=== PATIENT | female | born 1940 | race Caucasian/White ===

== ENCOUNTER → 2016-06-05 | Outpatient (CLI) | payer BC ==
[~2016-06-05] MED LIST: ASPEC81 PO; CLB/200 PO; CLOP1TAB15 PO; CLTP PO; ERGO1CAP35 PO; EYED; FLUO0.0543 TD; GATI0.5S OPL; LEVO25TA PO; LIDO5DIS10 TD; LTRSCR45 TD; METR0.7527 TD; NSNN50; PANT20TA PO; PRED1SUS3; SENN-61 PO; TRIA0.1O12 TD; TYLOTC500 PO
[2016-06-05 10:12] LABS: BLOOD UREA NITROGEN 12 mg/dl (7-18); BUN/CREATININE RATIO 16.1 (10-20); CARBON DIOXIDE 29 mmol/L (21-32); CHLORIDE 105 mmol/L (98-107); CREATININE 0.74 mg/dl (0.60-1.20); GLUCOSE 75 mg/dl (70-99); POTASSIUM 4.3 mmol/L (3.5-5.1); SODIUM 143 mmol/L (136-145)
[2016-06-05 10:22] LABS: ALB/GLOB RATIO 1.2 (0.9-2); ALKALINE PHOSPHATASE 105 U/L (45-117); ALT/SGPT 30 U/L (12-78); AST/SGOT 17 U/L (15-37); CHOLESTEROL 163 mg/dl (0-200); CHOLESTEROL/HDL RATIO 3.1; HDL CHOLESTEROL 53 mg/dl; LDL CHOLESTEROL CALCULATED 75 mg/dl; THYROID STIMULATING HORMONE 0.336 uIu/ml (0.300-4.500); TRIGLYCERIDES 173 mg/dl (0-150); VERY LOW DENSITY LIPOPROT CALC 35 mg/dl
[2016-06-05 10:28] LABS: ESTIMATED AVERAGE GLUCOSE 123 mg/dl; HA1C FLAG Normal (Normal)
== END | disposition home or self-care (01) ==
LOC: C.LAB 07:02
PROVIDERS: ATTEND Family Medicine
DX: M85.80 Other specified disorders of bone density and structure, unspecified site (principal); E55.9 Vitamin D deficiency, unspecified; E78.1 Pure hyperglyceridemia; E03.9 Hypothyroidism, unspecified; R73.03 Prediabetes

== ENCOUNTER → 2016-06-05 | Outpatient (CLI) | payer BC ==
[~2016-06-05] VITALS: Ht 157.5 cm; Wt 90.4 kg
[2016-06-05 16:18] VITALS: BP 135/68; PULSE 98; Ht 157.5 cm; Wt 90.4 kg
== END | disposition home or self-care (01) ==
LOC: C.NEUR 13:35
PROVIDERS: ATTEND Internal Medicine Pulmonary Disease
DX: G47.33 Obstructive sleep apnea (adult) (pediatric) (principal); J44.9 Chronic obstructive pulmonary disease, unspecified; M85.80 Other specified disorders of bone density and structure, unspecified site; E55.9 Vitamin D deficiency, unspecified; E78.1 Pure hyperglyceridemia; E03.9 Hypothyroidism, unspecified; R73.03 Prediabetes; Z79.899 Other long term (current) drug therapy

== ENCOUNTER → 2016-09-15 | Outpatient (CLI) | payer BC ==
[~2016-09-15] MED LIST changes: -PANT20TA PO; +PANT20TA2 PO
--- NOTE | 2016-09-15 15:24 | MAMMOGRAPHY REPORT ---
BILATERAL DIGITAL SCREENING MAMMOGRAM TOMOSYNTHESIS WITH CAD: 09/15/2016 CLINICAL HISTORY: Asymptomatic. Personal history of breast cancer. TECHNIQUE: Breast tomosynthesis in addition to standard 2D mammography was performed. Current study was also evaluated with a Computer Aided Detection (CAD) system. COMPARISON: Comparison is made to exams dated: 09/15/2015 mammogram, 09/09/2014 mammogram, 03/12/2014 mammogram, 09/08/2013 mammogram, 09/06/2012 mammogram, and 09/04/2011 mammogram - [facility]. BREAST COMPOSITION: There are scattered areas of fibroglandular density in both breasts. FINDINGS: No suspicious masses, calcifications, or areas of architectural distortion are noted in e ither breast. There has been no significant interval change compared to prior exams. There are stab le post surgical changes in the right 12:00 breast from prior lumpectomy, including stable atg architect ural distortion, density, and coarse dystrophic calcifications at the lumpectomy bed. A linear scar marker denotes a scar on the right superior breast. Other scattered bilateral benign-appearing radha cifications are not significantly changed. IMPRESSION: ACR BI-RADS CATEGORY 2: BENIGN There is no mammographic evidence of malignancy. A 1 year screening mammogram is recommended. The p atient will receive written notification of the results. Approximately 10% of breast cancers are not detected with mammography. A negative mammographic repor t should not delay biopsy if a clinically suggestive mass is present. Yanique Payne M.D. /:09/15/2016 14:53:52 Director Digital Advertising: Michelle HIGGINBOTHAM(Aravind)(Morgan), [facility] letter sent: Normal 1/2 BI-RADS Code: ACR BI-RADS Category 2: Benign
== END ==
LOC: C.MAMM 08:54
PROVIDERS: ATTEND Student in an Organized Health Care Education/Training Program
DX: Z12.31 Encounter for screening mammogram for malignant neoplasm of breast (principal)

== ENCOUNTER → 2017-01-02 | Outpatient (CLI) | payer BC ==
[~2017-01-02] VITALS: Ht 157.5 cm; Wt 87.5 kg
[~2017-01-02] MED LIST changes: +PANT20TA PO; -PANT20TA2 PO
[2017-01-02 12:01] VITALS: BP 137/72; PULSE 90; Ht 157.5 cm; Wt 87.5 kg
== END | disposition home or self-care (01) ==
LOC: C.NEUR 11:46
PROVIDERS: ATTEND Internal Medicine Pulmonary Disease
DX: G47.33 Obstructive sleep apnea (adult) (pediatric) (principal); G47.00 Insomnia, unspecified

== ENCOUNTER → 2017-01-25 | Outpatient (CLI) | payer BC | END | disposition home or self-care (01) | LOC: C.MAMM 08:48 | PROVIDERS: ATTEND Family Medicine | DX: M85.851 Other specified disorders of bone density and structure, right thigh (principal) ==

== ENCOUNTER → 2017-08-09 | Outpatient (CLI) | payer BC ==
[~2017-08-09] MED LIST changes: -PANT20TA PO; +PANT20TA2 PO
[2017-08-09 12:21] LABS: BASO % 0.8 %; BASO ABS # 0.08 K/uL (0-0.2); EOS % 3.7 %; EOS ABS # 0.39 K/uL (0-0.5); HEMOGLOBIN 15.6 g/dL (12.0-16.0); IG# 0.03 K/uL (0.00-0.02); MEAN CELL VOLUME 91.6 fL (80-100); MEAN CORPUSCULAR HEMOGLOBIN 30.4 pg (25-34); MEAN CORPUSCULAR HGB CONC 33.2 g/dl (32-36); MEAN PLATELET VOLUME 9.2 fL (7.4-10.4); MONO % 6.4 %; MONO ABS # 0.67 K/uL (0.11-0.59); NEUT % 69.8 %; NEUT ABS # 7.34 K/uL (1.4-6.5); PLATELET COUNT 265 K/uL (130-400); RED CELL DISTRIBUTION WIDTH CV 14.6 % (11.5-14.5); RED CELL DISTRIBUTION WIDTH SD 49.4 fL (36.4-46.3); WHITE BLOOD COUNT 10.51 K/uL (4.8-10.8)
[2017-08-09 12:33] LABS: INR 0.9 (0.9-1.1)
[2017-08-09 12:39] LABS: BLOOD UREA NITROGEN 8 mg/dl (7-18); CALCIUM 9.6 mg/dl (8.5-10.1); CARBON DIOXIDE 30 mmol/L (21-32); GLUCOSE 88 mg/dl (70-99); POTASSIUM 4.8 mmol/L (3.5-5.1); SODIUM 140 mmol/L (136-145)
== END | disposition home or self-care (01) ==
LOC: C.LABBFT 08:19
PROVIDERS: ATTEND Nurse Practitioner
DX: T14.8XXA Other injury of unspecified body region, initial encounter (principal); X58.XXXA Exposure to other specified factors, initial encounter

== ENCOUNTER 2019-03-28 08:28 | Inpatient (IN) ==
[2019-03-28] MEDS ORDERED: SODIUM CHLORIDE 0.9% 500 ML IV ONE ×2 (08:53→10:28)
[2019-03-28 09:15] LABS: Basophils # (auto) 0.03 K/uL (0-0.2); Basophils % (auto) 0.2 %; Eosinophils # (auto) 0.03 K/uL (0-0.5); Eosinophils % (auto) 0.2 %; Hematocrit (blood only) 47.4 % (37-47); Hemoglobin 15.7 g/dL (12.0-16.0); Immature Granulocytes # (auto) 0.07 K/uL (0.00-0.02); Immature Granulocytes % (auto) 0.4 %; Lymphocytes # (auto) 1.28 K/uL (1.2-3.4); Lymphocytes % (auto) 7.3 %; Mean Corpuscular Hemoglobin 30.5 pg (25-34); Mean Corpuscular Hgb Conc 33.1 g/dL (32-36); Mean Corpuscular Volume 92.2 fL (80-100); Mean Platelet Volume 9.3 fL (7.4-10.4); Monocytes # (auto) 0.89 K/uL (0.11-0.59); Monocytes % (auto) 5.1 %; Neutrophils # (auto) 15.17 K/uL (1.4-6.5); Neutrophils % (auto) 86.8 %; Platelet Count 180 K/uL (130-400); RDW Coefficient of Variation 13.9 % (11.5-14.5); Red Blood Count 5.14 M/uL (4.2-5.4); White Blood Count 17.47 K/uL (4.8-10.8)
[2019-03-28 09:18] LABS: Base Excess VBG -0.1 mEq/L; pH VBG 7.44 (7.36-7.41)
[2019-03-28 09:32] LABS: Albumin Level 3.3 gm/dl (3.4-5.0); BUN Creatinine Ratio 19.8 (10-20); Creatinine Clr Calc Pharmacy 42.1 ml/min; Est GFR (African American) 59.3; Est GFR (Non-African American) 51.2; Magnesium 2.1 mg/dl (1.8-2.4); Potassium 4.2 mmol/L (3.5-5.1)
--- NOTE | 2019-03-28 09:38 | XRay Report ---
XR chest 1V portable CLINICAL HISTORY: Chest Pain pain COMPARISON STUDY: 04/06/2013 FINDINGS: The bones soft tissues and hemidiaphragms are normal. The cardiomediastinal silhouette is n ormal. The lungs are clear. The pulmonary vasculature is normal. Mild basilar chronic interstitial ch patricia. IMPRESSION: Chronic change. No acute process. The above report was generated using voice recognition software. It may contain grammatical, syntax or spelling errors. Electronically signed by: Ari Muhammad M.D. 03/28/2019 9:37 AM
[2019-03-28 09:47] LABS: Albumin Globulin Ratio 0.9 (0.9-2); Bilirubin,Total 1.1 mg/dl (0.2-1); Globulin 3.6 gm/dl (2.5-4.0); Phosphorus 3.8 mg/dl (2.5-4.9); Thyroid Stimulating Hormone 0.552 uIu/ml (0.300-4.500); Total Protein 6.9 gm/dl (6.4-8.2); Troponin I 0.627 ng/ml (0-0.045)
[2019-03-28] MEDS ORDERED: OPTIRAY 320 125ml IV PRN (10:03)
--- NOTE | 2019-03-28 10:15 | CT Scan Report ---
CT angio chest PE protocol CT DOSE: 435.84 mGy.cm HISTORY: Chest pain PE TECHNIQUE: Multiaxial CT images of the chest were performed following the intravenous administration of contrast to evaluate the pulmonary arteries. Maximal intensity projection images were also obtaine d. A dose lowering technique was utilized adhering to the principles of ALARA. COMPARISON STUDY: 04/07/2013 FINDINGS: Study specifically targeted the pulmonary arterial vasculature. Filling defects are noted w ithin the pulmonary arterial structures bilaterally. This includes extensive involvement of the left upper lobe with moderate involvement of the left lower lobe arterial supply. There is significant involvement of the right perihilar as well as right upper and right lower lobe p ulmonary arterial vasculature. There is a associated saddle embolus. Moderate increase in prominence of the pulmonary arterial vasculature suggesting component of pulmona ry arterial hypertension. IMPRESSION: 1. Extensive bilateral pulmonary emboli. 2. Saddle embolus. 3. Developing pulmonary arterial hypertension. The above report was generated using voice recognition software. It may contain grammatical, syntax or spelling errors. Electronically signed by: Ari Muhammad M.D. 03/28/2019 10:13 AM
[2019-03-28 10:37] LABS: INR 1.1 (0.9-1.1); Partial Thromboplastin Ratio 0.9; Partial Thromboplastin Time 25.1 Seconds (21.0-31.0); Prothrombin Time 11.5 Seconds (9.0-12.0)
[2019-03-28] MEDS ORDERED: Heparin BOLUS **ED Use Only IV STA (11:49)
[2019-03-28] MEDS: HEPARIN SODIUM/DEXTROSE 25,000 UNITS/500 ML BAG IV SCH (11:54)
--- NOTE | 2019-03-28 12:08 | History & Physical Report ---
Date of Service March 28, 2019 Assessment & Plan (1) Elevated troponin: Probably secondary to strain from bilateral pulmonary emboli with small saddle embolism Echocardiogram ordered No chest pain Hemodynamically stable We will repeat troponin x2 EKG x2 in the mornings Follow on telemetry unit (2) Bilateral pulmonary embolism: Unknown etiology at this point Family history of clots Previous tobacco abuser who quit in 1998 Previous breast cancer in 2007 with no treatment since that time No current malignancy that the patient is aware of No sedentary activity Hypercoagulable work-up is ordered and labs have been drawn We will place patient on a heparin drip with weight-based protocol with bolus Check lower extremity Doppler to rule out DVT Monitor for hemodynamic change Early evidence of right heart strain -check echocardiogram (3) Graves disease: Radioactive iodine treatment at [facility] 1991 and [address] Marks Continue levothyroxine (4) Breast cancer: Found incidentally with MRI scanning in [address] 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 Fenton patient had some symptoms of stroke. She underwent MRI of the brain which did not reveal any evidence of acute or chronic stroke She did have some micro-ischemic vascular changes and was placed on outpatient clopidogrel 75 mg p.o. daily Several months ago the patient started taking the clopidogrel 75 mg every other day and continues this regimen (6) Acid reflux: Continue home regimen of omeprazole (7) Sacroiliitis: We will treat PRN if patient has pain. No current pain at this time Follows with pain clinic Monitor Patient will be placed on the service of Dr. Lew Rivera at this time. Dr. Kc will see the patient and countersigned this H&P and the plan for the day. 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 History of Present Illness Primary Care Provider: Silverio Andrade MD Attending: Dr. Kc Past medical history includes Graves' disease, breast cancer 2007, hyperlipidemia, sleep apnea on CPAP, hypothyroidism, GERD, microvascular ischemic disease on clopidogrel 75 mg every other day, prior tobacco abuse, obesity. Mrs. Young is a 78-year-old female who presented the emergency department with shortness of breath and was found to have saddle embolus with bilateral pulmonary emboli. Patient is hemodynamically stable and oxygenating well. She has some minimal EKG changes. CTA was positive for emboli and shows some early development of right heart strain. Patient states that she has no prior history of DVT, pulmonary embolus, or other thromboembolic disease. Patient does have a history of breast cancer 20 years ago. She is not on tamoxifen or any other agent at this time. Patient is on clopidogrel since 2011 after MRI showed minor foci of increased T2 signal within the white matter likely on a small vessel basis with no other evidence of acute or subacute inf arction. Patient recently change frequency of the medication several months ago and currently is on 75 mg every other day. Patient denies any pleuritic pain, hemoptysis, lower extremity edema, lower extremity pain, significant dyspnea or shortness of breath. She has no diaphoresis or skin changes. She has no other acute complaints. Allergies Allergy/AdvReac Type Severity Reaction Status Date / Time ampicillin [From Principen] Allergy Unknown Verified 03/28/19 09:28 doxycycline Allergy Unknown UNKNOWN Verified 03/28/19 09:28 morphine Allergy Unknown RASH, Verified 03/28/19 09:28 DROPS BLOOD PRESSURE DRASTICALLY nystatin [From Mycostatin] Allergy Unknown Verified 03/28/19 09:28 Sulfa (Sulfonamide Allergy Unknown . Verified 03/28/19 09:28 Antibiotics) Home Medications Home Medications Medication Instructions Recorded Confirmed Type sennosides 8.6 mg-docusate sodium 1 tab PO BID PRN 03/20/18 03/28/19 History 50 mg tablet calcium carbonate-vitamin D3 600 1 cap PO DAILY cap 12/25/18 03/28/19 History mg calcium-200 unit capsule clotrimazole-betamethasone 1 1 appln TOPICAL UD #1 gm 12/25/18 03/28/19 History %-0.05 % topical cream fluocinonide 0.05 % topical gel 1 appln TOPICAL UD #1 gm 12/25/18 03/28/19 History ipratropium bromide 42 mcg (0.06 2 sprays INTNAS BID ml 12/25/18 03/28/19 History %) nasal spray omeprazole 20 mg capsule,delayed 20 mg PO Q2D #30 cap 12/25/18 03/28/19 History release lidocaine 5 % topical patch 1 patch TOPICAL DAILY PRN #90 ea 01/06/19 03/28/19 Rx clopidogrel 75 mg tablet 75 mg PO DAILY tab 01/22/19 03/28/19 History ergocalciferol (vitamin D2) 50,000 50,000 units PO WEEKLY #14 cap 01/28/19 03/28/19 Rx unit capsule levothyroxine 125 mcg tablet 125 mcg PO DAILY #90 tab 01/28/19 03/28/19 Rx aspirin [Aspir-81] 81 mg PO DAILY 03/28/19 03/28/19 History Past Med/Surg History Medical History (Updated 03/28/19 @ 17:03 by Bautista Barker MD) Acid reflux (Chronic) Bilateral hip bursitis Breast cancer (Resolved 2007) "Abnormal right breast mammogram Status post biopsy revealing infiltrating ductal carcinoma Estrogen receptor positive, progesterone receptor positive, HER-2/wes positive Status post lumpectomy with sentinel lymph node biopsy stage [id number] Status post completion of radiation therapy 04/21/2008 received 6120 cGy " Graves disease (Chronic) Hip pain, bilateral (Chronic) History of TIA (transient ischemic attack) History of tobacco abuse Sacroiliitis (Chronic) Sleep apnea TIA (transient ischemic attack) Surgical History History of hip replacement (Resolved) left hip Hx of cholecystectomy (Resolved) Ovary removal, prophylactic (Resolved) S/P breast lumpectomy (Resolved) Family History Grandmother Breast cancer Mother Stroke Social History Preferred Language: Yoruba Communication Ability: Effective Visual Impairment: Limited Hearing Ability: Normal 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 Required: No Beliefs That Will Affect Care: None marital status: Current Living Situation: Spouse current occupational status: retired Feels Safe at Home: Yes Smoking Status: Former smoker Tobacco Type: cigarettes ; packs per day: 1 ; Number of Years Since Quit: 20 ; Second Hand Exposure: No ; Hx Alcohol Use: No Hx Substance Use: No Physical Activity Frequency: 3-4 Times per Week Review of Systems Review of Systems: All systems reviewed & are unremarkable except as noted in HPI & below Physical Exam Physical Exam: GENERAL : No acute distress EYES: No icterus, gaze conjugate NOSE: No evidence of epistaxis MOUTH: No lesions or candidiasis NECK: Supple LUNGS: CTA B/L, no wheezes, rales or rhonchi. Some fine crackles in the right base HEART: Regular, rate controlled ABDOMEN: Soft, NT, ND, BS Present EXTREMITIES: No LE edema, pedal pulses intact and equal bilaterally NEURO: A&OX3. No pronator drift. No facial droop or deviation of tongue. Pupils equal round and reactive to light. Cerebellar function intact with rapid alternating movements and with [id number]. Deep tendon reflexes 2/4 to the biceps, brachioradialis, and patellar tendons. Toes downgoing bilaterally. Strength equal and appropriate upper and lower extremities. Results & Data Vital Signs (Past 12 Hours) Vital Signs Temp Pulse Pulse Resp BP BP Pulse Ox 03/28/19 10:20 107 H 20 133/84 96 03/28/19 09:33 112 H 22 119/73 95 03/28/19 09:01 116 H 24 95 03/28/19 08:39 96 03/28/19 08:30 36.3 C L 134 H 24 128/73 91 Laboratory Results 03/28/19 09:04 03/28/19 09:[address] angio chest PE protocol CT DOSE: 435.84 mGy.cm HISTORY: Chest pain PE TECHNIQUE: Multiaxial CT images of the chest were performed following the intravenous administration of contrast to evaluate the pulmonary arteries. Maximal intensity projection images were also obtained. A dose lowering t echnique was utilized adhering to the principles of ALARA. COMPARISON STUDY: 04/07/2013 FINDINGS: Study specifically targeted the pulmonary arterial vasculature. Filling defects are noted within the pulmonary arterial structures bilaterally. This includes extensive involvement of the left upper lobe with moderate involvement of the left lower lobe arterial supply. There is significant involvement of the right perihilar as well as right upper and right lower lobe pulmonary arterial vasculature. There is a associated saddle embolus. Moderate increase in prominence of the pulmonary arterial vasculature suggesting component of pulmonary arterial hypertension. IMPRESSION: 1. Extensive bilateral pulmonary emboli. 2. Saddle embolus. 3. Developing pulmonary arterial hypertension. Electronically signed by: Ari Muhammad M.D. 03/28/2019 10:13 AM ECG Additional Comments: EKG 03/28/19 08:39 AM Vent. rate 122 BPM [place] interval 124 ms QRS duration 72 ms QT/QTc 312/444 ms P-R-T axes 75 102 50 Sinus tachycardia Possible Left atrial enlargement Rightward axis Nonspecific ST and T wave abnormality Abnormal ECG When compared with ECG of 26-OCT-2017 10:38, Vent. rate has increased BY 48 BPM T wave inversion now evident in Anterior leads Code Status & VTE Plan Code Status Full resuscitation VTE Prophylaxis Plan VTE Prophylaxis will be ordered: Yes Supervising Physician Co-Signing Physician Notes I have personally evaluated and examined this patient. I agree with assessment and plan of Anai Wall PA-C. During my evaluation the patient states she feels significantly improved her chest pain has resolved she still feels mild exertional dyspnea when moving about the bed but generally much better. History confirmed that this has been going on over several days, I suspect that a lot of the pulmonary embolism has been consolidated clot over several days which would be less amenable to thr ombolysis. She attends [employer] 3 times a week and is hopeful to get back to her prior level of activity. Continue with heparin will likely benefit from beta-zoe and lisinopril in near future.
--- NOTE | 2019-03-28 14:46 | Billing Data ---
Coding Level of Care Code 88250 Initial Inpt Care Lvl 3
[2019-03-28] MEDS ORDERED: LIDOCAINE 5% 1 PATCH TD PRN (15:00)
[2019-03-28] MEDS ORDERED: ONDANSETRON INJ 2 MG/ML 2 ML VIAL IV PRN (15:00)
[2019-03-28] MEDS ORDERED: POLYETHYLENE (MIRALAX) 17 GM PACK PO PRN (15:00)
[2019-03-28] MEDS ORDERED: ACETAMINOPHEN 325 MG TAB PO PRN (15:00)
[2019-03-28] MEDS ORDERED: NON-FORMULARY MEDICATION (Fluocinonide 1 APPLN) TOP SCH (15:00)
[2019-03-28] MEDS ORDERED: DOCUSATE SODIUM/SENNA 50/8.6MG TAB PO PRN (15:00)
[2019-03-28 16:15] LABS: Basophils # (auto) 0.06 K/uL (0-0.2); Basophils % (auto) 0.4 %; Eosinophils # (auto) 0.08 K/uL (0-0.5); Eosinophils % (auto) 0.6 %; Hematocrit (blood only) 43.9 % (37-47); Hemoglobin 14.4 g/dL (12.0-16.0); Immature Granulocytes # (auto) 0.05 K/uL (0.00-0.02); Immature Granulocytes % (auto) 0.3 %; Lymphocytes # (auto) 2.32 K/uL (1.2-3.4); Lymphocytes % (auto) 16.1 %; Mean Corpuscular Hemoglobin 30.4 pg (25-34); Mean Corpuscular Hgb Conc 32.8 g/dL (32-36); Mean Corpuscular Volume 92.8 fL (80-100); Mean Platelet Volume 9.2 fL (7.4-10.4); Monocytes % (auto) 6.2 %; Neutrophils # (auto) 11.04 K/uL (1.4-6.5); Neutrophils % (auto) 76.4 %; Platelet Count 178 K/uL (130-400); RDW Coefficient of Variation 13.8 % (11.5-14.5); Red Blood Count 4.73 M/uL (4.2-5.4); White Blood Count 14.45 K/uL (4.8-10.8)
--- NOTE | 2019-03-28 16:21 | Emergency Department Note ---
Entered by Noman Woodall acting as a scribe for History of Present Illness General Chief complaint: Chest Pain Stated complaint: CHEST PAINS,SOB WITH EXERTION Time Seen by Provider: 03/28/19 08:36 Source: patient and RN notes reviewed History of Present Illness Onset (ago): day(s) 3 Location: chest Pain Consistency: + other (worsening) Maximum Pain Intensity: 5 Quality: + other (chest pain) Relieved By: + other ("being quiet" ) Exacerbated By: + other (laying down) Associated symptoms: + loss of appetite, + shortness of breath and + other (+low O2 saturation; -congestion; -diarrhea; -urinary symptoms ); no cough, no fever/chills and no nausea/vomiting The patient is a 78 year old female, with past medical history of breast cancer, who presents to the Emergency Room with complaints of worsening chest pain over the past 3 days. The patient notes the chest pain is worsened when she is laying down, but she notes it is relieved by being quiet. The RN notes the patient had an oxygen saturation of 91 at triage, and the patient was short of breath at triage. The patient reports she has had a loss of appetite. The patient denies fever, chills, cough, congestion, nausea/vomiting, diarrhea, or urinary symptoms. The patient also denies being on any water pills currently or having a history of COPD. The patient reports she uses a CPAP at night due to sleep apnea, but the patient states that she is not normally on oxygen. The patient reports she quit smoking 15 years ago after smoking since high school. The patient denies being on blood thinners. Home Medications Home Medications Medication Instructions Recorded Confirmed Type sennosides 8.6 mg-docusate sodium 1 tab PO BID PRN 03/20/18 03/28/19 History 50 mg tablet calcium carbonate-vitamin D3 600 1 cap PO DAILY cap 12/25/18 03/28/19 History mg calcium-200 unit capsule clotrimazole-betamethasone 1 1 appln TOPICAL UD #1 gm 12/25/18 03/28/19 History %-0.05 % topical cream fluocinonide 0.05 % topical gel 1 appln TOPICAL UD #1 gm 12/25/18 03/28/19 History ipratropium bromide 42 mcg (0.06 2 sprays INTNAS BID ml 12/25/18 03/28/19 History %) nasal spray omeprazole 20 mg capsule,delayed 20 mg PO Q2D #30 cap 12/25/18 03/28/19 History release lidocaine 5 % topical patch 1 patch TOPICAL DAILY PRN #90 ea 01/06/19 03/28/19 Rx clopidogrel 75 mg tablet 75 mg PO DAILY tab 01/22/19 03/28/19 History ergocalciferol (vitamin D2) 50,000 50,000 units PO WEEKLY #14 cap 01/28/19 03/28/19 Rx unit capsule levothyroxine 125 mcg tablet 125 mcg PO DAILY #90 tab 01/28/19 03/28/19 Rx aspirin [Aspir-81] 81 mg PO DAILY 03/28/19 03/28/19 History Allergies Allergy/AdvReac Type Severity Reaction Status Date / Time ampicillin [From Principen] Allergy Unknown Verified 03/28/19 09:28 doxycycline Allergy Unknown UNKNOWN Verified 03/28/19 09:28 morphine Allergy Unknown RASH, Verified 03/28/19 09:28 DROPS BLOOD PRESSURE DRASTICALLY nystatin [From Mycostatin] Allergy Unknown Verified 03/28/19 09:28 Sulfa (Sulfonamide Allergy Unknown . Verified 03/28/19 09:28 Antibiotics) Past Med/Surg History Medical History (Updated 03/28/19 @ 17:03 by Bautista Barker MD) Acid reflux (Chronic) Bilateral hip bursitis Breast cancer (Resolved 2007) "Abnormal right breast mammogram Status post biopsy revealing infiltrating ductal carcinoma Estrogen receptor positive, progesterone receptor positive, HER-2/wes positive Status post lumpectomy with sentinel lymph node biopsy stage [id number] Status post completion of radiation therapy 04/21/2008 received 6120 cGy " Graves disease (Chronic) Hip pain, bilateral (Chronic) History of TIA (transient ischemic attack) History of tobacco abuse Sacroiliitis (Chronic) Sleep apnea TIA (transient ischemic attack) Surgical History History of hip replacement (Resolved) left hip Hx of cholecystectomy (Resolved) Ovary removal, prophylactic (Resolved) S/P breast lumpectomy (Resolved) Family History Grandmother Breast cancer Mother Stroke Social History Preferred Language: Trinidadian Communication Ability: Effective Visual Impairment: Limited Hearing Ability: Normal 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 and A total of 10 systems reviewed and were otherwise negative Physical Exam Vital Signs Vital Signs - 24 hr 03/28/19 08:30 03/28/19 08:39 03/28/19 09:01 Temperature 36.3 C L Temperature Source Oral Pulse Rate 134 H 116 H Pulse Rate [Apical] Pulse Rate from SpO2 Sensor Pulse Rhythm Regular Respiratory Rate 24 24 Respiratory Depth Normal Blood Pressure 128/73 Blood Pressure [Right Arm] Blood Pressure Mean 91 Blood Pressure Mean [Right Arm] Pulse Oximetry 91 96 95 Oxygen Delivery Method Room Air Nasal Cannula Nasal Cannula Oxygen Flow Rate 2 2 Sepsis Recent Fever Within 48 Hours No Sepsis Action Taken by Nursing No Action Required 03/28/19 09:33 03/28/19 10:20 03/28/19 11:00 Temperature Temperature Source Pulse Rate 103 H Pulse Rate [Apical] 112 H 107 H Pulse Rate from SpO2 Sensor 104 H Pulse Rhythm Respiratory Rate 22 20 27 H Respiratory Depth Blood Pressure 138/80 Blood Pressure [Right Arm] 119/73 133/84 Blood Pressure Mean 98 Blood Pressure Mean [Right Arm] 88 100 Pulse Oximetry 95 96 94 Oxygen Delivery Method Room Air Room Air Oxygen Flow Rate Sepsis Recent Fever Within 48 Hours Sepsis Action Taken by Nursing 03/28/19 11:58 03/28/19 12:00 03/28/19 12:30 Temperature Temperature Source Pulse Rate 107 H 109 H 102 H Pulse Rate [Apical] Pulse Rate from SpO2 Sensor 107 H 110 H 102 H Pulse Rhythm Respiratory Rate 32 H 35 H 24 Respiratory Depth Blood Pressure 128/73 124/72 120/82 Blood Pressure [Right Arm] Blood Pressure Mean 82 83 87 Blood Pressure Mean [Right Arm] Pulse Oximetry 95 95 94 Oxygen Delivery Method Oxygen Flow Rate Sepsis Recent Fever Within 48 Hours Sepsis Action Taken by Nursing 03/28/19 13:03 03/28/19 14:00 Temperature Temperature Source Pulse Rate 102 H Pulse Rate [Apical] Pulse Rate from SpO2 Sensor 103 H Pulse Rhythm Respiratory Rate 35 H Respiratory Depth Blood Pressure 117/69 Blood Pressure [Right Arm] Blood Pressure Mean 75 Blood Pressure Mean [Right Arm] Pulse Oximetry 94 96 Oxygen Delivery Method Nasal Cannula Oxygen Flow Rate 2 Sepsis Recent Fever Within 48 Hours Sepsis Action Taken by Nursing GENERAL: Awake, alert, well-appearing, in no distress HENT: Normocephalic, atraumatic. Oropharynx unremarkable. Mucous membranes dry. EYES: Normal conjunctiva. Sclera non-icteric. NECK: Supple. No nuchal rigidity. FROM. No JVD. RESPIRATORY: CTAB. Mildly dyspneic. CARDIAC: Tachycardic rate, normal rhythm. Extremities warm and well perfused. Pulses equal. ABDOMEN: Soft, non-distended. No tenderness to palpation. No rebound or guarding. No masses. RECTAL: Deferred. MUSCULOSKELETAL: Chest examination reveals no tenderness. The back is symmetrical on inspection without obvious abnormality. There is no CVA tenderness to palpation. No joint edema. LOWER EXTREMITIES: Calves are equal size bilaterally and non-tender. No edema. No discoloration. NEURO: Normal sensorium. No sensory or motor deficits noted. SKIN: No rash or jaundice noted. Procedures Free Text Procedures Limited Point of Care Cardiac Ultrasound performed by me: Indication: Dyspnea / Saddle pulmonary embolism Findings: Limited echocardiography revealed no pericardial fluid. RV wall motion appeared abnormal with positive Mconnell's sign. Additional findings: RV dilation, bulging of septum into LV Impression: Positive Mireles's sign. Right heart strain. Course Course 0849: Past medical records reviewed. The patient was evaluated in room B10. A complete history and physical exam was performed. 1048: I discussed the patient's case with Dr. Miner [facility]. 1059: I reviewed the patient's case with Frank Abebe [facility]. He will evaluate the patient for further management. Consultations Consultation #1: I discussed the patient's case with Dr. Miner [facility]. Time: 10:48 Consultation #2: I reviewed the patient's case with Frank Abebe [facility]. He will evaluate the patient for further management. Time: 10:59 Administered Medications Aspirin (Ecotrin Ectab) 81 mg PO DAILY [facility] Stop: 04/27/19 14:59 Last Admin: 03/28/19 16:46 Dose: 81 mg Documented by: [id number] Clopidogrel Bisulfate (Plavix) [address] [facility] Stop: 04/27/19 14:59 Last Admin: 03/28/19 16:46 Dose: 75 mg Documented by: [id number] Heparin Sodium/Dextrose (Heparin Sodium/Dextrose) 25,000 units in 500 mls @ 21 mls/hr IV .[id number] [facility]; Protocol Stop: 04/27/19 10:29 Last Admin: 03/28/19 11:54 Dose: 1,050 units/hr, 21 mls/hr Documented by: [id number] Cosigned by: [id number] Ioversol (Optiray 320 125ml) 119 ml IV ONCE PRN PRN Reason: Interaction Checking Stop: 04/01/19 10:02 Last Admin: 03/28/19 10:04 Dose: 119 ml Documented by: [id number] [facility]othy[facility]ine [facility] Stop: 04/27/19 14:59 Last Admin: 03/28/19 16:46 Dose: 125 mcg Documented by: [id number] Discontinued Medications Heparin Sodium (Porcine) (Heparin Iv Bolus) 5,000 units IV NOW STA Stop: 03/28/19 11:50 Last Admin: 03/28/19 11:54 Dose: 5,000 units Documented by: [id number] Cosigned by: [id number] Heparin Sodium/Dextrose () 1 ea IV NOW STA; Protocol Stop: 03/28/19 10:29 Last Admin: 03/28/19 11:55 Dose: 1 ea Documented by: [id number] Sodium Chloride (Nss) 500 mls @ 999 mls/hr IV .Q31M ONE Stop: 03/28/19 09:23 Last Infusion: 03/28/19 09:57 Dose: 0 mls/hr Documented by: [id number] Admin: 03/28/19 09:04 Dose: 999 mls/hr Documented by: [id number] Sodium Chloride (Nss) 500 mls @ 999 mls/hr IV .Q31M ONE Stop: 03/28/19 10:58 Last Infusion: 03/28/19 12:55 Dose: 0 mls/hr Documented by: [id number] Admin: 03/28/19 11:55 Dose: 999 mls/hr Documented by: [id number] Critical Care Time Critical Care Time: Yes Total Critical Care Time: 90 I have personally spent greater than 90 minutes of critical care time in the direct management of this patient. This includes bedside care, interpretation of diagnostic studies, and testing, discussion with consultants, patient, and family members, and other required patient management activities. This 90 minutes is in excess of all separately billable procedures. Medical Decision Making Differential Diagnosis Differential diagnosis: Etiologies such as infections, reactive airway disease, pneumonia, pneumothorax, COPD, CHF, cardiac ischemia, pulmonary embolism, musculoskeletal, gastrointestinal, as well as others were entertained. Medical Records Attestation: I reviewed the patient's medical records. Home Medications Current Medication List: was personally reviewed by me Laboratory Data Attestation: I reviewed the patient's lab results. Result diagrams: 03/28/19 15:53 03/28/19 15:53 Lab Results 03/28/19 03/28/19 03/28/19 Range/Units 09:04 09:04 09:04 WBC 17.47 H (4.8-10.8) K/uL RBC 5.14 (4.2-5.4) M/uL Hgb 15.7 (12.0-16.0) g/dL Hct 47.4 H (37-47) % MCV 92.2 (80-100) fL MCH 30.5 (25-34) pg MCHC 33.1 (32-36) g/dL RDW Std Deviation 47.0 H (36.4-46.3) fL RDW Coeff of Jean 13.9 (11.5-14.5) % Plt Count 180 (130-400) K/uL MPV 9.3 (7.4-10.4) fL Immature Gran % (Auto) 0.4 % Neut % (Auto) 86.8 % Lymph % (Auto) 7.3 % [place] % (Auto) 5.1 % Eos % (Auto) 0.2 % Baso % (Auto) 0.2 % Immature Gran # (Auto) 0.07 H (0.00-0.02) K/uL Neut # (Auto) 15.17 H (1.4-6.5) K/uL Lymph # (Auto) 1.28 (1.2-3.4) K/uL [place] # (Auto) 0.89 H (0.11-0.59) K/uL Eos # (Auto) 0.03 (0-0.5) K/uL Baso # (Auto) 0.03 (0-0.2) K/uL PT (9.0-12.0) Seconds INR (0.9-1.1) APTT (21.0-31.0) Seconds PTT Ratio VBG pH 7.44 H (7.36-7.41) VBG pCO2 35 L (38-50) mmHg VBG pO2 34 mmHg VBG HCO3 23 mmol/L VBG O2 Saturation 65.0 % VBG Base Excess -0.1 mEq/L Barometric Pressure 732.1 mm/Hg Sodium 139 (136-145) mmol/L Potassium 4.2 (3.5-5.1) mmol/L Chloride 108 H (98-107) mmol/L Carbon Dioxide 21 (21-32) mmol/L Anion Gap 10.0 (3-11) BUN 21 H (7-18) mg/dl Creatinine 1.05 (0.6-1.2) mg/dl Est Cr Clr Drug Dosing 42.1 ml/min Est GFR ( Amer) 59.3 Est GFR (Non-Af Amer) 51.2 BUN/Creatinine Ratio 19.8 (10-20) Glucose 140 H (70-99) mg/dl Calcium 9.0 (8.5-10.1) mg/dl Phosphorus 3.8 (2.5-4.9) mg/dl Magnesium 2.1 (1.8-2.4) mg/dl Total Bilirubin 1.1 H (0.2-1) mg/dl AST 13 L (15-37) U/L ALT 21 (12-78) U/L Alkaline Phosphatase 92 (45-117) U/L Troponin I 0.627 H* (0-0.045) ng/ml NT-Pro-B Natriuret Pep 4739 H (0-1800) pg/ml Total Protein 6.9 (6.4-8.2) gm/dl Albumin 3.3 L (3.4-5.0) gm/dl Globulin 3.6 (2.5-4.0) gm/dl Albumin/Globulin Ratio 0.9 (0.9-2) Lipase 102 (73-393) U/L TSH 0.552 (0.300-4.500) uIu/ml Blood Type Antibody Screen 03/28/19 03/28/19 Range/Units 10:17 11:26 WBC (4.8-10.8) K/uL RBC (4.2-5.4) M/uL Hgb (12.0-16.0) g/dL Hct (37-47) % MCV (80-100) fL MCH (25-34) pg MCHC (32-36) g/dL RDW Std Deviation (36.4-46.3) fL RDW Coeff of Jean (11.5-14.5) % Plt Count (130-400) K/uL MPV (7.4-10.4) fL Immature Gran % (Auto) % Neut % (Auto) % Lymph % (Auto) % [place] % (Auto) % Eos % (Auto) % Baso % (Auto) % Immature Gran # (Auto) (0.00-0.02) K/uL Neut # (Auto) (1.4-6.5) K/uL Lymph # (Auto) (1.2-3.4) K/uL [place] # (Auto) (0.11-0.59) K/uL Eos # (Auto) (0-0.5) K/uL Baso # (Auto) (0-0.2) K/uL PT 11.5 (9.0-12.0) Seconds INR 1.1 (0.9-1.1) APTT 25.1 (21.0-31.0) Seconds PTT Ratio 0.9 VBG pH (7.36-7.41) VBG pCO2 (38-50) mmHg VBG pO2 mmHg VBG HCO3 mmol/L VBG O2 Saturation % VBG Base Excess mEq/L Barometric Pressure mm/Hg Sodium (136-145) mmol/L Potassium (3.5-5.1) mmol/L Chloride (98-107) mmol/L Carbon Dioxide (21-32) mmol/L Anion Gap (3-11) BUN (7-18) mg/dl Creatinine (0.6-1.2) mg/dl Est Cr Clr Drug Dosing ml/min Est GFR ( Amer) Est GFR (Non-Af Amer) BUN/Creatinine Ratio (10-20) Glucose (70-99) mg/dl Calcium (8.5-10.1) mg/dl Phosphorus (2.5-4.9) mg/dl Magnesium (1.8-2.4) mg/dl Total Bilirubin (0.2-1) mg/dl AST (15-37) U/L ALT (12-78) U/L Alkaline Phosphatase (45-117) U/L Troponin I (0-0.045) ng/ml NT-Pro-B Natriuret Pep (0-1800) pg/ml Total Protein (6.4-8.2) gm/dl Albumin (3.4-5.0) gm/dl Globulin (2.5-4.0) gm/dl Albumin/Globulin Ratio (0.9-2) Lipase (73-393) U/L TSH (0.300-4.500) uIu/ml Blood Type O Positive Antibody Screen NEGATIVE Imaging Data Radiologist's Impression: Radiology results as stated below per my review and the radiologist's interpretation: XR chest 1V portable CLINICAL HISTORY: Chest Pain pain COMPARISON STUDY: 04/06/2013 FINDINGS: The bones soft tissues and hemidiaphragms are normal. The cardiomediastinal silhouette is normal. The lungs are clear. The pulmonary v asculature is normal. Mild basilar chronic interstitial change. IMPRESSION: Chronic change. No acute process. The above report was generated using voice recognition software. It may contain grammatical, syntax or spelling errors. Electronically signed by: Ari Muhammad M.D. 03/28/2019 9:[address] angio chest PE protocol CT DOSE: 435.84 mGy.cm HISTORY: Chest pain PE TECHNIQUE: Multiaxial CT images of the chest were performed following the intravenous administration of contrast to evaluate the pulmonary arteries. Maximal intensity projection images were also obtained. A dose lowering technique was utilized adhering to the principles of ALARA. COMPARISON STUDY: 04/07/2013 FINDINGS: Study specifically targeted the pulmonary arterial vasculature. Fill ing defects are noted within the pulmonary arterial structures bilaterally. This includes extensive involvement of the left upper lobe with moderate involvement of the left lower lobe arterial supply. There is significant involvement of the right perihilar as well as right upper and right lower lobe pulmonary arterial vasculature. There is a associated saddle embolus. Moderate increase in prominence of the pulmonary arterial vasculature suggesting component of pulmonary arterial hypertension. IMPRESSION: 1. Extensive bilateral pulmonary emboli. 2. Saddle embolus. 3. Developing pulmonary arterial hypertension. The above report was generated using voice recognition software. It may contain grammatical, syntax or spelling errors. Electronically signed by: Ari Muhammad M.D. 03/28/2019 10:13 AM ECG Data Attestation: I personally reviewed and interpreted this ECG as follows: Indication: + chest pain Rate (beats per minute): 122 Rhythm: + sinus tachycardia ECG [place]: + Right axis deviation ECG ST segments: + Nonspecific ST abnormalities ECG Findings: + Other (QTC 444; QRS 72) Blood Pressure Blood Pressure Findings: Elevated blood pressure Blood Pressure Disposition: elevated BP felt to be situational MDM Narrative The patient is a pleasant 78-year-old woman with a past medical history of remote breast cancer status post treatment without recurrence on yearly surveillance, history of sleep apnea on nightly CPAP who presents emergency department with worsening shortness of breath over the past 3 days in the setting of several weeks of shortness of breath and now with acute worsening last night where she reports unable to catch her breath when lying flat per HPI. On arrival the patient is mildly dyspneic but no acute distress, afebrile with heart rate in the 130s and respiratory rate in the 30s with O2 saturation 91% on room air and blood pressure otherwise stable ranging 110s-130s/60s/80s. EKG demonstrates sinus tachycardia at [address] and T wave abnormalities diffusely. There is no ST elevation. QTc 444 and QRS 72. Right axis deviation present new from October 26, 2017. On exam the patient appears clinically dry. She exhibits mild dyspnea/work of breathing but lungs are clear to auscultation bilaterally. Heart rate is tachycardic and regular. Exam is otherwise unremarkable. Chest x-ray negative for acute process. WBC 17.4, nonspecific. H/H 15.7/47.4 slightly increased from last month and consistent with the patient's clinically dry appearance. Platelets within normal limits. Chemistry without acidosis. Electrolytes and LFTs unremarkable. Creatinine 1.05 with BUN 21 consistent with the patient's clinically dry appearance. Troponin is elevated at 0.627 with a BNP elevated at 4700. CTA of the chest was performed and demonstrated extensive bilateral pulmonary emboli with saddle embo josh and prominence of the pulmonary arterial vasculature that is suggestive of developing pulmonary arterial hypertension. Patient continued to remain hemodynamically stable in terms of her blood pressure. On reevaluation the patient did report feeling somewhat improved after initial IV fluid hydration. A limited bedside echo was performed with suboptimal view but demonstrated evidence of right heart strain RV dilation, bulging of septum into LV and positive Mireles sign. Findings were reviewed with the patient and agreed with plan for admission and anticoagulation. The patient denies any history of intracranial or GI bleeding. Will initiate treatment with IV heparin bolus and drip. I did review the case with Dr. Arnold, ICU ice cream chef and given the patient has maintained stable blood pressures we agree that TPA is not indicated at this time and agrees with initiation of treatment with heparin. If patient were to demonstrate delay in improvement upon initiation of treatment then possible catheter directed lysis could be considered. Case was discussed with Frank Wall, [facility], who will evaluate the patient for admission under [facility] hospitalist, Dr. Rivera. Impression & Plan Acute saddle pulmonary embolus, Elevated troponin, Elevated brain natriuretic peptide (BNP) level, RAJEEV on CPAP Discharge Plan Visit Data *Final* Discharge Date/Time: 03/28/19 14:00 Chief Complaint: Chest Pain Stated Complaint: CHEST PAINS,SOB WITH EXERTION ED Provider: Bautista Barker Discharge Problem: Acute saddle pulmonary embolus, Elevated troponin, Elevated brain natriuretic peptide (BNP) level, RAJEEV on CPAP Patient Disposition: Being Evaluated by Hospitalist Discharge Instructions Interventions: ED Discharge Assessment Last Done: 03/28/19 14:00 Discharge Problem: Acute saddle pulmonary embolus Qualifiers: Acute cor pulmonale presence: with acute cor pulmonale Qualified Code(s): I26.02 - Saddle embolus of pulmonary artery with acute cor pulmonale The scribe's documentation has been prepared under my direction and personally reviewed by me in its entirety. I confirm that the note above accurately reflects all work, treatment, procedures, and medical decision making performed by me.
[2019-03-28 16:31] LABS: BUN Creatinine Ratio 22.1 (10-20); Calcium 8.5 mg/dl (8.5-10.1); Potassium 4.1 mmol/L (3.5-5.1)
[2019-03-28 16:42] LABS: Troponin I 0.474 ng/ml (0-0.045)
[2019-03-28] MEDS: ASPIRIN 81 MG ECTAB PO SCH (16:46)
[2019-03-28] MEDS: CLOPIDOGREL BISULFATE 75 MG TAB PO SCH (16:46)
[2019-03-28] MEDS: LEVOTHYROXINE SODIUM 125 MCG TABLET PO SCH (16:46)
[2019-03-28 18:45] LABS: Partial Thromboplastin Ratio 1.5; Partial Thromboplastin Time 40.3 Seconds (21.0-31.0)
[2019-03-28] MEDS ORDERED: HEPARIN IV BOLUS 5,000 UNITS in SYRINGE 0 ML IV ONE (20:15)
[2019-03-28] MEDS: IPRATROPIUM BROMIDE NASAL SPRAY 0.06% 15ML NAE SCH (20:19)
--- NOTE | 2019-03-28 20:20 | Ultrasound Report ---
BILATERAL LOWER EXTREMITY VENOUS DOPPLER HISTORY: Pulmonary embolus. COMPARISON STUDY: None. FINDINGS: No DVT within the left lower extremity. There is extensive thrombus within the right lower extremity including the right superficial femoral vein, posterior tibial vein, peroneal veins, loom inspector ior tibial veins, and the lesser saphenous vein. The majority of the thrombus is occlusive. IMPRESSION: 1. Extensive DVT within the right lower extremity. 2. No DVT within the left lower extremity. Electronically signed by: Asif Szymanski M.D. 03/28/2019 8:19 PM
[2019-03-29 02:33] LABS: Partial Thromboplastin Ratio 4.3
[2019-03-29 02:37] LABS: Partial Thromboplastin Time 117.1 Seconds (21.0-31.0)
[2019-03-29] MEDS: LEVOTHYROXINE SODIUM 125 MCG TABLET PO SCH (06:12)
[2019-03-29 07:01] LABS: Basophils # (auto) 0.06 K/uL (0-0.2); Basophils % (auto) 0.5 %; Eosinophils % (auto) 2.5 %; Hematocrit (blood only) 42.4 % (37-47); Hemoglobin 13.9 g/dL (12.0-16.0); Immature Granulocytes # (auto) 0.05 K/uL (0.00-0.02); Immature Granulocytes % (auto) 0.4 %; Lymphocytes # (auto) 1.86 K/uL (1.2-3.4); Lymphocytes % (auto) 15.7 %; Mean Corpuscular Hemoglobin 30.4 pg (25-34); Mean Corpuscular Hgb Conc 32.8 g/dL (32-36); Mean Corpuscular Volume 92.8 fL (80-100); Mean Platelet Volume 9.7 fL (7.4-10.4); Monocytes # (auto) 0.82 K/uL (0.11-0.59); Monocytes % (auto) 6.9 %; Neutrophils # (auto) 8.74 K/uL (1.4-6.5); Platelet Count 165 K/uL (130-400); RDW Coefficient of Variation 13.9 % (11.5-14.5); Red Blood Count 4.57 M/uL (4.2-5.4); White Blood Count 11.83 K/uL (4.8-10.8)
[2019-03-29 07:34] LABS: BUN Creatinine Ratio 21.4 (10-20); Creatinine Clr Calc Pharmacy 57.9 ml/min; Est GFR (African American) 86.3; Est GFR (Non-African American) 74.5
[2019-03-29] MEDS: IPRATROPIUM BROMIDE NASAL SPRAY 0.06% 15ML NAE SCH ×2 (08:43→21:24)
[2019-03-29] MEDS: ASPIRIN 81 MG ECTAB PO SCH (08:44)
[2019-03-29] MEDS: CLOPIDOGREL BISULFATE 75 MG TAB PO SCH (08:44)
[2019-03-29] MEDS: CALCIUM 600MG + VIT D 400 IU TAB PO SCH (08:44)
[2019-03-29] MEDS: HEPARIN SODIUM/DEXTROSE 25,000 UNITS/500 ML BAG IV SCH (08:58)
--- NOTE | 2019-03-29 09:30 | Hospitalist Progress Note ---
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 3x a week) Hypercoagulable work-up is ordered -- will need follow up with PCP continue on heparin drip over the weekend, will be 72 hours on Sunday convert to oral agent, likely Xarelto, on Sunday and if she remains stable d/c to home Sunday afternoon/evening discussed with RN, monitor for any signs of hypotension as we would give tPA if she goes into obstructive shock (2) DVT (deep venous thrombosis): right leg, cause of the PE no signs or symptoms of DVT (no swelling, no calf pain) heparin drip, Xarelto on d/c (3) Elevated troponin: secondary to strain from bilateral pulmonary emboli with small saddle embolism Echocardiogram shows signs of right heart strain, LV EF preserved, no regional WM abnormalities no current chest pain Hemodynamically stable (4) Graves disease: Radioactive iodine treatment at [facility] 1991 and [address] Marks Continue levothyroxine (5) Breast cancer: Found incidentally with MRI scanning in [address] 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 Fenton patient had some symptoms of stroke. She underwent MRI of the brain which did not reveal any evidence of acute or chronic stroke She did have some micro-ischemic vascular changes and was placed on outpatient clopidogrel 75 mg p.o. daily Several months ago the patient started taking the clopidogrel 75 mg every other day and continues this regimen (7) Acid reflux: Continue home regimen of omeprazole (8) Sacroiliitis: We will treat PRN if patient has pain. No current pain at this time Follows with pain clinic Monitor Plan: keep on tele over the weekend with saddle embolism likely d/c to home on Sunday afternoon Subjective patient feeling quite well, wanted to know when she can leave she does not feel short of breath and chest pain she had is resolved, reports she had intermittent pain for a few weeks again, denies any history long car trip or plane trips, breast cancer is in remission, no obvious risk factors for VTE reviewed labs, hypercoagulable work up sent out CBC and BMP stable, troponin minimally elevated at 0.29 reviewed echo, LV EF normal, elevated RV pressure and RV is dilated, signs of right heart strain as would be expected patient ate breakfast, no issues, says her appetite has been poor the past few weeks denies pain or swelling in right leg despite finding of DVT no fever or chills Review of Systems Review of Systems: All systems reviewed & are unremarkable except as noted in HPI & below Physical Exam Constitutional: WD/WN, vitals as above Eyes: PERRL, conjunctivae normal, anicteric sclerae ENMT: external ear and nose normal, oropharynx normal Neck: trachea midline, no thyromegaly Respiratory: normal respiratory effort, lungs clear to auscultation Cardiovascular: RRR, no murmur, no edema Gastrointestinal (Abdomen): normal bowel sounds, soft, nontender, no hepatosplenomegaly Musculoskeletal: no cyanosis or clubbing, extremities motor strength 5/5 Skin: no rashes, warm and dry Neurologic: patellar DTR's 2+ bilat, sensation intact and PERRL, EOMI, accommodation nl, no face palsy, no dysarthria Psychiatric: A+Ox3, euthymic affect Lymphatic: no cervical or axillary lymphadenopathy Results & Data Vital Signs (Past 12 Hours) Vital Signs Temp Pulse Resp BP Pulse Ox 03/29/19 07:59 36.7 C 85 18 122/71 99 03/29/19 04:18 36.4 C L 84 18 97/66 L 97 03/28/19 23:11 36.8 C 88 18 107/69 97 Laboratory Results Laboratory Results - last 24 hr 03/28/19 03/28/19 03/28/19 09:04 09:06 10:17 WBC RBC Hgb Hct MCV MCH MCHC RDW Std Deviation RDW Coeff of Jean Plt Count MPV Immature Gran % (Auto) Neut % (Auto) Lymph % (Auto) [place] % (Auto) Eos % (Auto) Baso % (Auto) Immature Gran # (Auto) Neut # (Auto) Lymph # (Auto) [place] # (Auto) Eos # (Auto) Baso # (Auto) PT 11.5 INR 1.1 APTT 25.1 PTT Ratio 0.9 LA PTT Screen Protein C Activity Protein S Activity Antithrombin III Activ Factor V Leiden Mutat Factor V Leiden Interp Sodium 139 Potassium 4.2 Chloride 108 H Carbon Dioxide 21 Anion Gap 10.0 BUN 21 H Creatinine 1.05 Est Cr Clr Drug Dosing 42.1 Est GFR ( Amer) 59.3 Est GFR (Non-Af Amer) 51.2 BUN/Creatinine Ratio 19.8 Glucose 140 H Calcium 9.0 Phosphorus 3.8 Magnesium 2.1 Total Bilirubin 1.1 H AST 13 L ALT 21 Alkaline Phosphatase 92 Troponin I 0.627 H* NT-Pro-B Natriuret Pep 4739 H Total Protein 6.9 Albumin 3.3 L Globulin 3.6 Albumin/Globulin Ratio 0.9 Lipase 102 Homocysteine Pending TSH 0.552 Beta-2-GPI IgG Ab Beta-2-GPI IgA Ab Beta-2-GPI IgM Ab Anti-Cardiolipin IgG Ab Anti-Cardiolipin IgA Ab Anti-Cardiolipin IgM Ab Prothrombin Gene Mutate Prothromb Gene Comment Blood Type Antibody Screen 03/28/19 03/28/19 03/28/19 11:26 11:26 15:53 WBC 14.45 H RBC 4.73 Hgb 14.4 Hct 43.9 MCV 92.8 MCH 30.4 MCHC 32.8 RDW Std Deviation 47.0 H RDW Coeff of Jean 13.8 Plt Count 178 MPV 9.2 Immature Gran % (Auto) 0.3 Neut % (Auto) 76.4 Lymph % (Auto) 16.1 [place] % (Auto) 6.2 Eos % (Auto) 0.6 Baso % (Auto) 0.4 Immature Gran # (Auto) 0.05 H Neut # (Auto) 11.04 H Lymph # (Auto) 2.32 [place] # (Auto) 0.90 H Eos # (Auto) 0.08 Baso # (Auto) 0.06 PT INR APTT PTT Ratio LA PTT Screen Pending Protein C Activity Pending Protein S Activity Pending Antithrombin III Activ Pending Factor V Leiden Mutat Pending Factor V Leiden Interp Pending Sodium Potassium Chloride Carbon Dioxide Anion Gap BUN Creatinine Est Cr Clr Drug Dosing Est GFR ( Amer) Est GFR (Non-Af Amer) BUN/Creatinine Ratio Glucose Calcium Phosphorus Magnesium Total Bilirubin AST ALT Alkaline Phosphatase Troponin I NT-Pro-B Natriuret Pep Total Protein Albumin Globulin Albumin/Globulin Ratio Lipase Homocysteine TSH Beta-2-GPI IgG Ab Pending Beta-2-GPI IgA Ab Pending Beta-2-GPI IgM Ab Pending Anti-Cardiolipin IgG Ab Pending Anti-Cardiolipin IgA Ab Pending Anti-Cardiolipin IgM Ab Pending Prothrombin Gene Mutate Pending Prothromb Gene Comment Pending Blood Type O Positive Antibody Screen NEGATIVE 03/28/19 03/28/19 03/28/19 15:53 18:16 23:38 WBC RBC Hgb Hct MCV MCH MCHC RDW Std Deviation RDW Coeff of Jean Plt Count MPV Immature Gran % (Auto) Neut % (Auto) Lymph % (Auto) [place] % (Auto) Eos % (Auto) Baso % (Auto) Immature Gran # (Auto) Neut # (Auto) Lymph # (Auto) [place] # (Auto) Eos # (Auto) Baso # (Auto) PT INR APTT 40.3 H PTT Ratio 1.5 LA PTT Screen Protein C Activity Protein S Activity Antithrombin III Activ Factor V Leiden Mutat Factor V Leiden Interp Sodium 141 Potassium 4.1 Chloride 112 H Carbon Dioxide 22 Anion Gap 7.0 BUN 18 Creatinine 0.82 Est Cr Clr Drug Dosing 54.0 Est GFR ( Amer) 80.0 Est GFR (Non-Af Amer) 69.0 BUN/Creatinine Ratio 22.1 H Glucose 97 Calcium 8.5 Phosphorus Magnesium Total Bilirubin AST ALT Alkaline Phosphatase Troponin I 0.474 H* 0.290 H* NT-Pro-B Natriuret Pep Total Protein Albumin Globulin Albumin/Globulin Ratio Lipase Homocysteine TSH Beta-2-GPI IgG Ab Beta-2-GPI IgA Ab Beta-2-GPI IgM Ab Anti-Cardiolipin IgG Ab Anti-Cardiolipin IgA Ab Anti-Cardiolipin IgM Ab Prothrombin Gene Mutate Prothromb Gene Comment Blood Type Antibody Screen 03/29/19 03/29/19 03/29/19 01:53 06:37 06:37 WBC 11.83 H RBC 4.57 Hgb 13.9 Hct 42.4 MCV 92.8 MCH 30.4 MCHC 32.8 RDW Std Deviation 47.0 H RDW Coeff of Jean 13.9 Plt Count 165 MPV 9.7 Immature Gran % (Auto) 0.4 Neut % (Auto) 74.0 Lymph % (Auto) 15.7 [place] % (Auto) 6.9 Eos % (Auto) 2.5 Baso % (Auto) 0.5 Immature Gran # (Auto) 0.05 H Neut # (Auto) 8.74 H Lymph # (Auto) 1.86 [place] # (Auto) 0.82 H Eos # (Auto) 0.30 Baso # (Auto) 0.06 PT INR APTT 117.1 H* PTT Ratio 4.3 LA PTT Screen Protein C Activity Protein S Activity Antithrombin III Activ Factor V Leiden Mutat Factor V Leiden Interp Sodium 137 Potassium 4.0 Chloride 106 Carbon Dioxide 26 Anion Gap 6.0 BUN 16 Creatinine 0.77 Est Cr Clr Drug Dosing 57.9 Est GFR ( Amer) 86.3 Est GFR (Non-Af Amer) 74.5 BUN/Creatinine Ratio 21.4 H Glucose 80 Calcium 9.0 Phosphorus Magnesium Total Bilirubin AST ALT Alkaline Phosphatase Troponin I NT-Pro-B Natriuret Pep Total Protein Albumin Globulin Albumin/Globulin Ratio Lipase Homocysteine TSH Beta-2-GPI IgG Ab Beta-2-GPI IgA Ab Beta-2-GPI IgM Ab Anti-Cardiolipin IgG Ab Anti-Cardiolipin IgA Ab Anti-Cardiolipin IgM Ab Prothrombin Gene Mutate Prothromb Gene Comment Blood Type Antibody Screen Medications Administered Current Inpatient Medications Acetaminophen (Tylenol) 650 mg PO Q4H PRN PRN Reason: Pain or Fever Stop: 04/27/19 14:59 Aspirin (Ecotrin Ectab) 81 mg PO DAILY [facility] Stop: 04/27/19 14:59 Last Admin: 03/29/19 08:44 Dose: 81 mg Documented by: Clopidogrel Bisulfate (Plavix) 75 mg PO DAILY [facility] Stop: 04/27/19 14:59 Last Admin: 03/29/19 08:44 Dose: 75 mg Documented by: Ergocalciferol (Vitamin D2) 50,000 units PO Th@0900 [facility] Stop: 05/03/19 08:59 Heparin Sodium/Dextrose (Heparin Sodium/Dextrose) 25,000 units in 500 mls @ 26 mls/hr IV .[id number] [facility]; Protocol Stop: 04/27/19 10:29 Last Admin: 03/29/19 08:58 Dose: 1,100 units/hr, 22 mls/hr Documented by: Ioversol (Optiray 320 125ml) 119 ml IV ONCE PRN PRN Reason: Interaction Checking Stop: 04/01/19 10:02 Last Admin: 03/28/19 10:04 Dose: 119 ml Documented by: Ipratropium [place] (Atrovent Nasal [place] 0.06%) 2 sprays GEM BID [facility] Stop: 04/27/19 20:59 Last Admin: 03/29/19 08:43 Dose: 2 sprays Documented by: Levothyroxine Sodium (Synthroid) 125 mcg PO DAILYBB [facility] Stop: 04/27/19 14:59 Last Admin: 03/29/19 06:12 Dose: 125 mcg Documented by: Lidocaine (Lidoderm 5%) 1 patch TD DAILY PRN PRN Reason: pain Stop: 04/27/19 14:59 Miscellaneous (Order Awaiting Action) 1 ea N/A QS [facility] Stop: 04/27/19 15:59 Last Admin: 03/29/19 08:59 Dose: Not Given Documented by: Miscellaneous (Order Awaiting Action) 1 ea N/A QS [facility] Stop: 04/27/19 15:59 Last Admin: 03/29/19 08:59 Dose: Not Given Documented by: Miscellaneous (Remove Lidoderm Patch) 1 ea N/A DAILY@2100 [facility] Stop: 04/27/19 20:59 Last Admin: 03/28/19 20:19 Dose: Not Given Documented by: Multivitamins/Minerals (Caltrate Plus) 1 tab PO DAILY [facility] Stop: 04/28/19 08:59 Last Admin: 03/29/19 08:44 Dose: 1 tab Documented by: Ondansetron HCl (Zofran) 4 mg IV Q6H PRN PRN Reason: Nausea Stop: 04/27/19 14:59 Pantoprazole Sodium (Protonix) 40 mg PO Q2D@0900 [facility] Stop: 04/29/19 08:59 Polyethylene Glycol (Miralax Powder Packet) 17 gm PO DAILY PRN PRN Reason: Constipation Stop: 04/27/19 14:59 Senna/Docusate Sodium (Senokot S) 1 tab PO BID PRN PRN Reason: Constipation Stop: 04/27/19 14:59 PG Care Time/CCT Total # of Minutes Spent Total Time Spent with Patient: Total time spent is greater than 50% in coordination of care (as documented) at patient's floor/unit and/or counseling patient:
[2019-03-29 10:12] LABS: Partial Thromboplastin Ratio 1.7
[2019-03-29 10:14] LABS: Partial Thromboplastin Time 46.4 Seconds (21.0-31.0)
[2019-03-29 15:49] LABS: Partial Thromboplastin Ratio 1.5; Partial Thromboplastin Time 39.9 Seconds (21.0-31.0)
[2019-03-29] MEDS ORDERED: HEPARIN IV BOLUS 5,000 UNITS in SYRINGE 0 ML IV ONE ×2 (16:45→22:57)
[2019-03-29 23:17] LABS: Partial Thromboplastin Time 107.8 Seconds (21.0-31.0)
[2019-03-30] MEDS: HEPARIN SODIUM/DEXTROSE 25,000 UNITS/500 ML BAG IV SCH (05:58)
[2019-03-30] MEDS: LEVOTHYROXINE SODIUM 125 MCG TABLET PO SCH (06:00)
[2019-03-30 06:35] LABS: Basophils # (auto) 0.06 K/uL (0-0.2); Basophils % (auto) 0.5 %; Eosinophils # (auto) 0.43 K/uL (0-0.5); Eosinophils % (auto) 3.5 %; Hematocrit (blood only) 43.6 % (37-47); Hemoglobin 14.6 g/dL (12.0-16.0); Immature Granulocytes # (auto) 0.02 K/uL (0.00-0.02); Immature Granulocytes % (auto) 0.2 %; Lymphocytes # (auto) 1.98 K/uL (1.2-3.4); Lymphocytes % (auto) 15.9 %; Mean Corpuscular Hemoglobin 31.1 pg (25-34); Mean Corpuscular Hgb Conc 33.5 g/dL (32-36); Mean Corpuscular Volume 92.8 fL (80-100); Mean Platelet Volume 9.2 fL (7.4-10.4); Monocytes # (auto) 0.89 K/uL (0.11-0.59); Monocytes % (auto) 7.1 %; Neutrophils # (auto) 9.07 K/uL (1.4-6.5); Neutrophils % (auto) 72.8 %; Platelet Count 188 K/uL (130-400); RDW Coefficient of Variation 13.6 % (11.5-14.5); RDW Standard Deviation 46.2 fL (36.4-46.3); White Blood Count 12.45 K/uL (4.8-10.8)
[2019-03-30 06:58] LABS: Partial Thromboplastin Ratio 2.1
[2019-03-30 07:08] LABS: BUN Creatinine Ratio 12.9 (10-20); Calcium 9.2 mg/dl (8.5-10.1); Creatinine Clr Calc Pharmacy 56.5 ml/min; Est GFR (African American) 83.7; Est GFR (Non-African American) 72.2; Potassium 3.7 mmol/L (3.5-5.1)
[2019-03-30 07:12] LABS: Partial Thromboplastin Time 55.8 Seconds (21.0-31.0)
[2019-03-30] MEDS: IPRATROPIUM BROMIDE NASAL SPRAY 0.06% 15ML NAE SCH ×2 (08:10→20:35)
[2019-03-30] MEDS: CALCIUM 600MG + VIT D 400 IU TAB PO SCH (08:10)
[2019-03-30] MEDS: ASPIRIN 81 MG ECTAB PO SCH (08:10)
[2019-03-30] MEDS: CLOPIDOGREL BISULFATE 75 MG TAB PO SCH (08:11)
[2019-03-30] MEDS ORDERED: PANTOprazole 40 MG TAB PO SCH (09:00)
--- NOTE | 2019-03-30 09:50 | Hospitalist Progress Note ---
Date of Service March 30, 2019 Assessment & Plan (1) Bilateral pulmonary embolism: Unknown etiology at this point Family history of clots Previous tobacco abuser who quit in 1998 Previous breast cancer in 2007 with no treatment since that time No current malignancy that the patient is aware of No sedentary activity (golfs, goes to [employer] sneakers 3x a week) Hypercoagulable work-up is ordered -- will need follow up with PCP continue on heparin drip over the weekend, plan to d/c tomorrow morning convert to Xarelto tomorrow AM, d/c to home mid morning as long as she is stable BP is normal to even slightly elevated no signs of obstructive shock (2) DVT (deep venous thrombosis): right leg, cause of the PE no signs or symptoms of DVT (no swelling, no calf pain) heparin drip, Xarelto on d/c (3) Elevated troponin: secondary to strain from bilateral pulmonary emboli with small saddle embolism Echocardiogram shows signs of right heart strain, LV EF preserved, no regional WM abnormalities no current chest pain BP a little elevated today (4) Graves disease: Radioactive iodine treatment at [facility] 1991 and [address] Marks Continue levothyroxine (5) Breast cancer: Found incidentally with MRI scanning in [address] 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 Fenton patient had some symptoms of stroke. She underwent MRI of the brain which did not reveal any evidence of acute or chronic stroke She did have some micro-ischemic vascular changes and was placed on outpatient clopidogrel 75 mg p.o. daily Several months ago the patient started taking the clopidogrel 75 mg every other day and continues this regimen (7) Acid reflux: Continue home regimen of omeprazole (8) Sacroiliitis: We will treat PRN if patient has pain. No current pain at this time Follows with pain clinic Monitor Plan: keep on tele over the weekend with saddle embolism likely d/c to home on Sunday afternoon Subjective patient feeling great today, no chest pain or pressure, breathing easier taken off oxygen this morning no light headedness when standing/walking, no right leg pain or swelling appetite not great but she is eating most of her food, no nausea discussed plan for discharge tomorrow morning, stop heparin drip and start Xarelto tomorrow AM can go home tomorrow, she is pleased by this Review of Systems Review of Systems: All systems reviewed & are unremarkable except as noted in HPI & below Physical Exam Constitutional: WD/WN, vitals as above Eyes: PERRL, conjunctivae normal, anicteric sclerae ENMT: external ear and nose normal, oropharynx normal Neck: trachea midline, no thyromegaly Respiratory: normal respiratory effort, lungs clear to auscultation Cardiovascular: RRR, no murmur, no edema Gastrointestinal (Abdomen): normal bowel sounds, soft, nontender, no hepatosplenomegaly Musculoskeletal: no cyanosis or clubbing, extremities motor strength 5/5 Skin: no rashes, warm and dry Neurologic: patellar DTR's 2+ bilat, sensation intact and PERRL, EOMI, accommodation nl, no face palsy, no dysarthria Psychiatric: A+Ox3, euthymic affect Lymphatic: no cervical or axillary lymphadenopathy Results & Data Vital Signs (Past 12 Hours) Vital Signs Temp Pulse Pulse Resp BP Pulse Ox 03/30/19 07:32 36.3 C L 85 20 151/77 H 95 03/30/19 03:46 36.4 C L 80 19 138/75 93 03/29/19 23:31 36.7 C 82 18 122/75 97 Laboratory Results Laboratory Results - last 24 hr 03/29/19 03/29/19 03/29/19 09:30 15:27 22:22 WBC RBC Hgb Hct MCV MCH MCHC RDW Std Deviation RDW Coeff of Jean Plt Count MPV Immature Gran % (Auto) Neut % (Auto) Lymph % (Auto) [place] % (Auto) Eos % (Auto) Baso % (Auto) Immature Gran # (Auto) Neut # (Auto) Lymph # (Auto) [place] # (Auto) Eos # (Auto) Baso # (Auto) APTT 46.4 H* 39.9 H 107.8 H* PTT Ratio 1.7 1.5 4.0 Sodium Potassium Chloride Carbon Dioxide Anion Gap BUN Creatinine Est Cr Clr Drug Dosing Est GFR ( Amer) Est GFR (Non-Af Amer) BUN/Creatinine Ratio Glucose Calcium 03/30/19 03/30/19 03/30/19 06:17 06:17 06:17 WBC 12.45 H RBC 4.70 Hgb 14.6 Hct 43.6 MCV 92.8 MCH 31.1 MCHC 33.5 RDW Std Deviation 46.2 RDW Coeff of Jean 13.6 Plt Count 188 MPV 9.2 Immature Gran % (Auto) 0.2 Neut % (Auto) 72.8 Lymph % (Auto) 15.9 [place] % (Auto) 7.1 Eos % (Auto) 3.5 Baso % (Auto) 0.5 Immature Gran # (Auto) 0.02 Neut # (Auto) 9.07 H Lymph # (Auto) 1.98 [place] # (Auto) 0.89 H Eos # (Auto) 0.43 Baso # (Auto) 0.06 APTT 55.8 H* PTT Ratio 2.1 Sodium 139 Potassium 3.7 Chloride 106 Carbon Dioxide 28 Anion Gap 5.0 BUN 10 D Creatinine 0.79 Est Cr Clr Drug Dosing 56.5 Est GFR ( Amer) 83.7 Est GFR (Non-Af Amer) 72.2 BUN/Creatinine Ratio 12.9 Glucose 90 Calcium 9.2 Medications Administered Current Inpatient Medications Acetaminophen (Tylenol) 650 mg PO Q4H PRN PRN Reason: Pain or Fever Stop: 04/27/19 14:59 Aspirin (Ecotrin Ectab) 81 mg PO DAILY [facility] Stop: 04/27/19 14:59 Last Admin: 03/30/19 08:10 Dose: 81 mg Documented by: Clopidogrel Bisulfate (Plavix) 75 mg PO DAILY [facility] Stop: 04/27/19 14:59 Last Admin: 03/30/19 08:11 Dose: 75 mg Documented by: Ergocalciferol (Vitamin D2) 50,000 units PO Th@0900 [facility] Stop: 05/03/19 08:59 Heparin Sodium/Dextrose (Heparin Sodium/Dextrose) 25,000 units in 500 mls @ 27 mls/hr IV .[id number] [facility]; Protocol Stop: 04/27/19 10:29 Last Admin: 03/30/19 05:58 Dose: 1,250 units/hr, 25 mls/hr Documented by: Ioversol (Optiray 320 125ml) 119 ml IV ONCE PRN PRN Reason: Interaction Checking Stop: 04/01/19 10:02 Last Admin: 03/28/19 10:04 Dose: 119 ml Documented by: Ipratropium [place] (Atrovent Nasal [place] 0.06%) 2 sprays GEM BID [facility] Stop: 04/27/19 20:59 Last Admin: 03/30/19 08:10 Dose: 2 sprays Documented by: Levothyroxine Sodium (Synthroid) 125 mcg PO DAILYBB [facility] Stop: 04/27/19 14:59 Last Admin: 03/30/19 06:00 Dose: 125 mcg Documented by: Lidocaine (Lidoderm 5%) 1 patch TD DAILY PRN PRN Reason: pain Stop: 04/27/19 14:59 Miscellaneous (Order Awaiting Action) 1 ea N/A QS [facility] Stop: 04/27/19 15:59 Last Admin: 03/30/19 08:12 Dose: Not Given Documented by: Miscellaneous (Order Awaiting Action) 1 ea N/A QS [facility] Stop: 04/27/19 15:59 Last Admin: 03/30/19 08:12 Dose: Not Given Documented by: Miscellaneous (Remove Lidoderm Patch) 1 ea N/A DAILY@2100 [facility] Stop: 04/27/19 20:59 Last Admin: 03/29/19 21:24 Dose: Not Given Documented by: Multivitamins/Minerals (Caltrate Plus) 1 tab PO DAILY [facility] Stop: 04/28/19 08:59 Last Admin: 03/30/19 08:10 Dose: 1 tab Documented by: Ondansetron HCl (Zofran) 4 mg IV Q6H PRN PRN Reason: Nausea Stop: 04/27/19 14:59 Pantoprazole Sodium (Protonix) 40 mg PO Q2D@0900 [facility] Stop: 04/29/19 08:59 Last Admin: 03/30/19 08:11 Dose: 40 mg Documented by: Polyethylene Glycol (Miralax Powder Packet) 17 gm PO DAILY PRN PRN Reason: Constipation Stop: 04/27/19 14:59 Senna/Docusate Sodium (Senokot S) 1 tab PO BID PRN PRN Reason: Constipation Stop: 01/05/20 14:59 PG Care Time/CCT Total # of Minutes Spent Total Time Spent with Patient: Total time spent is greater than 50% in coordination of care (as documented) at patient's floor/unit and/or counseling patient:
[2019-03-31] MEDS: HEPARIN SODIUM/DEXTROSE 25,000 UNITS/500 ML BAG IV SCH (02:08)
[2019-03-31] MEDS: LEVOTHYROXINE SODIUM 125 MCG TABLET PO SCH (06:12)
[2019-03-31 06:49] LABS: Basophils # (auto) 0.03 K/uL (0-0.2); Basophils % (auto) 0.3 %; Eosinophils # (auto) 0.34 K/uL (0-0.5); Eosinophils % (auto) 3.9 %; Hematocrit (blood only) 43.8 % (37-47); Hemoglobin 14.5 g/dL (12.0-16.0); Immature Granulocytes # (auto) 0.03 K/uL (0.00-0.02); Immature Granulocytes % (auto) 0.3 %; Lymphocytes # (auto) 1.81 K/uL (1.2-3.4); Lymphocytes % (auto) 20.8 %; Mean Corpuscular Hemoglobin 30.3 pg (25-34); Mean Corpuscular Hgb Conc 33.1 g/dL (32-36); Mean Corpuscular Volume 91.6 fL (80-100); Mean Platelet Volume 9.3 fL (7.4-10.4); Monocytes # (auto) 0.54 K/uL (0.11-0.59); Monocytes % (auto) 6.2 %; Neutrophils # (auto) 5.95 K/uL (1.4-6.5); Neutrophils % (auto) 68.5 %; Platelet Count 196 K/uL (130-400); RDW Coefficient of Variation 13.7 % (11.5-14.5); RDW Standard Deviation 45.4 fL (36.4-46.3); Red Blood Count 4.78 M/uL (4.2-5.4)
[2019-03-31 07:15] LABS: Partial Thromboplastin Ratio 2.1
[2019-03-31 07:19] LABS: Partial Thromboplastin Time 55.8 Seconds (21.0-31.0)
[2019-03-31 07:30] LABS: BUN Creatinine Ratio 14.3 (10-20); Calcium 9.5 mg/dl (8.5-10.1); Creatinine Clr Calc Pharmacy 56.4 ml/min; Est GFR (African American) 83.7; Est GFR (Non-African American) 72.2
[2019-03-31] MEDS: IPRATROPIUM BROMIDE NASAL SPRAY 0.06% 15ML NAE SCH (07:48)
[2019-03-31] MEDS: CLOPIDOGREL BISULFATE 75 MG TAB PO SCH (07:49)
[2019-03-31] MEDS: ASPIRIN 81 MG ECTAB PO SCH (07:49)
[2019-03-31] MEDS: CALCIUM 600MG + VIT D 400 IU TAB PO SCH (07:49)
[2019-03-31] MEDS ORDERED: RIVAROXABAN 15 MG TAB PO SCH (09:00)
--- NOTE | 2019-03-31 10:04 | Discharge Summary ---
Date of Service March 31, 2019 Admission HPI Per Admitting Provider Attending: Dr. Kc Past medical history includes Graves' disease, breast cancer 2007, hyperlipidemia, sleep apnea on CPAP, hypothyroidism, GERD, microvascular ischemic disease on clopidogrel 75 mg every other day, prior tobacco abuse, obesity. Mrs. Young is a 78-year-old female who presented the emergency department with shortness of breath and was found to have saddle embolus with bilateral pulmonary emboli. Patient is hemodynamically stable and oxygenating well. She has some minimal EKG changes. CTA was positive for emboli and shows some early development of right heart strain. Patient states that she has no prior history of DVT, pulmonary embolus, or other thromboembolic disease. Patient does have a history of breast cancer 20 years ago. She is not on tamoxifen or any other agent at this time. Patient is on clopidogrel since 2011 after MRI showed minor foci of increased T2 signal within the white matter likely on a small vessel basis with no other evidence of acute or subacute infarction. Patient recently change frequency of the medication several months ago and currently is on 75 mg every other day. Patient denies any pleuritic pain, hemoptysis, lower extremity edema, lower extremity pain, significant dyspnea or shortness of breath. She has no diaphoresis or skin changes. She has no other acute complaints. Principal Diagnosis Bilateral pulmonary emboli with saddle embolism Discharge Exam Constitutional WD/WN, vitals as above Eyes PERRL, conjunctivae normal, anicteric sclerae ENMT external ear and nose normal, oropharynx normal Neck trachea midline, no thyromegaly Respiratory normal respiratory effort, lungs clear to auscultation Cardiovascular RRR, no murmur, no edema Gastrointestinal (Abdomen) normal bowel sounds, soft, nontender, no hepatosplenomegaly Musculoskeletal no cyanosis or clubbing, extremities motor strength 5/5 Skin no rashes, warm and dry Neurologic patellar DTR's 2+ bilat, sensation intact and PERRL, EOMI, accommodation nl, no face palsy, no dysarthria Psychiatric A+Ox3, euthymic affect Lymphatic no cervical or axillary lymphadenopathy Discharge Data Allergies Allergy/AdvReac Type Severity Reaction Status Date / Time ampicillin [From Principen] Allergy Unknown Verified 03/28/19 09:28 doxycycline Allergy Unknown UNKNOWN Verified 03/28/19 09:28 morphine Allergy Unknown RASH, Verified 03/28/19 09:28 DROPS BLOOD PRESSURE DRASTICALLY nystatin [From Mycostatin] Allergy Unknown Verified 03/28/19 09:28 Sulfa (Sulfonamide Allergy Unknown . Verified 03/28/19 09:28 Antibiotics) Consultations 03/28/19 10:47 ED Decision to Admit Stat 03/28/19 15:00 Consult Case Management - Discharge Planning Routine Ordered Studies 03/28/19 08:53 CT angio chest PE protocol Stat 03/28/19 10:29 US point of care ultrasound Stat 03/28/19 15:00 US venous doppler LE Stat Hospital Course (1) Bilateral pulmonary embolism: Unknown etiology at this point Family history of clots Previous tobacco abuser who quit in 1998 Previous breast cancer in 2007 with no treatment since that time No current malignancy that the patient is aware of No sedentary activity (golfs, goes to [employer] 3x a week) Hypercoagulable work-up is ordered -- will need follow up with PCP treated with heparin drip for 72 hours due to clot burden and presence of saddle embolism remained stable, BP normal, no chest pain, no dyspnea, no hypoxia converted to Xarelto 15mg BID for 21 days and then 20mg daily will need a minimum of 6 months of treatment but may require longer follow up with PCP, could consider referral to motor boss outpatient but no immediate needs (2) DVT (deep venous thrombosis): right leg, cause of the PE no signs or symptoms of DVT (no swelling, no calf pain) heparin drip, Xarelto on d/c (3) Elevated troponin: secondary to strain from bilateral pulmonary emboli with small saddle embolism Echocardiogram shows signs of right heart strain, LV EF preserved, no regional WM abnormalities no chest pain during admission BP a little elevated (4) Graves disease: Radioactive iodine treatment at [facility] 1991 and [address] Marks Continue levothyroxine (5) Breast cancer: Found incidentally with MRI scanning in [address] 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 Fenton patient had some symptoms of stroke. She underwent MRI of the brain which did not reveal any evidence of acute or chronic stroke She did have some micro-ischemic vascular changes and was placed on outpatient clopidogrel 75 mg p.o. daily Several months ago the patient started taking the clopidogrel 75 mg every other day and continues this regimen safe to continue Plavix every other day on Xarelto, explained that the Plavix offers anti-platelet protection (7) Acid reflux: Continue home regimen of omeprazole (8) Sacroiliitis: We will treat PRN if patient has pain. No current pain at this time Follows with pain clinic Monitor Total Time Total Time Spent Total Time Spent (In Minutes): 40 minutes Total Time Includes: Examination of the Patient, Discharge Planning, Medication Reconciliation and Communication With Other Providers (osha inspector, arranging outpatient follow up, checking cost of Xarelto) Discharge Plan Discharge Items Patient Disposition: Home - Self-Care Reason For Visit: SADDLE PE Discharge Diagnosis: Bilateral pulmonary emboli, saddle embolism Right leg DVT Condition on Discharge: Good Goals: continue anticoagulation therapy with Xarelto follow up on hypercoagulable work up with PCP Activity: Resume your previous activity Non-emergency contact: Primary Care Provider Call non-emergency contact if: you have any medication questions Follow-up/Referrals: Silverio Andrade III, MD [Primary Care Provider] - 04/04/19 1:45 pm (Please, follow up with Dr. Andrade on SundayApril 04 at 1:45 pm. *If you need to change this appointment, call the office at [phone].) Diet: Regular Addtl Attending Provider Instructions: Medications: - XARELTO: 15mg twice a day for 21 days and then 20mg daily - ASPIRIN: stop this medication as there is no role for aspirin, Plavix and Xarelto Acute pulmonary emboli, right leg DVT treated for three days with heparin drip, stable for the past two days, off oxygen, stable for d/c started on Xarelto this morning d/c on Xarelto 15mg twice a day for 21 days then 20mg daily will need treatment for at least 6 months, likely longer follow up with coagulation clinic on 04/03 as scheduled, will need appt with Dr. Andrade later this week Pending Studies at Discharge: Yes Studies:: hypercoagulable studies Stand-Alone Forms: My [facility], Smoking Cessation Medications and DC Order Prescriptions: New Xarelto 15 mg Tablet 15 mg PO BID 21 Days Qty: 42 RF: 0 Xarelto 20 mg tablet 20 mg PO DAILY Qty: 30 RF: 3 Continued sennosides-docusate sodium [Senokot-S] 8.6-50 mg tablet 1 tab PO BID PRN (Reason: Constipation) RF: 0 lidocaine 5 % adhesive patch,medicated 1 patch topical DAILY PRN (Reason: pain) Qty: 90 RF: 1 ergocalciferol (vitamin D2) 50,000 unit capsule 50,000 units PO WEEKLY Qty: 14 RF: 3 levothyroxine 125 mcg tablet 125 mcg PO DAILY Qty: 90 RF: 3 clopidogrel 75 mg tablet 75 mg PO DAILY RF: 0 calcium carbonate-vitamin D3 600 mg calcium- 200 unit capsule 1 cap PO DAILY RF: 0 omeprazole 20 mg capsule,delayed release(DR/EC) 20 mg PO Q2D Qty: 30 RF: 0 ipratropium bromide 42 mcg (0.06 %) spray,non-aerosol 2 sprays INTNAS BID RF: 0 clotrimazole-betamethasone 1-0.05 % cream 1 appln topical UD Qty: 1 RF: 0 fluocinonide 0.05 % gel 1 appln topical UD Qty: 1 RF: 0 Discontinued aspirin [Aspir-81] 81 mg Tablet,Delayed Release (Dr/Ec) 81 mg PO DAILY RF: 0 Discharge Orders: Discharge Order (Routine); Ordered 03/31/19 Ordered By: Boy Camara Admission Data Admit Date/Time: 03/28/19 14:57 Attending Provider: Boy Camara Admit Provider: Lew Rivera Primary Care Provider: Silverio Andrade III Other Providers: Lew Rivera Other Interventions: Discharge Summary Assessment (RN) Last Done: 03/31/19 09:40 DC Date/Time DO NOT enter until pt leaves facility: 03/31/19 10:30
--- NOTE | 2019-03-31 10:46 | XCELERA ---
[id number] \\[email or web address]_[email or web address]\[id number]
[2019-04-03] MEDS ORDERED: ERGOCALCIFEROL 50,000 UNITS CAP PO SCH (09:00)
[2019-04-03 20:45] LABS: Anti Cardiolipin Ab IgG <14 GPL; Anti Cardiolipin Ab IgM <12 MPL; Anti-Cardiolipin Ab IgA <11 APL; Anti-Thrombin III Activity 115 % activity (80-120); B2 Glycoprotein IgA <9 SAU (<=20); B2 Glycoprotein IgG <9 SGU (<=20); B2 Glycoprotein IgM <9 SMU (<=20); Protein S Functional(Activity) 75 % (60-140)
[2019-04-04 08:12] LABS: PTT LA Screen 36
== END 2019-03-31 10:30 | disposition home or self-care (01) | DRG 176 ==
LOC: ED 08:28 → 2S 14:00 → SUATTDRO 14:57 → 2S 14:57

== ENCOUNTER 2019-10-29 23:03 | Observation (INO) ==
[2019-10-29] MEDS ORDERED: SODIUM CHLORIDE 0.9% 1000ML 1,000 ML IV SCH (23:45)
[2019-10-30 00:11] LABS: Basophils # (auto) 0.04 K/uL (0-0.2); Basophils % (auto) 0.5 %; Eosinophils # (auto) 0.29 K/uL (0-0.5); Eosinophils % (auto) 3.7 %; Hematocrit (blood only) 44.1 % (37-47); Hemoglobin 14.7 g/dL (12.0-16.0); Immature Granulocytes # (auto) 0.03 K/uL (0.00-0.02); Immature Granulocytes % (auto) 0.4 %; Lymphocytes # (auto) 1.74 K/uL (1.2-3.4); Lymphocytes % (auto) 22.1 %; Mean Corpuscular Hemoglobin 30.1 pg (25-34); Mean Corpuscular Hgb Conc 33.3 g/dL (32-36); Mean Corpuscular Volume 90.4 fL (80-100); Monocytes # (auto) 0.59 K/uL (0.11-0.59); Monocytes % (auto) 7.5 %; Neutrophils # (auto) 5.17 K/uL (1.4-6.5); Neutrophils % (auto) 65.8 %; Platelet Count 251 K/uL (130-400); Red Blood Count 4.88 M/uL (4.2-5.4); White Blood Count 7.86 K/uL (4.8-10.8)
[2019-10-30 00:25] LABS: INR 1.1 (0.9-1.1); Prothrombin Time 11.2 Seconds (9.0-12.0)
[2019-10-30 00:28] LABS: Alanine Aminotransferase 23 U/L (12-78); Albumin Level 3.3 gm/dl (3.4-5.0); Aspartate Aminotransferase 13 U/L (15-37); BUN Creatinine Ratio 9.3 (10-20); Blood Urea Nitrogen 9 mg/dl (7-18); Calcium 8.5 mg/dl (8.5-10.1); Carbon Dioxide 24 mmol/L (21-32); Chloride 108 mmol/L (98-107); Creatinine Clr Calc Pharmacy 49.9 ml/min; Est GFR (African American) 63.7; Glucose 160 mg/dl (70-99); Magnesium 2.1 mg/dl (1.8-2.4); Potassium 3.5 mmol/L (3.5-5.1); Sodium 139 mmol/L (136-145)
[2019-10-30 00:38] LABS: Alkaline Phosphatase 100 U/L (45-117); Bilirubin,Total 0.4 mg/dl (0.2-1); Globulin 3.3 gm/dl (2.5-4.0); Total Protein 6.6 gm/dl (6.4-8.2); Troponin I < 0.015 ng/ml (0-0.045)
[2019-10-30] MEDS ORDERED: OPTIRAY 320 125ml IV PRN (01:31)
[2019-10-30 01:52] LABS: Appearance Urine Clear (Clear); Bilirubin Urine Negative (Negative); Blood Urine Negative (Negative); Color Urine Yellow; Glucose Urine UA Negative (Negative); Ketones Urine Negative (Negative); Leukocyte Esterase Urine Negative (Negative); Nitrite Urine Negative (Negative); Protein Urine Negative (Negative); Specific Gravity Urine 1.018 (1.000-1.030); Urobilinogen Urine Negative (Negative); pH Urine 5.5 (4.5-7.5)
--- NOTE | 2019-10-30 02:20 | Emergency Department Note ---
Impression & Plan Syncope, Lower abdominal pain ED Provider Note NAME: QUENTIN LOPEZ AGE: 78 SEX: F ARRIVES VIA: Ambulance INFORMANT: [Patient] ED PROVIDER(S): Michael Maxwell MD CHIEF COMPLAINT: Altered mental status PLAN: Disposition: Admitted Condition: [Good] MEDICAL DECISION MAKING: Patient presented with an unprovoked syncopal episode and altered mental status. She had a nonfocal examination on presentation. ECG was normal. The patient had an unremarkable CBC and chemistry panel. CT imaging of her head, chest and abdomen/pelvis were performed. No acute intracranial process was noted CT scan of the abdomen and pelvis revealed chronic findings without acute process. CT angiogram of the chest did not reveal any evidence of acute pulmonary embolism. The patient was observed and reassessed. She was feeling better. There is no evidence of dysrhythmia noted here however that is a significant concern given the episode. I discussed further management in the hospital and the patient and were in agreement. I discussed the case with Dr. Rivero of the hospital service. She agreed the history was concerning and evaluated the patient for further management and the ER. Triage Nursing notes reviewed and agree them. [Additional history obtained from] patient's Vital Signs: reviewed and remarkable for [no significant abnormalities] Differential diagnosis: Vasovagal event, dehydration, infection, hypoglycemia, electrolyte abnormalities, cardiac sources, intracerebral event, pulmonary embolism, seizure, toxicologic, neurologic, as well as other pathologies. ER treatment provided: Saline hydration Diagnostics interpreted by me: ECG: Rate: 92 Rhythm:Normal sinus [place]:Normal QRS:Normal ST segements:No elevation or depression Other:No PACs or PVCs Cardiac Monitoring: Cardiac monitoring ordered by me: The patient was placed on continuous cardiac monitoring and observed. It revealed a normal sinus rhythm at 88 beats per minute without ectopy or evidence of dysrhythmia. Laboratory studies: [See below] unremarkable CBC and chemistry panel. Imaging studies: [See below] CT scans as above. Consultation(s): [facility] service HPI: The patient is a 78 year old female who presents to the Emergency Room with complaints of syncopal episode and altered mental status. This started abruptly this evening, while sitting and is now resolved. The patient also notes the following associated symptoms, confusion after the episode. The patient has been given no medication for relieving factors. Current pain is rated as 0/10. noted no trauma from the event. Patient reportedly was doing well today. She went golfing without problems. She does have a history of syncope with saddle pulmonary embolism. She is on anticoagulation. Pt denies headache, fevers, chills, diaphoresis, visual changes, neck pain, chest pain, breathing difficulties, nausea, vomiting, abdominal pain, back pain, melena, hematochezia, urinary symptoms, numbness, weakness, lymphadenopathy, rash, or other complaints. ROS: See above HPI for pertinent positives & negatives. A total of [10] systems reviewed and were otherwise negative. PAST MEDICAL HISTORY:[See Below] pulmonary embolism, anticoagulated PAST SURGICAL HISTORY:[See Below] FAMILY HISTORY:[See Below] SOCIAL HISTORY:[See Below] HOME MEDICATIONS:[See Below] ALLERGIES:[See Below] VITALS:[See Below] PHYSICAL EXAMINATION: GENERAL: Awake, tired-appearing, in no distress HENT: Normocephalic, atraumatic. Oropharynx unremarkable. EYES: Normal conjunctiva. Sclera non-icteric. NECK: Inspection normal. Non-tender. Supple. No nuchal rigidity. FROM. No masses. RESPIRATORY: Clear to auscultation. No wheezes. No rales. Normal respiratory effort. CARDIAC: Normal rate. Normal rhythm. No murmurs. No rubs. Extremities warm and well perfused. Pulses equal. No JVD. GI: Soft, non-distended. No tenderness to palpation. No rebound or guarding. No masses. RECTAL: Deferred. MUSCULOSKELETAL: Atraumatic. Chest examination reveals no tenderness. The back is symmetrical on inspection without obvious abnormality. There is no CVA tenderness to palpation. No joint edema. LOWER EXTREMITIES: Calves are equal size bilaterally and non-tender. No edema. No discoloration. NEURO: Normal sensorium. No sensory or motor deficits noted. SKIN: No rash or jaundice noted. 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 Beliefs That Will Affect Care: None marital status: Current Living Situation: Spouse current occupational status: retired Feels Safe at Home: Yes Smoking Status: Former smoker Tobacco Type: cigarettes ; Age Started Using Tobacco: 17 ; Age Quit Using Tobacco: 69 ; packs per day: 1 ; Cigarettes Per Day: 20 ; Number of Years Since Quit: 20 ; Second Hand Exposure: No ; Hx Alcohol Use: No Hx Substance Use: No Childhood Exposure to Second-Hand Smoke: Yes Dental Care, Regularly: Yes Physical Activity Frequency: 3-4 Times per Week Physical Activity Frequency Comment: weight lifting, aerobics 45minutes Seatbelt Use: always Sunscreen Use: Yes Allergies Allergies Allergy/AdvReac Type Severity Reaction Status Date / Time ampicillin [From Principen] Allergy Unknown Unknown Verified 10/30/19 01:33 doxycycline Allergy Unknown UNKNOWN Verified 10/30/19 01:33 morphine Allergy Unknown RASH, Verified 10/30/19 01:33 DROPS BLOOD PRESSURE DRASTICALLY nystatin [From Mycostatin] Allergy Unknown Unknown Verified 10/30/19 01:33 Sulfa (Sulfonamide Allergy Unknown . Verified 10/30/19 01:33 Antibiotics) Home Meds Home Medications Medication Instructions Recorded Confirmed sennosides 8.6 mg-docusate sodium 1 tab PO BID PRN 03/20/18 10/30/19 50 mg tablet calcium carbonate-vitamin D3 600 2 cap PO DAILY cap 12/25/18 10/30/19 mg calcium-200 unit capsule clotrimazole-betamethasone 1 1 appln TOPICAL UD #1 gm 12/25/18 10/30/19 %-0.05 % topical cream fluocinonide 0.05 % topical gel 1 appln TOPICAL UD #1 gm 12/25/18 10/30/19 acetaminophen [Tylenol Extra 500 - 1,000 mg PO Q6H PRN 10/30/19 10/30/19 Strength] aspirin [Aspirin Low Dose] 81 mg PO DAILY 10/30/19 10/30/19 metronidazole 1 applic TOPICAL DAILY 10/30/19 10/30/19 Previous Rx's Medication Instructions Recorded lidocaine 5 % topical patch 1 patch TOPICAL DAILY PRN #90 ea 01/06/19 ergocalciferol (vitamin D2) 1,250 50,000 units PO WEEKLY #14 cap 01/28/19 mcg (50,000 unit) capsule levothyroxine 125 mcg tablet 125 mcg PO DAILY #90 tab 01/28/19 omeprazole 20 mg capsule,delayed 20 mg PO Q2D #60 cap 05/08/19 release clopidogrel 75 mg tablet 75 mg PO Q2D #90 tab 08/11/19 rivaroxaban 20 mg tablet 20 mg PO DAILY #30 tab 09/05/19 Results & Data (ED) Vital Signs Vital Signs - 24 hr 10/29/19 23:33 10/29/19 23:37 10/29/19 23:50 Temperature 36.8 C Temperature Source Oral Pulse Rate 95 H Pulse Rate [Apical] Pulse Rhythm Regular Pulse Rhythm [Apical] Pulse Strength Normal Pulse Strength [Apical] Respiratory Rate 16 Respiratory Effort / Characteristics Non-Labored Spontaneous Respiratory Depth Normal Respiratory Pattern Regular Blood Pressure 140/70 Blood Pressure [Left Arm] Blood Pressure Mean 93 Blood Pressure Mean [Left Arm] Blood Pressure Position [Left Arm] Pulse Oximetry 92 89 L 96 Oxygen Delivery Method Room Air Room Air Nasal Cannula Oxygen Flow Rate 2 2 Sepsis Recent Fever Within 48 Hours No Sepsis Action Taken by Nursing No Action Required 10/30/19 00:09 10/30/19 01:20 10/30/19 01:45 Temperature Temperature Source Pulse Rate 87 Pulse Rate [Apical] 95 H 89 Pulse Rhythm Pulse Rhythm [Apical] Regular Regular Pulse Strength Pulse Strength [Apical] Normal Normal Respiratory Rate 18 18 16 Respiratory Effort / Characteristics Non-Labored Spontaneous Non-Labored Spontaneous Respiratory Depth Normal Normal Respiratory Pattern Regular Regular Blood Pressure 124/66 Blood Pressure [Left Arm] 152/71 H Blood Pressure Mean 85 Blood Pressure Mean [Left Arm] 98 Blood Pressure Position [Left Arm] Lying Pulse Oximetry 96 96 96 Oxygen Delivery Method Nasal Cannula Nasal Cannula Room Air Oxygen Flow Rate 2 2 Sepsis Recent Fever Within 48 Hours Sepsis Action Taken by Nursing Laboratory Data Result diagrams: 10/29/19 23:55 10/29/19 23:55 Lab Results 10/29/19 10/29/19 10/29/19 Range/Units 23:55 23:55 23:55 WBC 7.86 (4.8-10.8) K/uL RBC 4.88 (4.2-5.4) M/uL Hgb 14.7 (12.0-16.0) g/dL Hct 44.1 (37-47) % MCV 90.4 (80-100) fL MCH 30.1 (25-34) pg MCHC 33.3 (32-36) g/dL RDW Std Deviation 46.0 (36.4-46.3) fL RDW Coeff of Jean 14.0 (11.5-14.5) % Plt Count 251 (130-400) K/uL MPV 9.0 (7.4-10.4) fL Immature Gran % (Auto) 0.4 % Neut % (Auto) 65.8 % Lymph % (Auto) 22.1 % [place]ountain % (Auto) 7.5 % Eos % (Auto) 3.7 % Baso % (Auto) 0.5 % Neut # (Auto) 5.17 (1.4-6.5) K/uL Lymph # (Auto) 1.74 (1.2-3.4) K/uL Fountain # (Auto) 0.59 (0.11-0.59) K/uL Eos # (Auto) 0.29 (0-0.5) K/uL Baso # (Auto) 0.04 (0-0.2) K/uL Immature Gran # (Auto) 0.03 H (0.00-0.02) K/uL PT 11.2 (9.0-12.0) Seconds INR 1.1 (0.9-1.1) Sodium 139 (136-145) mmol/L Potassium 3.5 (3.5-5.1) mmol/L Chloride 108 H (98-107) mmol/L Carbon Dioxide 24 (21-32) mmol/L Anion Gap 7.0 (3-11) BUN 9 (7-18) mg/dl Creatinine 0.99 (0.6-1.2) mg/dl Est Cr Clr Drug Dosing 49.9 ml/min Est GFR ( Amer) 63.7 Est GFR (Non-Af Amer) 55.0 BUN/Creatinine Ratio 9.3 L (10-20) Glucose 160 H (70-99) mg/dl Calcium 8.5 (8.5-10.1) mg/dl Magnesium 2.1 (1.8-2.4) mg/dl Total Bilirubin 0.4 (0.2-1) mg/dl AST 13 L (15-37) U/L ALT 23 (12-78) U/L Alkaline Phosphatase 100 (45-117) U/L Troponin I < 0.015 (0-0.045) ng/ml Total Protein 6.6 (6.4-8.2) gm/dl Albumin 3.3 L (3.4-5.0) gm/dl Globulin 3.3 (2.5-4.0) gm/dl Albumin/Globulin Ratio 1.0 (0.9-2) TSH 3.590 (0.300-4.500) uIu/ml Urine Color Urine Appearance (Clear) Urine pH (4.5-7.5) Ur Specific Marine (1.000-1.030) Urine Protein (Negative) Urine Glucose (UA) (Negative) Urine Ketones (Negative) Urine Blood (Negative) Urine Nitrite (Negative) Urine Bilirubin (Negative) Urine Urobilinogen (Negative) Ur Leukocyte Esterase (Negative) 10/30/19 Range/Units 01:35 WBC (4.8-10.8) K/uL RBC (4.2-5.4) M/uL Hgb (12.0-16.0) g/dL Hct (37-47) % MCV (80-100) fL MCH (25-34) pg MCHC (32-36) g/dL RDW Std Deviation (36.4-46.3) fL RDW Coeff of Jean (11.5-14.5) % Plt Count (130-400) K/uL MPV (7.4-10.4) fL Immature Gran % (Auto) % Neut % (Auto) % Lymph % (Auto) % [place] % (Auto) % Eos % (Auto) % Baso % (Auto) % Neut # (Auto) (1.4-6.5) K/uL Lymph # (Auto) (1.2-3.4) K/uL [place] # (Auto) (0.11-0.59) K/uL Eos # (Auto) (0-0.5) K/uL Baso # (Auto) (0-0.2) K/uL Immature Gran # (Auto) (0.00-0.02) K/uL PT (9.0-12.0) Seconds INR (0.9-1.1) Sodium (136-145) mmol/L Potassium (3.5-5.1) mmol/L Chloride (98-107) mmol/L Carbon Dioxide (21-32) mmol/L Anion Gap (3-11) BUN (7-18) mg/dl Creatinine (0.6-1.2) mg/dl Est Cr Clr Drug Dosing ml/min Est GFR ( Amer) Est GFR (Non-Af Amer) BUN/Creatinine Ratio (10-20) Glucose (70-99) mg/dl Calcium (8.5-10.1) mg/dl Magnesium (1.8-2.4) mg/dl Total Bilirubin (0.2-1) mg/dl AST (15-37) U/L ALT (12-78) U/L Alkaline Phosphatase (45-117) U/L Troponin I (0-0.045) ng/ml Total Protein (6.4-8.2) gm/dl Albumin (3.4-5.0) gm/dl Globulin (2.5-4.0) gm/dl Albumin/Globulin Ratio (0.9-2) TSH (0.300-4.500) uIu/ml Urine Color Yellow Urine Appearance Clear (Clear) Urine pH 5.5 (4.5-7.5) Ur Specific Marine 1.018 (1.000-1.030) Urine Protein Negative (Negative) Urine Glucose (UA) Negative (Negative) Urine Ketones Negative (Negative) Urine Blood Negative (Negative) Urine Nitrite Negative (Negative) Urine Bilirubin Negative (Negative) Urine Urobilinogen Negative (Negative) Ur Leukocyte Esterase Negative (Negative) Administered Medications Sodium Chloride (Nss 1000ml) 1,000 mls @ 125 mls/hr IV .Q8H OLMAN Stop: 10/30/19 07:44 Last Admin: 10/30/19 00:16 Dose: 125 mls/hr Documented by: [id number] Ioversol (Optiray 320 125ml) 125 ml IV ONCE PRN PRN Reason: Interaction Checking Stop: 11/03/19 01:30 Last Admin: 10/30/19 01:31 Dose: 116 ml Documented by: [id number] Discharge Plan Visit Data Chief Complaint: Altered Mental Status Stated Complaint: ALTERED MENTAL STATUS ED Provider: Michael Maxwell Discharge Problem: Syncope, Lower abdominal pain Forms Stand Alone Forms: My [facility] Sviral Prescriptions Prescriptions: No Action sennosides-docusate sodium [Senokot-S] 8.6-50 mg tablet 1 tab PO BID PRN (Reason: Constipation) RF: 0 lidocaine 5 % adhesive patch,medicated 1 patch topical DAILY PRN (Reason: pain) Qty: 90 RF: 1 ergocalciferol (vitamin D2) 50,000 unit capsule 50,000 units PO WEEKLY Qty: 14 RF: 3 levothyroxine 125 mcg tablet 125 mcg PO DAILY Qty: 90 RF: 3 omeprazole 20 mg capsule,delayed release(DR/EC) 20 mg PO Q2D Qty: 60 RF: 5 clopidogrel 75 mg tablet 75 mg PO Q2D Qty: 90 RF: 3 Xarelto 20 mg tablet 20 mg PO DAILY Qty: 30 RF: 5 calcium carbonate-vitamin D3 600 mg calcium- 200 unit capsule 2 cap PO DAILY RF: 0 clotrimazole-betamethasone 1-0.05 % cream 1 appln topical UD Qty: 1 RF: 0 fluocinonide 0.05 % gel 1 appln topical UD Qty: 1 RF: 0 aspirin [Aspirin Low Dose] 81 mg Tablet,Delayed Release (Dr/Ec) 81 mg PO DAILY RF: 0 acetaminophen [Tylenol Extra Strength] 500 mg Tablet 500 - 1,000 mg PO Q6H PRN (Reason: Pain) RF: 0 metronidazole 0.75 % Gel 1 applic TOPICAL DAILY RF: 0
--- NOTE | 2019-10-30 03:13 | History & Physical Report ---
Date of Service October 30, 2019 Assessment & Plan (1) Syncope: Patient with episode of syncope with prolonged down time of 15-20 minutes, no prodrome to suggest vasovagal or orthostatic etiology. No reported seizure activity. ?Cardiogenic etiology -Observation to medical floor with telemetry. -Check orthostatic VS Present on Admission?: Yes (2) Bilateral pulmonary embolism: In March 2019, etiology unclear. Repeat imaging performed in ER with no acute PE or increased clot burden -Continue Xarelto Present on Admission?: Yes (3) Graves disease: S/p radioactive [place] [facility] [place] TSH within normal limits -Continue Synthroid Present on Admission?: Yes (4) Acid reflux: Chronic. Stable -Continue Omeprazole Present on Admission?: Yes (5) Breast cancer: Found incidentally with MRI scanning in [address] Treviño of the right breast September 2007 Grade 3 infiltrating ductal carcinoma 0/2 SLN; ER 95%; SD 100%; HER-2 positive; positive LVI Chemotherapy completed in follow-up 2007 and radiation completed March 2008 Aromasin 04/23/2008 through 09/12/2012 Present on Admission?: Yes (6) History of TIA (transient ischemic attack): No acute deficits. CT head WNL -Continue Plavix 75mg po qod for microvascular ischemic changes F/E/N - Heplock. Electrolytes WNL. Regular diet as tolerated Ppx - On Xarelto Code - Full Dispo - Observation Present on Admission?: Yes Admission and Anticipated Discharge Date Admission Date: 10/30/19 Anticipated date of discharge: 10/31/19 History of Present Illness Chief Complaint: Syncope Primary Care Provider: Silverio Andrade MD Lali Young is a pleasant 78yo C female presenting with syncope. She was at home this evening with her when she suddenly became unconscious. Pat oumar has no recollection of the event. She states that she was watching TV one minute then woke up in the hospital. She denies CP/palpitations/dizziness/sweating/SOB/numbness/tingling/weakness/headache preceding or following the event. No head trauma. No evidence of tongue biting, no incontinence or seizure like activity reported. No post-ictal state. Patient estimated down time 15-20 minutes (EMS brought her from [facility]). Mrs. Young was admitted to [facility] in March 2019 with a saddle PE. She was managed with IV heparin and transitioned to Xarelto. She denies RLE pain/swelling, no cough/SOB/CP. No additional complaints at this time. ER Course: NSS Allergies Allergy/AdvReac Type Severity Reaction Status Date / Time ampicillin [From Principen] Allergy Unknown Unknown Verified 10/30/19 01:33 doxycycline Allergy Unknown UNKNOWN Verified 10/30/19 01:33 morphine Allergy Unknown RASH, Verified 10/30/19 01:33 DROPS BLOOD PRESSURE DRASTICALLY nystatin [From Mycostatin] Allergy Unknown Unknown Verified 10/30/19 01:33 Sulfa (Sulfonamide Allergy Unknown . Verified 10/30/19 01:33 Antibiotics) Home Medications Home Medications Medication Instructions Recorded Confirmed Type sennosides 8.6 mg-docusate sodium 1 tab PO BID PRN 03/20/18 10/30/19 History 50 mg tablet calcium carbonate-vitamin D3 600 2 cap PO DAILY cap 12/25/18 10/30/19 History mg calcium-200 unit capsule clotrimazole-betamethasone 1 1 appln TOPICAL UD #1 gm 12/25/18 10/30/19 History %-0.05 % topical cream fluocinonide 0.05 % topical gel 1 appln TOPICAL UD #1 gm 12/25/18 10/30/19 History lidocaine 5 % topical patch 1 patch TOPICAL DAILY PRN #90 ea 01/06/19 10/30/19 Rx ergocalciferol (vitamin D2) 1,250 50,000 units PO WEEKLY #14 cap 01/28/19 10/30/19 Rx mcg (50,000 unit) capsule levothyroxine 125 mcg tablet 125 mcg PO DAILY #90 tab 01/28/19 10/30/19 Rx omeprazole 20 mg capsule,delayed 20 mg PO Q2D #60 cap 05/08/19 10/30/19 Rx release clopidogrel 75 mg tablet 75 mg PO Q2D #90 tab 08/11/19 10/30/19 Rx rivaroxaban 20 mg tablet 20 mg PO DAILY #30 tab 09/05/19 10/30/19 Rx acetaminophen [Tylenol Extra 500 - 1,000 mg PO Q6H PRN 10/30/19 10/30/19 History Strength] aspirin [Aspirin Low Dose] 81 mg PO DAILY 10/30/19 10/30/19 History metronidazole 1 applic TOPICAL DAILY 10/30/19 10/30/19 History Past Med/Surg History Social History Preferred Language: Georgian Communication Ability: Effective Visual Impairment: Limited Hearing Ability: Normal [employer] Required: No Beliefs That Will Affect Care: None marital status: Current Living Situation: Spouse current occupational status: retired Feels Safe at Home: Yes Smoking Status: Former smoker Tobacco Type: cigarettes ; Age Started Using Tobacco: 17 ; Age Quit Using Tobacco: 69 ; packs per day: 1 ; Cigarettes Per Day: 20 ; Number of Years Since Quit: 20 ; Second Hand Exposure: No ; Hx Alcohol Use: No Hx Substance Use: No Childhood Exposure to Second-Hand Smoke: Yes Dental Care, Regularly: Yes Physical Activity Frequency: 3-4 Times per Week Physical Activity Frequency Comment: weight lifting, aerobics 45minutes Seatbelt Use: always Sunscreen Use: Yes Review of Systems Review of Systems: All systems reviewed & are unremarkable except as noted in HPI & below Physical Exam Physical Exam: General: patient resting comfortably, NAD, non-toxic in appearance, AA&O x 4 Skin: warm, dry, intact, no rashes or lesions HEENT: NC/AT, PERRL, EOMI, anicteric sclera, conjunctiva without injection, external ear normal to inspection and nontender, nares patent, moist mucus membranes, dentition intact, no oropharyngeal lesions, neck supple, trachea midline, no LAD, no thyromegaly, no JVD Heart: +S1/S2, regular, no m/r/g Lungs: equal air entry bilaterally, no rales/rhonchi/wheezes Abd: +BS, soft, NT/ND, no masses/organomegaly/ascites Ext: warm, 2+ pulses in UE/LE bilaterally, no clubbing/cyanosis or edema Neuro: nonfocal, patient AA&O x 4, speech intact, no facial droop, moving all extremities on command with equal strength 5/5 Results & Data Results & Data ([facility]) Vital Signs (Past 12 Hours) Vital Signs Temp Pulse Pulse Resp BP BP Pulse Ox 10/30/19 02:43 87 18 131/56 L 95 10/30/19 01:45 87 16 124/66 96 10/30/19 01:20 89 18 152/71 H 96 10/30/19 00:09 95 H 18 96 10/29/19 23:50 96 10/29/19 23:37 89 L 10/29/19 23:33 36.8 C 95 H 16 140/70 92 Laboratory Results Lab Results 10/29/19 10/29/19 10/29/19 Range/Units 23:55 23:55 23:55 WBC 7.86 (4.8-10.8) K/uL RBC 4.88 (4.2-5.4) M/uL Hgb 14.7 (12.0-16.0) g/dL Hct 44.1 (37-47) % MCV 90.4 (80-100) fL MCH 30.1 (25-34) pg MCHC 33.3 (32-36) g/dL RDW Std Deviation 46.0 (36.4-46.3) fL RDW Coeff of Jean 14.0 (11.5-14.5) % Plt Count 251 (130-400) K/uL MPV 9.0 (7.4-10.4) fL Immature Gran % (Auto) 0.4 % Neut % (Auto) 65.8 % Lymph % (Auto) 22.1 % Elmore % (Auto) 7.5 % Eos % (Auto) 3.7 % Baso % (Auto) 0.5 % Neut # (Auto) 5.17 (1.4-6.5) K/uL Lymph # (Auto) 1.74 (1.2-3.4) K/uL Elmore # (Auto) 0.59 (0.11-0.59) K/uL Eos # (Auto) 0.29 (0-0.5) K/uL Baso # (Auto) 0.04 (0-0.2) K/uL Immature Gran # (Auto) 0.03 H (0.00-0.02) K/uL PT 11.2 (9.0-12.0) Seconds INR 1.1 (0.9-1.1) Sodium 139 (136-145) mmol/L Potassium 3.5 (3.5-5.1) mmol/L Chloride 108 H (98-107) mmol/L Carbon Dioxide 24 (21-32) mmol/L Anion Gap 7.0 (3-11) BUN 9 (7-18) mg/dl Creatinine 0.99 (0.6-1.2) mg/dl Est Cr Clr Drug Dosing 49.9 ml/min Est GFR ( Amer) 63.7 Est GFR (Non-Af Amer) 55.0 BUN/Creatinine Ratio 9.3 L (10-20) Glucose 160 H (70-99) mg/dl Calcium 8.5 (8.5-10.1) mg/dl Magnesium 2.1 (1.8-2.4) mg/dl Total Bilirubin 0.4 (0.2-1) mg/dl AST 13 L (15-37) U/L ALT 23 (12-78) U/L Alkaline Phosphatase 100 (45-117) U/L Troponin I < 0.015 (0-0.045) ng/ml Total Protein 6.6 (6.4-8.2) gm/dl Albumin 3.3 L (3.4-5.0) gm/dl Globulin 3.3 (2.5-4.0) gm/dl Albumin/Globulin Ratio 1.0 (0.9-2) TSH 3.590 (0.300-4.500) uIu/ml Urine Color Urine Appearance (Clear) Urine pH (4.5-7.5) Ur Specific [place] (1.000-1.030) Urine Protein (Negative) Urine Glucose (UA) (Negative) Urine Ketones (Negative) Urine Blood (Negative) Urine Nitrite (Negative) Urine Bilirubin (Negative) Urine Urobilinogen (Negative) Ur Leukocyte Esterase (Negative) 10/30/19 Range/Units 01:35 WBC (4.8-10.8) K/uL RBC (4.2-5.4) M/uL Hgb (12.0-16.0) g/dL Hct (37-47) % MCV (80-100) fL MCH (25-34) pg MCHC (32-36) g/dL RDW Std Deviation (36.4-46.3) fL RDW Coeff of Jean (11.5-14.5) % Plt Count (130-400) K/uL MPV (7.4-10.4) fL Immature Gran % (Auto) % Neut % (Auto) % Lymph % (Auto) % Elmore % (Auto) % Eos % (Auto) % Baso % (Auto) % Neut # (Auto) (1.4-6.5) K/uL Lymph # (Auto) (1.2-3.4) K/uL Elmore # (Auto) (0.11-0.59) K/uL Eos # (Auto) (0-0.5) K/uL Baso # (Auto) (0-0.2) K/uL Immature Gran # (Auto) (0.00-0.02) K/uL PT (9.0-12.0) Seconds INR (0.9-1.1) Sodium (136-145) mmol/L Potassium (3.5-5.1) mmol/L Chloride (98-107) mmol/L Carbon Dioxide (21-32) mmol/L Anion Gap (3-11) BUN (7-18) mg/dl Creatinine (0.6-1.2) mg/dl Est Cr Clr Drug Dosing ml/min Est GFR ( Amer) Est GFR (Non-Af Amer) BUN/Creatinine Ratio (10-20) Glucose (70-99) mg/dl Calcium (8.5-10.1) mg/dl Magnesium (1.8-2.4) mg/dl Total Bilirubin (0.2-1) mg/dl AST (15-37) U/L ALT (12-78) U/L Alkaline Phosphatase (45-117) U/L Troponin I (0-0.045) ng/ml Total Protein (6.4-8.2) gm/dl Albumin (3.4-5.0) gm/dl Globulin (2.5-4.0) gm/dl Albumin/Globulin Ratio (0.9-2) TSH (0.300-4.500) uIu/ml Urine Color Yellow Urine Appearance Clear (Clear) Urine pH 5.5 (4.5-7.5) Ur Specific [place] 1.018 (1.000-1.030) Urine Protein Negative (Negative) Urine Glucose (UA) Negative (Negative) Urine Ketones Negative (Negative) Urine Blood Negative (Negative) Urine Nitrite Negative (Negative) Urine Bilirubin Negative (Negative) Urine Urobilinogen Negative (Negative) Ur Leukocyte Esterase Negative (Negative) Diagnostic Findings CT Abdomen and Pelvis - no acute intraabdominal process CTA Chest - no acute PE. CT Head - no intracranial hemorrhage ECG Additional Comments: EKG with NSR at 92, normal axis, BM=474, QRS=76. GCe=279. no acute ischemic changes Code Status & VTE Plan Code Status Full VTE Prophylaxis Plan VTE Prophylaxis will be ordered: Yes PG Care Time/CCT Total # of Minutes Spent Total Time Spent with Patient: Total time spent is greater than 50% in coordination of care (as documented) at patient's floor/unit and/or counseling patient: Coding Level of Care Code 82595 OBS Care - Level 3 Diagnoses Syncope R55 Syncope type: unspecified Bilateral pulmonary embolism I26.99 Graves disease E05.00 Acid reflux K21.9 Esophagitis presence: esophagitis presence not specified Breast cancer C50.919 Breast location: unspecified site of breast Estrogen receptor status: unspecified Laterality: unspecified laterality Patient sex: female History of TIA (transient ischemic attack) Z86.73 (1) Syncope Syncope type: unspecified Qualified Code(s): R55 - Syncope and collapse (2) Acid reflux Esophagitis presence: esophagitis presence not specified Qualified Code(s): K21.9 - Gastro-esophageal reflux disease without esophagitis (3) Breast cancer Breast location: unspecified site of breast Estrogen receptor status: unspecified Laterality: unspecified laterality Patient sex: female Qualified Code(s): C50.919 - Malignant neoplasm of unspecified site of unspecified female breast
[2019-10-30] MEDS ORDERED: LIDOCAINE 5% 1 PATCH TD PRN (06:19)
[2019-10-30] MEDS ORDERED: DOCUSATE SODIUM/SENNA 50/8.6MG TAB PO PRN (06:19)
[2019-10-30] MEDS ORDERED: ACETAMINOPHEN 500 MG TAB PO PRN (06:19)
--- NOTE | 2019-10-30 06:49 | CT Scan Report ---
CT head/brain wo con CT DOSE: 614.27 mGy.cm HISTORY: Mental status change syncope,ams TECHNIQUE: Multiaxial CT images of the head were performed without the use of intravenous contrast. A dose lowering technique was utilized adhering to the principles of ALARA. Comparison: 08/24/2011 Findings: The paranasal sinuses and mastoid air cells are clear. The calvarium and skull base are int act. The ventricles and sulci are within normal limits. There is no mass, hematoma, midline shift, or acute infarct. Impression: No acute intracranial abnormality. ACT 112: Negative or not required by law. The above report was generated using voice recognition software. It may contain grammatical, syntax or spelling errors. Electronically signed by: Air Muhammad M.D. 10/30/2019 6:48 AM
[2019-10-30] MEDS ORDERED: LEVOTHYROXINE SODIUM 125 MCG TABLET PO SCH (07:00)
--- NOTE | 2019-10-30 07:12 | CT Scan Report ---
CT ANGIOGRAM OF THE CHEST CLINICAL HISTORY: Syncope. Prior history of saddle pulmonary embolism. COMPARISON STUDY: 03/28/2019 TECHNIQUE: Following the IV administration of 116 mL of Optiray-320, CT angiogram of the thorax was p erformed from the thoracic inlet to the lung bases utilizing the pulmonary embolus protocol. Images a re reviewed in the axial, sagittal, and coronal planes. IV contrast was administered without complica tion. MIP imaging was performed. A dose lowering technique was utilized adhering to the principles o f ALARA. CT DOSE: FINDINGS: No pathologically enlarged axillary mediastinal or hilar lymph nodes were visualized. There was no evidence of thoracic aortic dilatation. There is mild dilatation the main pulmonary artery segment. There are no pulmonary artery filling def ects to indicate acute pulmonary embolism. No pleural effusions are visualized. There are dependent atelectatic changes. There is an 11 mm mixed solid and groundglass left upper lob e pulmonary nodule. This appears slightly larger than on the preceding study. The solid component was not present on the prior study and currently measures 4 mm. There is pulmonary edema. There is stabl e 3 mm left apical pulmonary nodule. There is a stable 4 mm solid left upper lobe pulmonary nodule. T here is a left apical calcified granuloma. There is an additional stable solid 4 mm left upper lobe p ulmonary nodule. There is pulmonary emphysema IMPRESSION: 1. No evidence of acute pulmonary embolism 2. Dependent atelectatic changes 3. Multiple pulmonary nodules. The most concerning nodule is an 11 mm mixed solid and groundglass lef t upper lobe pulmonary nodule as visualized image #[id number]. There is a 4 mm solid component which was not present in March 2019. This nodule is therefore considered suspicious and pulmonary consultat ion is recommended in follow-up. ACT 112: Positive. There are findings on this exam that require communication between the performing entity and the patient following Patient Test Result Information Act ([place] Act 112) guidelines. Electronically signed by: Alexsander Masters M.D. 10/30/2019 7:10 AM
--- NOTE | 2019-10-30 07:24 | CT Scan Report ---
CT abd pelvis IV con only CLINICAL HISTORY: lower abd pain, syncope, anticoagulation HISTORY BREAST CARCINOMA COMPARISON STUDY: None. TECHNIQUE: The patient was scanned in a dynamic helical fashion during intravenous administration of 116 cc of Optiray 320 A dose lowering technique was utilized adhering to the principles of ALARA. CT DOSE: 1289.03 mGy.cm FINDINGS: Lower chest: There are dependent atelectatic changes. Liver: The contrast-enhanced liver is normal in size, contour, and attenuation. There is no intrahepa tic biliary ductal dilatation. The hepatic veins and portal veins are patent. Gallbladder: Surgically absent Spleen: Normal in size and attenuation. Pancreas: Unremarkable. Adrenal glands: There is a 9 mm left adrenal gland nodule. Kidneys: Subcentimeter renal hypodensities statistically represent cysts. There is no hydronephrosis Bowel: There are no transition zones indicate bowel obstruction. The appendix appears normal. There i s colonic diverticulosis. There is mild peridiverticular muscular hypertrophy. There is no evidence o f acute diverticulitis. Peritoneum: There is no intraperitoneal free air or abdominal ascites. Vasculature: The abdominal aorta is normal in course and caliber. Adenopathy: None. Pelvic viscera: There is a 27 mm exophytic fibroid in the left versus prominent left ovary. Skeletal structures: There are postsurgical changes of a total left hip arthroplasty. IMPRESSION: 1. No evidence of bowel obstruction. No evidence of free air 2. Diverticulosis. No evidence of acute diverticulitis. 3. Normal appendix. 5. Pedunculated uterine fibroid on the left versus prominent ovary ACT 112: Negative or not required by law. Electronically signed by: Alexsander Masters M.D. 10/30/2019 7:23 AM
--- NOTE | 2019-10-30 07:55 | XRay Report ---
XR chest 1V portable HISTORY: 78 years-old Female weakness acute weakness COMPARISON: Chest radiograph 05/06/2019, CTA chest 10/30/2019 TECHNIQUE: Portable AP view of the chest FINDINGS: Cardiac silhouette is upper limits of normal in size. Mild emphysema. Chronic interstitial coarsening . No pneumothorax, pleural effusion, overt pulmonary edema or airspace consolidation typical for pneu monia. Mild left hemidiaphragm elevation with mild linear subsegmental bibasilar atelectasis/scarring . Degenerative changes of the shoulders and spine. IMPRESSION: Emphysema without acute process. ACT 112: Negative or not required by law. The above report was generated using voice recognition software. It may contain grammatical, syntax o r spelling errors. Electronically signed by: Ranjit Bocanegra M.D. 10/30/2019 7:53 AM
[2019-10-30] MEDS ORDERED: metroNIDAZOLE 0.75% TOPICAL GEL 45 GM TUBE TOP SCH (09:00)
[2019-10-30] MEDS ORDERED: CALCIUM 600MG + VIT D 400 IU TAB PO SCH (09:00)
[2019-10-30] MEDS ORDERED: PANTOprazole 40 MG TAB PO SCH (09:00)
[2019-10-30] MEDS ORDERED: CLOPIDOGREL BISULFATE 75 MG TAB PO SCH (09:00)
--- NOTE | 2019-10-30 13:57 | Ultrasound Report ---
US carotid doppler BI HISTORY: Mental status change Syncope COMPARISON: None. TECHNIQUE: Real-time, grayscale, and color Doppler sonography of the carotid arteries was performed. Imaging reviewed in the transverse and longitudinal planes. All measurements were calculated based on NASCET criteria. FINDINGS: Antegrade flow is seen in the bilateral vertebral arteries. The brachial pressures are hemodynamically similar. Mild plaque formation bilaterally The peak systolic velocity within the right ICA is 58. The right systolic ratio is 1.1. The peak systolic velocity within the left ICA is 95. The left systolic ratio is 0.8. IMPRESSION: No hemodynamically significant stenosis seen within the carotid arteries. ACT 112: Negative or not required by law. The above report was generated using voice recognition software. It may contain grammatical, syntax or spelling errors. Electronically signed by: Ari Muhammad M.D. 10/30/2019 1:56 PM
[2019-10-30] MEDS ORDERED: RIVAROXABAN 20 MG TAB PO SCH (16:30)
--- NOTE | 2019-10-30 18:42 | XCELERA ---
[id number] \\[id number]
--- NOTE | 2019-10-31 04:38 | Electrocardiogram Report ---
Test Reason : Blood Pressure : / mmHG Vent. Rate : 092 BPM Atrial Rate : 092 BPM P-R Int : 142 ms QRS Dur : 076 ms QT Int : 380 ms P-R-T Axes : 074 066 074 degrees QTc Int : 469 ms Normal sinus rhythm Normal ECG When compared with ECG of 06-MAY-2019 22:40, No significant change was found Confirmed by Antoine Thompson ([id number]) on 10/31/2019 4:37:41 AM Referred By: REFERRED SELF Confirmed By:Antoine Thompson
--- NOTE | 2019-10-31 10:54 | Discharge Summary ---
Date of Service October 30, 2019 Admission HPI Per Admitting Provider Lali Young is a pleasant 78yo C female presenting with syncope. She was at home this evening with her when she suddenly became unconscious. Patient has no recollection of the event. She states that she was watching TV one minute then woke up in the hospital. She denies CP/palpitations/dizziness/sweating/SOB/numbness/tingling/weakness/headache preceding or following the event. No head trauma. No evidence of tongue biting, no incontinence or seizure like activity reported. No post-ictal state. Patient estimated down time 15-20 minutes (EMS brought her from [place]). Mrs. Young was admitted to [facility] in March 2019 with a saddle PE. She was managed with IV heparin and transitioned to Xarelto. She denies RLE pain/swelling, no cough/SOB/CP. No additional complaints at this time. ER Course: NSS Principal Diagnosis Syncope Discharge Exam Constitutional WD/WN, vitals as above Eyes PERRL, conjunctivae normal, anicteric sclerae ENMT external ear and nose normal, oropharynx normal Neck trachea midline, no thyromegaly Respiratory normal respiratory effort, lungs clear to auscultation Cardiovascular RRR, no murmur, no edema Gastrointestinal (Abdomen) normal bowel sounds, soft, nontender, no hepatosplenomegaly Musculoskeletal no cyanosis or clubbing, extremities motor strength 5/5 Skin no rashes, warm and dry Neurologic patellar DTR's 2+ bilat, sensation intact and PERRL, EOMI, accommodation nl, no face palsy, no dysarthria Psychiatric A+Ox3, euthymic affect Lymphatic no cervical or axillary lymphadenopathy Discharge Data Allergies Allergy/AdvReac Type Severity Reaction Status Date / Time ampicillin [From [place]] Allergy Unknown Unknown Verified 10/30/19 01:33 doxycycline Allergy Unknown UNKNOWN Verified 10/30/19 01:33 morphine Allergy Unknown RASH, Verified 10/30/19 01:33 DROPS BLOOD PRESSURE DRASTICALLY nystatin [From Mycostatin] Allergy Unknown Unknown Verified 10/30/19 01:33 Sulfa (Sulfonamide Allergy Unknown . Verified 10/30/19 01:33 Antibiotics) Consultations 10/30/19 02:15 ED Decision to Admit Stat Ordered Studies 10/29/19 23:36 CT abd pelvis IV con only Urgent CT angio chest PE protocol Urgent CT head/brain wo con Urgent 10/30/19 13:30 US carotid doppler BI Urgent Hospital Course (1) Syncope: Patient with episode of syncope with prolonged down time of 15-20 minutes, no prodrome to suggest vasovagal or orthostatic etiology. No reported seizure activity. no clear etiology, but no further symptoms, ambulating independently several times CT head negative for acute pathology CTA chest negative for PE, pneumonia no evidence of acute SD on EKG, troponin negative, no chest pain at rest or with activity echocardiogram with EF 55%, no wall motion abnormalities, no aortic stenosis no focal neurologic deficits noted at time of admission or the next day, no signs that this was a stroke carotid doppler without significant stenosis to suggest decreased blood flow normal sinus rhythm the entire time on monitor will d/c to home arrange for event monitor to wear for the next month in case she had an arrhythmia that caused the syncope follow up with PCP (2) Bilateral pulmonary embolism: In March 2019, etiology unclear. Repeat imaging performed in ER with no acute PE or increased clot burden -Continue Xarelto (3) Graves disease: S/p radioactive [place] [facility] [place] 1992. TSH within normal limits -Continue Synthroid (4) Acid reflux: Chronic. Stable -Continue Omeprazole (5) Breast cancer: Found incidentally with MRI scanning in [address] 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 CT head WNL -Continue Plavix 75mg po qod for microvascular ischemic changes F/E/N - Heplock. Electrolytes WNL. Regular diet as tolerated Ppx - On Xarelto Code - Full Dispo - Observation Total Time Total Time Spent Total Time Spent (In Minutes): 25 Total Time Includes: Examination of the Patient, Discharge Planning and Medication Reconciliation Discharge Plan Discharge Items Patient Disposition: Home - Self-Care Reason For Visit: SYNCOPE Discharge Diagnosis: Syncope and collapse Condition on Discharge: Good Goals: wear event monitor to look for arrhythmia at home as cause stay well hydrated, well nourished, get rest be sure to change positions slowly, don't get up too fast Activity: Resume your previous activity Driving/Machine Use: No limitations Weightbearing: Full weightbearing Non-emergency contact: Primary Care Provider Call non-emergency contact if: you have any medication questions and your symptoms worsen Follow-up/Referrals: Silverio Andrade III, MD [Primary Care Provider] - (one week) Diet: Heart Healthy Addtl Attending Provider Instructions: Medications: no changes Syncope and collapse no obvious etiology no evidence of arrhythmia on the monitor, no afib, no pauses no evidence of severe valve disease or weak heart on echo no evidence of carotid stenosis on carotid doppler vitals stable while here no evidence of acute heart attack I will send an event monitor to your home, follow instructions, this will look for arrhythmia as a cause of syncope please follow up with Dr. Andrade stay well hydrated, well nourished, change positions (seated to standing) slowly Pending Studies at Discharge: Yes Studies:: final echo report Stand-Alone Forms: My [facility] [employer], Smoking Cessation Medications and DC Order Prescriptions: Continued sennosides-docusate sodium [Senokot-S] 8.6-50 mg tablet 1 tab PO BID PRN (Reason: Constipation) RF: 0 lidocaine 5 % adhesive patch,medicated 1 patch topical DAILY PRN (Reason: pain) Qty: 90 RF: 1 ergocalciferol (vitamin D2) 50,000 unit capsule 50,000 units PO WEEKLY Qty: 14 RF: 3 levothyroxine 125 mcg tablet 125 mcg PO DAILY Qty: 90 RF: 3 omeprazole 20 mg capsule,delayed release(DR/EC) 20 mg PO Q2D Qty: 60 RF: 5 clopidogrel 75 mg tablet 75 mg PO Q2D Qty: 90 RF: 3 Xarelto 20 mg tablet 20 mg PO DAILY Qty: 30 RF: 5 calcium carbonate-vitamin D3 600 mg calcium- 200 unit capsule 2 cap PO DAILY RF: 0 clotrimazole-betamethasone 1-0.05 % cream 1 appln topical UD Qty: 1 RF: 0 fluocinonide 0.05 % gel 1 appln topical UD Qty: 1 RF: 0 aspirin [Aspirin Low Dose] 81 mg Tablet,Delayed Release (Dr/Ec) 81 mg PO DAILY RF: 0 acetaminophen [Tylenol Extra Strength] 500 mg Tablet 500 - 1,000 mg PO Q6H PRN (Reason: Pain) RF: 0 metronidazole 0.75 % Gel 1 applic TOPICAL DAILY RF: 0 Discharge Orders: Discharge Order (Routine); Ordered 10/30/19 Ordered By: Boy Camara Admission Data Admit Date/Time: 10/30/19 02:53 Attending Provider: Boy Camara Admit Provider: Cyndy Rivero Primary Care Provider: Silverio Andrade III Other Providers: Cyndy Rivero Other Interventions: Discharge Summary Assessment (RN) Last Done: 10/30/19 16:38 DC Date/Time DO NOT enter until pt leaves facility: 10/30/19 17:12 Coding Level of Care Code 55109 OBS Care - Discharge Diagnoses Syncope R55 Syncope type: unspecified Bilateral pulmonary embolism I26.99 Graves disease E05.00 Acid reflux K21.9 Esophagitis presence: esophagitis presence not specified Breast cancer C50.919 Breast location: unspecified site of breast Estrogen receptor status: unspecified Laterality: unspecified laterality Patient sex: female History of TIA (transient ischemic attack) Z86.73
== END 2019-10-30 17:12 | disposition home or self-care (01) ==
LOC: ED 23:03 → 2N 23:03 → SUATTDRO 10-30 02:53 → 2N 10-30 05:40

== ENCOUNTER 2022-03-03 22:59 | Inpatient (IN) ==
[2022-03-03] MEDS ORDERED: OPTIRAY 320 500ml IV ONE (23:13)
[2022-03-03] MEDS ORDERED: SODIUM CHLORIDE 0.9% 1000ML 1,000 ML IV ONE (23:16)
[2022-03-03] MEDS ORDERED: LEVETIRACETAM IV STA (23:31)
[2022-03-03] MEDS ORDERED: SODIUM CHLORIDE 0.9% IV STA (23:31)
[2022-03-03 23:36] LABS: Basophils # (auto) 0.06 K/uL (0-0.2); Basophils % (auto) 0.5 %; Eosinophils # (auto) 0.05 K/uL (0-0.50); Eosinophils % (auto) 0.4 %; Hematocrit (blood only) 40.4 % (34.1-44.9); Hemoglobin 13.3 g/dl (12.0-16.0); Immature Granulocytes # (auto) 0.08 K/uL (0.00-0.02); Immature Granulocytes % (auto) 0.7 %; Lymphocytes # (auto) 0.99 K/uL (1.2-3.4); Lymphocytes % (auto) 8.7 %; Mean Corpuscular Hemoglobin 30.2 pg (25.0-34.0); Mean Corpuscular Hgb Conc 32.9 g/dL (32.0-36.0); Mean Corpuscular Volume 91.6 fL (80.0-100.0); Mean Platelet Volume 8.2 fL (9.4-12.3); Monocytes # (auto) 0.48 K/uL (0.24-0.82); Monocytes % (auto) 4.2 %; Neutrophils # (auto) 9.73 K/uL (1.4-6.5); Neutrophils % (auto) 85.5 %; Platelet Count 215 K/uL (130-400); RDW Coefficient of Variation 12.8 % (11.5-14.5); RDW Standard Deviation 42.4 fL (36.4-46.3); Red Blood Count 4.41 M/uL (3.93-5.22); White Blood Count 11.39 K/ul (4.8-10.8)
--- NOTE | 2022-03-03 23:42 | Emergency Department Note ---
Impression & Plan Seizure, History of TIA (transient ischemic attack), On rivaroxaban therapy ED Provider Note NAME: QUENTIN LOPEZ AGE: 81 SEX: F ARRIVES VIA: Ambulance INFORMANT: EMS, ED PROVIDER(S): Bautista Barker MD CHIEF COMPLAINT: AMS PLAN: Disposition: Admit MEDICAL DECISION MAKING: The patient is a 81-year-old woman with a past medical history of dementia, saddle pulmonary embolism in 2019 on Xarelto, COPD, RAJEEV, hypothyroidism, history of syncope, TIA, GERD, remote breast cancer who presents to the emergency department via EMS for cute onset altered mental status around 10:45 PM this evening when she was sitting in her reclining chair and her reports she suddenly began to stare into space and was shaking where she did have drool coming from her mouth with some blood which lasted approximately 4 to 5 minutes and afterwards would not respond to him. EMS was called and found the patient to be unresponsive and called medical command. She had flaccid left-sided weakness. Stroke alert was activated per my discussion with EMS crew on medical command call. Her denies any history of alcohol use. He reports she has been healthy recently and denies any fevers, chills, new cough, GI or symptoms. On arrival to emergency department the patient was afebrile with heart in the 100s and vital signs otherwise stable. When she arrived she was unresponsive with eyes open. She would not follow commands. Normal respiratory effort. She would move her right leg [id number] without purpose when in the CT scanner. The patient was taken directly to CT where CT of the head and CT of the head neck were performed. Upon arriving to the critical care bay she suddenly was verbal answering questions following commands and moving all extremities equally with generalized weakness. EKG without overt acute ischemia. CXR with nonspecific interstitial thickening without focal infiltrates per my preliminary review. Per preliminary stat rad report CT of the head was negative for acute abnormalities. Preliminary stat rad report for CTA of the head and neck also negative for acute abnormalities. WBC 11.3K nonspecific. H/H wnl. Platelets within normal limits. Chemistry with bicarbonate of 18 in the setting of suspected seizure. Sodium 132. Electrolytes without significant abnormality. High-sensitivity troponin 7.2, within normal limits. UA with WBCs and leuk esterase albeit with epithelial cells present and no bacteria. COVID-19 RNA, LILLIAN test was negative. Patient was loaded with 800 mg of IV Keppra with decreased dosing due to age and dementia. at the bedside was updated on patient's status and agrees with plan for admission. Case was [place] House, [facility] [place] who evaluated the patient for [place]. Triage Nursing notes reviewed and agree them. Prior medical records reviewed Vital Signs: reviewed and remarkable for no significant abnormalities Differential diagnosis: Infection, hypoglycemia, electrolyte abnormalities, overdose, toxicologic, cardiac sources, intracerebral event, neurologic, trauma, as well as other pathologies. ER treatment provided: See below. Diagnostics interpreted by me: ECG: Normal sinus rhythm, 87 bpm, no ectopy, no overt ST elevation depression, QTC 447, QRS 82. Cardiac Monitoring: An order for continuous cardiac monitoring was placed and demonstrated Normal sinus rhythm, 87 bpm, no ectopy. Laboratory studies: See below Imaging studies: See below Consultation(s): Case was discussed [place] Dr. House [facility] [place], who will evaluate the patient for admission. HPI: The patient is a 81-year-old woman with a past medical history of dementia, saddle pulmonary embolism in 2019 on Xarelto, COPD, RAJEEV, hypothyroidism, history of syncope, TIA, GERD, remote breast cancer who presents to the emergency department via EMS for cute onset altered mental status around 10:45 PM this evening when she was sitting in her reclining chair and her reports she suddenly began to stare into space and was shaking where she did have drool coming from her mouth with some blood which lasted approximately 4 to 5 minutes and afterwards would not respond to him. EMS was called and found the patient to be unresponsive and called medical command. She had flaccid left-sided weakness. Stroke alert was activated per my discussion with EMS crew on medical command call. Her denies any history of alcohol use. He reports she has been healthy recently and denies any fevers, chills, new cough, GI or symptoms. ROS: See above HPI for pertinent positives & negatives. A total of 10 systems reviewed and were otherwise negative. VITALS:See Below PHYSICAL EXAMINATION: GENERAL: On arrival was unresponsive with eyes open nonpurposeful movements of the right lower extremity. Nonverbal. HENT: Normocephalic, atraumatic. Oropharynx with dry mucous membranes with evid ence of tongue biting. EYES: Normal conjunctiva. Sclera non-icteric. NECK: Supple. No nuchal rigidity. FROM. No JVD. RESPIRATORY: Clear to auscultation. CARDIAC: Regular rate, normal rhythm. Extremities warm and well perfused. Pulses equal. ABDOMEN: Soft, non-distended. No tenderness to palpation. No rebound or guarding. No masses. RECTAL: Deferred. MUSCULOSKELETAL: Chest examination reveals no tenderness. The back is symmetrical on inspection without obvious abnormality. There is no CVA tendern ess to palpation. No joint edema. LOWER EXTREMITIES: Calves are equal size bilaterally and non-tender. No edema. No discoloration. NEURO: On arrival was unresponsive with eyes open nonpurposeful movements of the right lower extremity. Nonverbal. SKIN: No rash or jaundice noted. ED COURSE: Critical Care: I have personally spent greater than 35 minutes of critical care time in the direct management of this patient. This includes bedside care, interpretation of diagnostic studies, and testing, discussion with consultants, patient, and family members, and other required patient management activities. This 35 minutes is in excess of all separately billable procedures. Bautista Barker MD Past Med/Surg History Medical History (Updated 03/04/22 @ 02:43 by Bautista Barker MD) Acid reflux Bilateral hip bursitis Breast cancer (2007) "Abnormal right breast mammogram Status post biopsy revealing infiltrating ductal carcinoma Estrogen receptor positive, progesterone receptor positive, HER-2/wes positive Status post lumpectomy with sentinel lymph node biopsy stage [id number] Status post completion of radiation therapy 04/21/2008 received 6120 cGy " Graves disease History of TIA (transient ischemic attack) (08/2011) History of tobacco abuse Sacroiliitis Sleep apnea TIA (transient ischemic attack) Surgical History History of hip replacement left hip Hx of cholecystectomy Ovary removal, prophylactic S/P breast lumpectomy Family History Grandmother Breast cancer Mother Stroke Father Pulmonary embolism due to this Denies family history of Ovarian cancer Prostate cancer Myocardial infarction Colorectal cancer Social History Smoking Status: Former smoker Tobacco Type: Cigarettes Age Started Using Tobacco: 17; Age Quit Using Tobacco: 69; packs per day: 1; Second Hand Exposure: Yes; Hx Alcohol Use: No Hx Substance Use: No Preferred Language: Nepalese Communication Ability: Effective Visual Impairment: Limited Hearing Ability: Normal 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 Required: No Beliefs That Will Affect Care: None marital status: Current Living Situation: Spouse current occupational status: retired 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 Feels Safe at Home: Yes Childhood Exposure to Second-Hand Smoke: Yes Dental Care, Regularly: Yes Physical Activity Frequency: 3-4 Times per Week Physical Activity Frequency Comment: weight lifting, aerobics 45minutes Seatbelt Use: always Sunscreen Use: Yes Assistive Devices: None Allergies Allergies Allergy/AdvReac Type Severity Reaction Status Date / Time morphine Allergy Severe RASH, Verified 03/03/22 23:30 DROPS BLOOD PRESSURE DRASTICALLY ampicillin [From Principen] Allergy Unknown Unknown Verified 03/03/22 23:30 doxycycline Allergy Unknown UNKNOWN Verified 03/03/22 23:30 nystatin [From Mycostatin] Allergy Unknown Unknown Verified 03/03/22 23:30 Sulfa (Sulfonamide Allergy Unknown Unknown Verified 03/03/22 23:30 Antibiotics) Home Meds Home Medications Medication Instructions Recorded Confirmed sennosides 8.6 mg-docusate sodium 1 tab PO BID PRN Constipation 03/20/18 03/03/22 50 mg tablet (Senokot-S) calcium carbonate 600 mg-vitamin 2 cap PO DAILY 12/25/18 03/03/22 D3 5 mcg (200 unit) capsule clotrimazole-betamethasone 1 1 appln topical DIRECTED PRN 12/25/18 03/03/22 %-0.05 % topical cream Skin Irritation #1 g fluocinonide 0.05 % topical gel 1 appln topical DIRECTED #1 g 12/25/18 03/03/22 acetaminophen 500 mg tablet 500 - 1,000 mg PO Q6H PRN Pain 10/30/19 03/03/22 (Tylenol Extra Strength) metronidazole 0.75 % topical gel 1 applic topical DAILY 10/30/19 03/03/22 rivaroxaban 20 mg tablet (Xarelto) 20 mg PO HS 03/03/22 03/03/22 Previous Rx's Medication Instructions Recorded lidocaine 5 % topical patch 1 patch topical DAILY PRN pain #90 01/06/19 ea ipratropium bromide 42 mcg (0.06 2 spray intranasal BID PRN allergy 08/31/20 %) nasal spray symptoms #15 mL albuterol sulfate 90 mcg/actuation 2 puff inhalation Q6H PRN 08/23/21 aerosol inhaler Shortness Of Breath Or Wheezing #18 grams umeclidinium 62.5 mcg-vilanterol 1 inh inhalation DAILY #60 ea 08/23/21 25 mcg/actuation powdr for inhalation (Anoro Ellipta) omeprazole 20 mg capsule,delayed 20 mg PO Q2D #60 caps 10/26/21 release ergocalciferol (vitamin D2) 1,250 50,000 unit PO WEEKLY #14 caps 12/28/21 mcg (50,000 unit) capsule levothyroxine 112 mcg tablet 112 mcg PO DAILY #90 tabs 01/03/22 clopidogrel 75 mg tablet 75 mg PO Q2D #90 tabs 02/21/22 Results & Data (ED) Vital Signs Vital Signs - 24 hr 03/03/22 23:20 03/03/22 23:44 03/03/22 23:20 Temperature 36.9 C Temperature Source Oral Pulse Rate 91 H 80 Pulse Rate [Right Finger] Respiratory Rate 20 18 Respiratory Effort / Characteristics Non-Labored Spontaneous Respiratory Depth Normal Respiratory Pattern Blood Pressure 135/55 L 128/62 Blood Pressure [Right Arm] Blood Pressure Mean 81 84 Blood Pressure Mean [Right Arm] Blood Pressure Position [Right Arm] Pulse Oximetry 89 L 99 89 L Oxygen Delivery Method Room Air Nasal Cannula Nasal Cannula Oxygen Flow Rate 4 Sepsis New/Unexplained Change in Mental Status N/A Sepsis Action Taken by Nursing No Action Required Oxygen Flow Rate - Titration 4 Pulse Oximetry Post Tiitration 100 03/04/22 00:00 03/03/22 23:05 Temperature 36.8 C Temperature Source Oral Pulse Rate 78 Pulse Rate [Right Finger] 104 H Respiratory Rate 20 16 Respiratory Effort / Characteristics Non-Labored Spontaneous Respiratory Depth Normal Respiratory Pattern Regular Blood Pressure 123/52 L Blood Pressure [Right Arm] 135/55 L Blood Pressure Mean 75 Blood Pressure Mean [Right Arm] 81 Blood Pressure Position [Right Arm] Semi-fowlers Pulse Oximetry 100 99 Oxygen Delivery Method Nasal Cannula Nasal Cannula Oxygen Flow Rate 2 4 Sepsis New/Unexplained Change in Mental Status Sepsis Action Taken by Nursing Oxygen Flow Rate - Titration Pulse Oximetry Post Tiitration Laboratory Data Attestation: I reviewed the patient's lab results. Result diagrams: 03/03/22 23:23 03/03/22 23:23 Lab Results 03/03/22 03/03/22 03/03/22 Range/Units 23:20 23:23 23:23 WBC 11.39 H (4.8-10.8) K/ul RBC 4.41 (3.93-5.22) M/uL Hgb 13.3 (12.0-16.0) g/dl Hct 40.4 (34.1-44.9) % MCV 91.6 (80.0-100.0) fL MCH 30.2 (25.0-34.0) pg MCHC 32.9 (32.0-36.0) g/dL RDW Std Deviation 42.4 (36.4-46.3) fL RDW Coeff of Jean 12.8 (11.5-14.5) % Plt Count 215 (130-400) K/uL MPV 8.2 L (9.4-12.3) fL Immature Gran % (Auto) 0.7 % Neut % (Auto) 85.5 % Lymph % (Auto) 8.7 % Bond % (Auto) 4.2 % Eos % (Auto) 0.4 % Baso % (Auto) 0.5 % Neut # (Auto) 9.73 H (1.4-6.5) K/uL Lymph # (Auto) 0.99 L (1.2-3.4) K/uL Bond # (Auto) 0.48 (0.24-0.82) K/uL Eos # (Auto) 0.05 (0-0.50) K/uL Baso # (Auto) 0.06 (0-0.2) K/uL Immature Gran # (Auto) 0.08 H (0.00-0.02) K/uL PT 12.3 H (9.0-12.0) Seconds INR 1.2 H (0.9-1.1) APTT 27.9 (21.0-31.0) Seconds PTT Ratio 1.0 Sodium (136-145) mmol/L Potassium (3.5-5.1) mmol/L Chloride (98-107) mmol/L Carbon Dioxide (21-32) mmol/L Anion Gap (3-11) BUN (6-23) mg/dl Creatinine (0.6-1.2) mg/dl Est Cr Clr Drug Dosing ml/min Est GFR ( Amer) ml/min Est GFR (Non-Af Amer) ml/min BUN/Creatinine Ratio (10-20) Glucose (70-99(Fasting)) mg/dl POC Glucose 137 H (70-99) mg/dl Calcium (8.5-10.1) mg/dl Phosphorus (2.5-4.9) mg/dl Magnesium (1.7-2.4) mg/dl Total Bilirubin (0.2-1.0) mg/dl AST (13-39) U/L ALT (7-52) U/L Alkaline Phosphatase (34-104) U/L Troponin I High Sens (0-14) pg/ml Total Protein (6.0-8.3) gm/dl Albumin (3.4-5.0) gm/dl Globulin (2.5-4.0) gm/dl Albumin/Globulin Ratio (0.9-2) TSH (0.300-4.500) uIu/ml Prolactin ng/ml Urine Color Urine Appearance (Clear) Urine pH (4.5-7.5) Ur Specific Lovely (1.000-1.030) Urine Protein (Negative) Urine Glucose (UA) (Negative) Urine Ketones (Negative) Urine Blood (Negative) Urine Nitrite (Negative) Urine Bilirubin (Negative) Urine Urobilinogen (Negative) Ur Leukocyte Esterase (Negative) Urine WBC (Auto) (0-5) /hpf Urine RBC (Auto) (0-4) /hpf U Hyaline Cast (Auto) (0-5) /lpf U Epithel Cells (Auto) (0-5) /lpf Urine Bacteria (Auto) (Negative) SARS-CoV-2, RNA, NAAT (NEGATIVE) 03/03/22 03/03/22 03/03/22 Range/Units 23:23 23:23 23:23 WBC (4.8-10.8) K/ul RBC (3.93-5.22) M/uL Hgb (12.0-16.0) g/dl Hct (34.1-44.9) % MCV (80.0-100.0) fL MCH (25.0-34.0) pg MCHC (32.0-36.0) g/dL RDW Std Deviation (36.4-46.3) fL RDW Coeff of Jean (11.5-14.5) % Plt Count (130-400) K/uL MPV (9.4-12.3) fL Immature Gran % (Auto) % Neut % (Auto) % Lymph % (Auto) % Bond % (Auto) % Eos % (Auto) % Baso % (Auto) % Neut # (Auto) (1.4-6.5) K/uL Lymph # (Auto) (1.2-3.4) K/uL Bond # (Auto) (0.24-0.82) K/uL Eos # (Auto) (0-0.50) K/uL Baso # (Auto) (0-0.2) K/uL Immature Gran # (Auto) (0.00-0.02) K/uL PT (9.0-12.0) Seconds INR (0.9-1.1) APTT (21.0-31.0) Seconds PTT Ratio Sodium 132 L (136-145) mmol/L Potassium 4.3 (3.5-5.1) mmol/L Chloride 101 (98-107) mmol/L Carbon Dioxide 18 L (21-32) mmol/L Anion Gap 13 H (3-11) BUN 13 (6-23) mg/dl Creatinine 0.83 (0.6-1.2) mg/dl Est Cr Clr Drug Dosing 53.4 ml/min Est GFR ( Amer) 77.2 ml/min Est GFR (Non-Af Amer) 66.6 ml/min BUN/Creatinine Ratio 15.7 (10-20) Glucose 140 H (70-99(Fasting)) mg/dl POC Glucose (70-99) mg/dl Calcium 8.1 L (8.5-10.1) mg/dl Phosphorus 3.8 (2.5-4.9) mg/dl Magnesium 2.1 (1.7-2.4) mg/dl Total Bilirubin 0.5 (0.2-1.0) mg/dl AST 15 (13-39) U/L ALT 12 (7-52) U/L Alkaline Phosphatase 81 (34-104) U/L Troponin I High Sens 7.2 (0-14) pg/ml Total Protein 5.5 L (6.0-8.3) gm/dl Albumin 3.5 (3.4-5.0) gm/dl Globulin 2.0 L (2.5-4.0) gm/dl Albumin/Globulin Ratio 1.8 (0.9-2) TSH 0.995 (0.300-4.500) uIu/ml Prolactin 22.03 ng/ml Urine Color Urine Appearance (Clear) Urine pH (4.5-7.5) Ur Specific Lovely (1.000-1.030) Urine Protein (Negative) Urine Glucose (UA) (Negative) Urine Ketones (Negative) Urine Blood (Negative) Urine Nitrite (Negative) Urine Bilirubin (Negative) Urine Urobilinogen (Negative) Ur Leukocyte Esterase (Negative) Urine WBC (Auto) (0-5) /hpf Urine RBC (Auto) (0-4) /hpf U Hyaline Cast (Auto) (0-5) /lpf U Epithel Cells (Auto) (0-5) /lpf Urine Bacteria (Auto) (Negative) SARS-CoV-2, RNA, NAAT (NEGATIVE) 03/03/22 03/03/22 Range/Units 23:40 23:47 WBC (4.8-10.8) K/ul RBC (3.93-5.22) M/uL Hgb (12.0-16.0) g/dl Hct (34.1-44.9) % MCV (80.0-100.0) fL MCH (25.0-34.0) pg MCHC (32.0-36.0) g/dL RDW Std Deviation (36.4-46.3) fL RDW Coeff of Jean (11.5-14.5) % Plt Count (130-400) K/uL MPV (9.4-12.3) fL Immature Gran % (Auto) % Neut % (Auto) % Lymph % (Auto) % Bond % (Auto) % Eos % (Auto) % Baso % (Auto) % Neut # (Auto) (1.4-6.5) K/uL Lymph # (Auto) (1.2-3.4) K/uL Bond # (Auto) (0.24-0.82) K/uL Eos # (Auto) (0-0.50) K/uL Baso # (Auto) (0-0.2) K/uL Immature Gran # (Auto) (0.00-0.02) K/uL PT (9.0-12.0) Seconds INR (0.9-1.1) APTT (21.0-31.0) Seconds PTT Ratio Sodium (136-145) mmol/L Potassium (3.5-5.1) mmol/L Chloride (98-107) mmol/L Carbon Dioxide (21-32) mmol/L Anion Gap (3-11) BUN (6-23) mg/dl Creatinine (0.6-1.2) mg/dl Est Cr Clr Drug Dosing ml/min Est GFR ( Amer) ml/min Est GFR (Non-Af Amer) ml/min BUN/Creatinine Ratio (10-20) Glucose (70-99(Fasting)) mg/dl POC Glucose (70-99) mg/dl Calcium (8.5-10.1) mg/dl Phosphorus (2.5-4.9) mg/dl Magnesium (1.7-2.4) mg/dl Total Bilirubin (0.2-1.0) mg/dl AST (13-39) U/L ALT (7-52) U/L Alkaline Phosphatase (34-104) U/L Troponin I High Sens (0-14) pg/ml Total Protein (6.0-8.3) gm/dl Albumin (3.4-5.0) gm/dl Globulin (2.5-4.0) gm/dl Albumin/Globulin Ratio (0.9-2) TSH (0.300-4.500) uIu/ml Prolactin ng/ml Urine Color Yellow Urine Appearance Clear (Clear) Urine pH 5.5 (4.5-7.5) Ur Specific Lovely 1.020 (1.000-1.030) Urine Protein Negative (Negative) Urine Glucose (UA) Negative (Negative) Urine Ketones Trace H (Negative) Urine Blood Trace H (Negative) Urine Nitrite Negative (Negative) Urine Bilirubin Negative (Negative) Urine Urobilinogen Negative (Negative) Ur Leukocyte Esterase 2+ H (Negative) Urine WBC (Auto) 10-30 H (0-5) /hpf Urine RBC (Auto) 0-4 (0-4) /hpf U Hyaline Cast (Auto) 1-5 (0-5) /lpf U Epithel Cells (Auto) 10-20 H (0-5) /lpf Urine Bacteria (Auto) Negative (Negative) SARS-CoV-2, RNA, NAAT NEGATIVE (NEGATIVE) Administered Medications Potassium Chloride/Sodium Chloride (Normal Saline W/20 Meq Kcl) 20 meq in 1,000 mls @ 80 mls/hr IV .[id number] OLMAN Stop: 03/04/22 14:29 Last Admin: 03/04/22 02:16 Dose: 80 mls/hr Documented By: SULAIMAN Discontinued Medications Sodium Chloride (Nss 1000ml) 1,000 mls @ 999 mls/hr IV .[id number] ONE Stop: 03/04/22 00:16 Last Infusion: 03/04/22 01:00 Dose: 0 mls/hr Documented By: Admin: 03/03/22 23:59 Dose: 999 mls/hr Documented By: DONALD Levetiracetam 800 mg/ Sodium (Chloride) 108 mls @ 440 mls/hr IV NOW STA Stop: 03/03/22 23:45 Last Infusion: 03/04/22 00:16 Dose: 0 mls/hr Documented By: Admin: 03/04/22 00:00 Dose: 440 mls/hr Documented By: DONALD Ioversol (Optiray 320 500ml) 116 ml IV ONCE ONE Stop: 03/03/22 23:14 Last Admin: 03/03/22 23:14 Dose: 116 ml Documented By: ROBBY Imaging Data My Impression: CXR: Nonspecific interstitial thickening without focal infiltrates per my preliminary review Radiologist's Impression: STATRAD Preliminary Findings Only See Final Report For Complete Findings CT HEAD: No acute abnormality. Compared to 10/30/2019 No acute intracranial hemorrhage or abnormal extra-axial fluid collection. No acute stroke. Non-specific white matter changes, most commonly seen with small vessel disease. Age-appropriate central and peripheral atrophy. No midline shift. No paranasal sinus air-fluid level. No fracture. Radiologist: Artie You M.D. Study ready at 23:25 and initial results transmitted at 23:32 Preliminary Findings Only See Final Report For Complete Findings CTA NECK: IMPRESSION: No hemodynamically significant stenosis. FINDINGS: No thrombosis or occlusion. No evidence for dissection. Minimal calcified plaque at the right carotid bulb without a hemodynamically significant stenosis. Left carotid bulb and remainder of the bilateral common and internal carotid arteries are normal in appearance. Bilateral vertebral arteries are unremarkable. Degenerative changes of the spine. Radiologist: Artie You M.D. Study ready at 23:26 and initial results transmitted at 23:46 Preliminary Findings Only See Final Report For Complete Findings CTA HEAD: No evidence of acute cerebrovascular pathology. 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 The right vertebral artery and anterior circulation are widely patent. These findings are unchanged from prior CT angiogram of the head from January 24, 2022. Radiologist: Lupe Campbell MD Study ready at 06:07 and initial results transmitted at 06:22 -- Discharge Plan Visit Data Chief Complaint: Stroke/CVA Symptoms Stated Complaint: stroke alert ED Provider: Bautista Barker Discharge Problem: Seizure, History of TIA (transient ischemic attack), On rivaroxaban therapy Patient Disposition: Admitted As Inpatient Discharge Instructions Interventions: ED Discharge Assessment Last Done: 03/04/22 01:03
[2022-03-03 23:47] LABS: INR 1.2 (0.9-1.1); Partial Thromboplastin Time 27.9 Seconds (21.0-31.0); Prothrombin Time 12.3 Seconds (9.0-12.0)
[2022-03-04 00:04] LABS: Appearance Urine Clear (Clear); Bacteria Urine Automated Negative (Negative); Bilirubin Urine Negative (Negative); Blood Urine Trace (Negative); Color Urine Yellow; Glucose Urine UA Negative (Negative); Ketones Urine Trace (Negative); Leukocyte Esterase Urine 2+ (Negative); Nitrite Urine Negative (Negative); Protein Urine Negative (Negative); RBC Urine Automated 0-4 /hpf (0-4); Urobilinogen Urine Negative (Negative); pH Urine 5.5 (4.5-7.5)
[2022-03-04 00:49] LABS: Albumin Globulin Ratio 1.8 (0.9-2); Albumin Level 3.5 gm/dl (3.4-5.0); BUN Creatinine Ratio 15.7 (10-20); Bilirubin,Total 0.5 mg/dl (0.2-1.0); Calcium 8.1 mg/dl (8.5-10.1); Creatinine Clr Calc Pharmacy 53.4 ml/min; Est GFR (African American) 77.2 ml/min; Est GFR (Non-African American) 66.6 ml/min; Magnesium 2.1 mg/dl (1.7-2.4); Phosphorus 3.8 mg/dl (2.5-4.9); Potassium 4.3 mmol/L (3.5-5.1); Total Protein 5.5 gm/dl (6.0-8.3); Troponin I High Sensitivity 7.2 pg/ml (0-14)
--- NOTE | 2022-03-04 01:21 | History & Physical Report ---
Date of Service March 04, 2022 Assessment & Plan (1) Seizure: Plan: Acute seizure activity with postictal state- CT head, CTA head and neck all negative No signs of acute infection or electrolyte disturbance to explain symptoms Admit to monitored bed Seizure precautions Given Keppra 800 mg IV from the ED Keppra 500 mg p.o. twice daily Order MRI of brain seizure protocol Order EEG Consult neurology (2) Post-ictal state: Plan: See above (3) History of TIA (transient ischemic attack): Plan: Continue clopidogrel (4) Acid reflux: Plan: Continue omeprazole/pantoprazole (5) Bilateral pulmonary embolism: Plan: Continue Xarelto (6) RAJEEV on CPAP: Plan: CPAP at bedtime as needed (7) Hypothyroid: Plan: Continue levothyroxine 112 mcg daily (8) Breast cancer: (9) Graves disease: History of Present Illness Chief Complaint: The patient presents to the emergency department in an acutely altered mental state, where her first noted while she was sitting in her reclining chair she began to stare off into space, became unresponsive, with shaking, and had drool coming down the corner of her mouth. This whole episode lasted about 4 to 5 minutes, and as the patient continued to not be responsive to him, he called EMS and the patient was brought to the emergency department for assessment. EMS reports the patient had flaccid left-sided weakness, and a stroke alert was called while the patient was in route. Primary Care Provider: Renato Perez DO The patient is a 81-year-old female with a past medical history including breast cancer, Graves' disease, GERD, sacroiliitis, lumbago, history of TIA, bilateral pulmonary embolism, acute saddle pulmonary embolus, RAJEEV on CPAP, DVT, hypothyroidism, syncope, pulmonary nodules, severe RAJEEV and osteopenia. Upon arrival to the ED, the patient was unresponsive with eyes open, and a blank gaze. She was taken to the CT scanner, and when she returned to the emergency department, she gradually became more alert, began answer questions, and able to follow commands. She was able to move all extremities equally, but had mild generalized weakness. Her did arrive while she was in the emergency department, and was able to relate her history and review of systems, as the patient was unable to do so. CT of the head, CTA head and neck were all negative for acute findings. The patient was presumed to have a new onset seizure, and was given Keppra and milligrams IV by the ED. The did report that there have been a couple of episodes in her past, that were similar to this present episode, however, the patient came to very quickly and did not have any persistent symptoms thereafter. Allergies Allergy/AdvReac Type Severity Reaction Status Date / Time morphine Allergy Severe RASH, Verified 03/03/22 23:30 DROPS BLOOD PRESSURE DRASTICALLY ampicillin [From Principen] Allergy Unknown Unknown Verified 03/03/22 23:30 doxycycline Allergy Unknown UNKNOWN Verified 03/03/22 23:30 nystatin [From Mycostatin] Allergy Unknown Unknown Verified 03/03/22 23:30 Sulfa (Sulfonamide Allergy Unknown Unknown Verified 03/03/22 23:30 Antibiotics) Home Medications Medication Instructions Recorded Confirmed Type sennosides 8.6 mg-docusate sodium 1 tab PO BID PRN Constipation 03/20/18 03/03/22 History 50 mg tablet (Senokot-S) calcium carbonate 600 mg-vitamin 2 cap PO DAILY 12/25/18 03/03/22 History D3 5 mcg (200 unit) capsule clotrimazole-betamethasone 1 1 appln topical DIRECTED PRN 12/25/18 03/03/22 History %-0.05 % topical cream Skin Irritation #1 g fluocinonide 0.05 % topical gel 1 appln topical DIRECTED #1 g 12/25/18 03/03/22 History lidocaine 5 % topical patch 1 patch topical DAILY PRN pain #90 01/06/19 03/03/22 Rx ea acetaminophen 500 mg tablet 500 - 1,000 mg PO Q6H PRN Pain 10/30/19 03/03/22 History (Tylenol Extra Strength) metronidazole 0.75 % topical gel 1 applic topical DAILY 10/30/19 03/03/22 History ipratropium bromide 42 mcg (0.06 2 spray intranasal BID PRN allergy 08/31/20 03/03/22 Rx %) nasal spray symptoms #15 mL albuterol sulfate 90 mcg/actuation 2 puff inhalation Q6H PRN 08/23/21 03/03/22 Rx aerosol inhaler Shortness Of Breath Or Wheezing #18 grams umeclidinium 62.5 mcg-vilanterol 1 inh inhalation DAILY #60 ea 08/23/21 03/03/22 Rx 25 mcg/actuation powdr for inhalation (Anoro Ellipta) omeprazole 20 mg capsule,delayed 20 mg PO Q2D #60 caps 10/26/21 03/03/22 Rx release ergocalciferol (vitamin D2) 1,250 50,000 unit PO WEEKLY #14 caps 12/28/21 03/03/22 Rx mcg (50,000 unit) capsule levothyroxine 112 mcg tablet 112 mcg PO DAILY #90 tabs 01/03/22 03/03/22 Rx clopidogrel 75 mg tablet 75 mg PO Q2D #90 tabs 02/21/22 03/03/22 Rx rivaroxaban 20 mg tablet (Xarelto) 20 mg PO HS 03/03/22 03/03/22 History Past Med/Surg History Medical History (Updated 03/04/22 @ 01:43 by Burke House MD) Acid reflux Bilateral hip bursitis Breast cancer (2007) "Abnormal right breast mammogram Status post biopsy revealing infiltrating ductal carcinoma Estrogen receptor positive, progesterone receptor positive, HER-2/wes positive Status post lumpectomy with sentinel lymph node biopsy stage [id number] Status post completion of radiation therapy 04/21/2008 received 6120 cGy " Graves disease History of TIA (transient ischemic attack) (08/2011) History of tobacco abuse Sacroiliitis Sleep apnea TIA (transient ischemic attack) Surgical History History of hip replacement left hip Hx of cholecystectomy Ovary removal, prophylactic S/P breast lumpectomy Family History Grandmother Breast cancer Mother Stroke Father Pulmonary embolism due to this Denies family history of Ovarian cancer Prostate cancer Myocardial infarction Colorectal cancer Social History Smoking Status: Former smoker Tobacco Type: Cigarettes Age Started Using Tobacco: 17; Age Quit Using Tobacco: 69; packs per day: 1; Second Hand Exposure: No; Hx Alcohol Use: No Hx Substance Use: No Preferred Language: Surinamese Communication Ability: Effective Visual Impairment: Limited Hearing Ability: Normal Green Pipefitter Required: No Beliefs That Will Affect Care: None marital status: Current Living Situation: Spouse current occupational status: retired 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 Feels Safe at Home: Yes Childhood Exposure to Second-Hand Smoke: Yes Dental Care, Regularly: Yes Physical Activity Frequency: 3-4 Times per Week Physical Activity Frequency Comment: weight lifting, aerobics 45minutes Seatbelt Use: always Sunscreen Use: Yes Assistive Devices: Glasses Review of Systems Review of Systems: Review of systems is primarily provided by the patient's , who is in attendance, as the patient is unable to due to her altered mental state Results & Data Results & Data ([facility]) Vital Signs (Past 12 Hours) Vital Signs Temp Pulse Resp BP Pulse Ox O2 Del Method O2 Flow Rate 03/04/22 00:30 77 22 130/48 L 100 03/04/22 00:00 78 20 123/52 L 100 Nasal Cannula 2 03/03/22 23:20 89 L Nasal Cannula 03/03/22 23:44 80 18 128/62 99 Nasal Cannula 4 03/03/22 23:20 36.9 C 91 H 20 135/55 L 89 L Room Air Laboratory Results Laboratory Results WBC 11.39 K/ul (4.8-10.8) H 03/03/22 23:23 RBC 4.41 M/uL (3.93-5.22) 03/03/22 23:23 Hgb 13.3 g/dl (12.0-16.0) 03/03/22 23:23 Hct 40.4 % (34.1-44.9) 03/03/22 23:23 MCV 91.6 fL (80.0-100.0) 03/03/22 23:23 MCH 30.2 pg (25.0-34.0) 03/03/22 23:23 MCHC 32.9 g/dL (32.0-36.0) 03/03/22 23:23 RDW Std Deviation 42.4 fL (36.4-46.3) 03/03/22 23:23 RDW Coeff of Jean 12.8 % (11.5-14.5) 03/03/22 23:23 Plt Count 215 K/uL (130-400) 03/03/22 23:23 MPV 8.2 fL (9.4-12.3) L 03/03/22 23:23 Immature Gran % (Auto) 0.7 % 11/11/22 23:23 Neut % (Auto) 85.5 % 03/03/22 23:23 Lymph % (Auto) 8.7 % 03/03/22 23:23 Wright % (Auto) 4.2 % 03/03/22 23:23 Eos % (Auto) 0.4 % 03/03/22 23:23 Baso % (Auto) 0.5 % 03/03/22 23:23 Neut # (Auto) 9.73 K/uL (1.4-6.5) H 03/03/22 23:23 Lymph # (Auto) 0.99 K/uL (1.2-3.4) L 03/03/22 23:23 Wright # (Auto) 0.48 K/uL (0.24-0.82) 03/03/22 23:23 Eos # (Auto) 0.05 K/uL (0-0.50) 03/03/22 23:23 Baso # (Auto) 0.06 K/uL (0-0.2) 03/03/22 23:23 Immature Gran # (Auto) 0.08 K/uL (0.00-0.02) H 03/03/22 23:23 PT 12.3 Seconds (9.0-12.0) H 03/03/22 23:23 INR 1.2 (0.9-1.1) H 03/03/22 23:23 APTT 27.9 Seconds (21.0-31.0) 03/03/22 23:23 PTT Ratio 1.0 03/03/22 23:23 Sodium 132 mmol/L (136-145) L 03/03/22 23:23 Potassium 4.3 mmol/L (3.5-5.1) 03/03/22 23:23 Chloride 101 mmol/L (98-107) 03/03/22 23:23 Carbon Dioxide 18 mmol/L (21-32) L 03/03/22 23:23 Anion Gap 13 (3-11) H 03/03/22 23:23 BUN 13 mg/dl (6-23) 03/03/22 23:23 Creatinine 0.83 mg/dl (0.6-1.2) 03/03/22 23:23 Est Cr Clr Drug Dosing 53.4 ml/min 03/03/22 23:23 Est GFR ( Amer) 77.2 ml/min 03/03/22 23:23 Est GFR (Non-Af Amer) 66.6 ml/min 03/03/22 23:23 BUN/Creatinine Ratio 15.7 (10-20) 03/03/22 23:23 Glucose 140 mg/dl (70-99(Fasting)) H 03/03/22 23:23 POC Glucose 137 mg/dl (70-99) H 03/03/22 23:20 Calcium 8.1 mg/dl (8.5-10.1) L 03/03/22 23:23 Phosphorus 3.8 mg/dl (2.5-4.9) 03/03/22 23:23 Magnesium 2.1 mg/dl (1.7-2.4) 03/03/22 23:23 Total Bilirubin 0.5 mg/dl (0.2-1.0) 03/03/22 23:23 AST 15 U/L (13-39) 03/03/22 23:23 ALT 12 U/L (7-52) 03/03/22 23:23 Alkaline Phosphatase 81 U/L (34-104) 03/03/22 23:23 Troponin I High Sens 7.2 pg/ml (0-14) 03/03/22 23:23 Total Protein 5.5 gm/dl (6.0-8.3) L 03/03/22 23:23 Albumin 3.5 gm/dl (3.4-5.0) 03/03/22 23:23 Globulin 2.0 gm/dl (2.5-4.0) L 03/03/22 23:23 Albumin/Globulin Ratio 1.8 (0.9-2) 03/03/22 23:23 TSH 0.995 uIu/ml (0.300-4.500) 03/03/22 23:23 Urine Color Yellow 03/03/22 23:47 Urine Appearance Clear (Clear) 03/03/22 23:47 Urine pH 5.5 (4.5-7.5) 03/03/22 23:47 Ur Specific [place] 1.020 (1.000-1.030) 03/03/22 23:47 Urine Protein Negative (Negative) 03/03/22 23:47 Urine Glucose (UA) Negative (Negative) 03/03/22 23:47 Urine Ketones Trace (Negative) H 03/03/22 23:47 Urine Blood Trace (Negative) H 03/03/22 23:47 Urine Nitrite Negative (Negative) 03/03/22 23:47 Urine Bilirubin Negative (Negative) 03/03/22 23:47 Urine Urobilinogen Negative (Negative) 03/03/22 23:47 Ur Leukocyte Esterase 2+ (Negative) H 03/03/22 23:47 Urine WBC (Auto) 10-30 /hpf (0-5) H 03/03/22 23:47 Urine RBC (Auto) 0-4 /hpf (0-4) 03/03/22 23:47 U Hyaline Cast (Auto) 1-5 /lpf (0-5) 03/03/22 23:47 U Epithel Cells (Auto) 10-20 /lpf (0-5) H 03/03/22 23:47 Urine Bacteria (Auto) Negative (Negative) 03/03/22 23:47 SARS-CoV-2, RNA, NAAT NEGATIVE (NEGATIVE) 03/03/22 23:40 Code Status & VTE Plan Code Status Full code VTE Prophylaxis Plan VTE Prophylaxis will be ordered: Yes (1) Breast cancer Breast location: unspecified site of breast Estrogen receptor status: unspecified Patient sex: female Laterality: unspecified laterality Qualified Code(s): C50.919 - Malignant neoplasm of unspecified site of unspecified female breast (2) Acid reflux Esophagitis presence: esophagitis presence not specified Qualified Code(s): K21.9 - Gastro-esophageal reflux disease without esophagitis (3) Hypothyroid Hypothyroidism type: unspecified Qualified Code(s): E03.9 - Hypothyroidism, unspecified
[2022-03-04] MEDS ORDERED: ALBUTEROL HFA 8 GM INHALER INH PRN (01:40)
[2022-03-04] MEDS ORDERED: ONDANSETRON INJ 2 MG/ML 2 ML VIAL IV PRN (01:40)
[2022-03-04] MEDS ORDERED: IPRATROPIUM BROMIDE NASAL SPRAY 0.06% 15ML PRN (01:40)
[2022-03-04] MEDS ORDERED: DOCUSATE SODIUM/SENNA 50/8.6MG TAB PO PRN (01:40)
[2022-03-04] MEDS ORDERED: ACETAMINOPHEN 325 MG TAB PO PRN (01:40)
--- NOTE | 2022-03-04 01:49 | Billing Data ---
Date of Service March 04, 2022 Coding Level of Care Code 11230 Initial Inpt Care Lvl 3
[2022-03-04] MEDS ORDERED: NSS + 20MEQ KCL 20 MEQ/1,000 ML BAG IV SCH (02:00)
[2022-03-04] MEDS ORDERED: LEVOTHYROXINE SODIUM 112 MCG TABLET PO SCH (06:30)
--- NOTE | 2022-03-04 07:31 | Neurology Consultation ---
Date of Consultation March 04, 2022 Assessment & Plan (1) Seizure: (2) Post-ictal state: (3) Dementia: Plan this patient experienced a witnessed (by her spouse) generalize seizure followed by a postictal state including confusion and lack of responsiveness as well as left sided weakness (Elroy's paralysis ). All of her focal neurologic deficits have resolved at this morning she has no focal weakness, numbness, coordination issues, cranial nerve findings, or speech problems. This morning, she displays dementia 0 (which is chronic ) and there is no evidence for meningeal signs or acute encephalopathy. The etiology of the seizure is not readily apparent. Laboratory studies were unrevealing for an obvious cause. Previous cerebral vascular disease or other intracranial abnormalities cannot be excluded although the CT scan of the head was unrevealing. although I cannot entirely exclude a new stroke there is no evidence of such on examination currently. CT angiography of the head and neck was largely unremarkable although she had some sort of distal left vertebral occlusion with recanalization and good collateral flow. Recommendations: 1. MRI of the brain with and without contrast. 2. continue with Xarelto and clopidogrel at current doses. 3. Continue levetiracetam 500 milligrams twice a day. Given her age this medication may not be the best long-term but we will keep this for now. 4. Increase activity as able. 5. I see no reason for an EEG at this time Overall, I spent a total of 60 minutes with this case including review of records, review of CT films, direct evaluation the patient at bedside, and discussion of the case with the patient and RN at bedside and Dr. Walker including differential diagnosis and treatment options. History of Present Illness Reason for Consultation: Patient is an 81-year-old, who I was asked to see at the request of Dr. House, neurologic consultation regarding seizure, question stroke. Requesting Physician: Dr. House Attending Physician: Epi Walker MD History of Present Illness This patient has a history of dementia, currently on no medications specifically for this diagnosis The patient has a history of TIA back in August of 2011, but I have no record of this. In addition, she has a history of a saddle PE in 2019 currently on Xarelto and clopidogrel. She has history of Graves disease and hypothyroidism, COPD, obstructive sleep, and her history of breast cancer back in 2007. Patient has no recall of the events that brought her to the hospital. I attempted to reach the patient's has been, 0wen, but he was not reachable by telephone. apparently, she was sitting in a recliner at her house, around 2245 on March 03, when she suddenly had a staring episode with shaking and drooling / blood coming out of her mouth. This lasted several minutes ( "4-5") then she was unresponsive with flaccid left-sided weakness. according to Dr. House his note, he spoke with the patient's in the stated that the patient had similar, but briefer episodes in the past. I have no further details regarding these. She arrived to the emergency room March 03, at 2320, with a temperature of 36.9, pulse 91 and regular, blood presure 135/55, and O2 saturation 89 percent. In the emergency room at 1st she was not following commands but later on she started to. Also, at , she was having non purposeful movement of the right arm and leg then She had generalized equal movement of the limbs but seem weak in general. CBC showed elevated white count of 11.3 and a sodium of 132. Glucose was 140 and calcium was 8.1. Magnesium was as was TSH and the rest of the Chem profile and CBC were. prolactin level was 22 ( normal postmenopausal is 2.7-19.6) Patient was given loading dose of levetiracetam and then put on [address] scan of the head showed no hemorrhage or acute changes. CT angiography of the neck was unremarkable without significant vessel stenoses or anomalies. CT angiography of the head revealed an occluded distal left vertebral with recanalization prior to entering into the basilar artery. There was good collateral flow. Currently the patient has a sore low back ( this is chronic ) and has no headache, other pain, vision issues, dizziness, weakness, numbness, or other complaints. Nursing describes her as being more alert now than she was when she came out to the floor. Allergies Allergy/AdvReac Type Severity Reaction Status Date / Time morphine Allergy Severe RASH, Verified 03/03/22 23:30 DROPS BLOOD PRESSURE DRASTICALLY ampicillin [From Principen] Allergy Unknown Unknown Verified 03/03/22 23:30 doxycycline Allergy Unknown UNKNOWN Verified 03/03/22 23:30 nystatin [From Mycostatin] Allergy Unknown Unknown Verified 03/03/22 23:30 Sulfa (Sulfonamide Allergy Unknown Unknown Verified 03/03/22 23:30 Antibiotics) Home Medications Medication Instructions Recorded Confirmed Type sennosides 8.6 mg-docusate sodium 1 tab PO BID PRN Constipation 03/20/18 03/03/22 History 50 mg tablet (Senokot-S) calcium carbonate 600 mg-vitamin 2 cap PO DAILY 12/25/18 03/03/22 History D3 5 mcg (200 unit) capsule clotrimazole-betamethasone 1 1 appln topical DIRECTED PRN 12/25/18 03/03/22 History %-0.05 % topical cream Skin Irritation #1 g fluocinonide 0.05 % topical gel 1 appln topical DIRECTED #1 g 12/25/18 03/03/22 History lidocaine 5 % topical patch 1 patch topical DAILY PRN pain #90 01/06/19 03/03/22 Rx ea acetaminophen 500 mg tablet 500 - 1,000 mg PO Q6H PRN Pain 10/30/19 03/03/22 History (Tylenol Extra Strength) metronidazole 0.75 % topical gel 1 applic topical DAILY 10/30/19 03/03/22 History ipratropium bromide 42 mcg (0.06 2 spray intranasal BID PRN allergy 08/31/20 03/03/22 Rx %) nasal spray symptoms #15 mL albuterol sulfate 90 mcg/actuation 2 puff inhalation Q6H PRN 08/23/21 03/03/22 Rx aerosol inhaler Shortness Of Breath Or Wheezing #18 grams umeclidinium 62.5 mcg-vilanterol 1 inh inhalation DAILY #60 ea 08/23/21 03/03/22 Rx 25 mcg/actuation powdr for inhalation (Anoro Ellipta) omeprazole 20 mg capsule,delayed 20 mg PO Q2D #60 caps 10/26/21 03/03/22 Rx release ergocalciferol (vitamin D2) 1,250 50,000 unit PO WEEKLY #14 caps 12/28/21 03/03/22 Rx mcg (50,000 unit) capsule levothyroxine 112 mcg tablet 112 mcg PO DAILY #90 tabs 01/03/22 03/03/22 Rx clopidogrel 75 mg tablet 75 mg PO Q2D #90 tabs 02/21/22 03/03/22 Rx rivaroxaban 20 mg tablet (Xarelto) 20 mg PO HS 03/03/22 03/03/22 History Patient History Medical History (Updated 03/04/22 @ 07:44 by Froy Rossi MD) Acid reflux Bilateral hip bursitis Breast cancer (2007) "Abnormal right breast mammogram Status post biopsy revealing infiltrating ductal carcinoma Estrogen receptor positive, progesterone receptor positive, HER-2/wes positive Status post lumpectomy with sentinel lymph node biopsy stage [id number] Status post completion of radiation therapy 04/21/2008 received 6120 cGy " Graves disease History of TIA (transient ischemic attack) (08/2011) History of tobacco abuse Sacroiliitis Sleep apnea TIA (transient ischemic attack) Surgical History History of hip replacement left hip Hx of cholecystectomy Ovary removal, prophylactic S/P breast lumpectomy Family History Grandmother Breast cancer Mother Stroke Father Pulmonary embolism due to this Denies family history of Ovarian cancer Prostate cancer Myocardial infarction Colorectal cancer Social History Smoking Status: Former smoker Tobacco Type: Cigarettes Age Started Using Tobacco: 17; Age Quit Using Tobacco: 69; packs per day: 1; Second Hand Exposure: Yes; Hx Alcohol Use: No Hx Substance Use: No Preferred Language: Scottish Communication Ability: Effective Visual Impairment: Limited Hearing Ability: Normal Resource Center Teacher Required: No Beliefs That Will Affect Care: None marital status: Current Living Situation: Spouse current occupational status: retired 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 Feels Safe at Home: Yes Childhood Exposure to Second-Hand Smoke: Yes Dental Care, Regularly: Yes Physical Activity Frequency: 3-4 Times per Week Physical Activity Frequency Comment: weight lifting, aerobics 45minutes Seatbelt Use: always Sunscreen Use: Yes Assistive Devices: None Review of Systems Constitutional: + fatigue and + weakness; no fever Eyes: no diplopia, no eye pain and no worsening vision Ear, Nose, Mouth, Throat: no ear pain, no tinnitus, no hearing loss, no dizziness, no snoring, no hoarseness and no dysphagia Respiratory: no cough and no dyspnea Cardiovascular: no chest pain, no palpitations and no lightheadedness Gastrointestinal: no abdominal pain, no nausea and no vomiting Genitourinary: no dysuria, no urinary frequency and no urinary incontinence Musculoskeletal: + back pain and + neck pain; no radicular pain, no joint pain and no myalgia Integumentary: no rash and no lesions Neurologic: + generalized weakness and + memory loss; no gait abnormality, no localized weakness, no tingling, no numbness, no tremor(s), no abnormal movements, no headache(s), no abnormal speech and no confusion Psychiatric: no depression, no irritability, no anxiety, no difficulty concentrating, no confusion and no hallucinations Endocrine: no fatigue and no flushing Hematologic / Lymphatic: no easy bleeding and no easy bruising Allergy / Immunological: no urticaria and no problem reported Exam (Neuro) Physical Exam: The patient is right-handed. The patient was sleeping when we came into the room, but was easily aroused with voice. She would answer questions and stay alert but when not spoken to she would close her eyes and tried to go back to sleep. Otherwise, The patient is awake, alert, and attentive. Speech is normal without any aphasia or dysarthria. The patient can name objects, repeat phrases, and has normal spontaneous speech. mood is reasonable and affect is appropriate. She has poor memory for any recent events and actually has poor memory for her past medical problems and information about her health. She has retention of some remote memories. Pupils are 4 mm bilaterally and reactive to light. Extraocular eye muscles are intact without nystagmus. Visual acuity and visual moses seem normal grossly to confrontation. There are no deficits to sensation in the face in all 3 distributions of the fifth cranial nerve bilaterally. Corneal reflexes are positive bilaterally. Facial strength and symmetry was normal bilaterally. Hearing seems normal bilaterally. Palate moves well without asymmetry. There is normal sternocleidomastoid and trapezius (shoulder shrug) strength bilaterally. Tongue is midline with good strength bilaterally. Neck has a full range of motion without discomfort. There are no cervical bruits bilaterally. There are no cranial or ocular bruits. Heart is without murmur. There is a regular rhythm and rate. Cervical, thoracic, and lumbar spine are nontender to palpation. Gait Was not tested, and stance sitting up in bed is poor because of her back pain and she needed the assistance of at least 1. With outstretched arms there is no drift. There are no resting, postural, or action tremors. There is no ataxia with finger to nose testing. There is good facility in the hands. No other abnormal involuntary movements are noted. Motor strength is 5/5 diffusely in the arms bilaterally including deltoids, biceps, triceps, brachioradialis, wrist flexors and extensors, laborer aquatic life, and intrinsic hand muscles. Motor strength is 5/5 diffusely in the legs bilaterally including hip flexors, quadriceps, hamstrings, gastrocnemius, tibialis anterior, tibialis posterior, and Peroneii muscles. Toe extensors are normal and there is good bulk in the extensor digitorum brevis muscles bilaterally. The limbs have good tone without rigidity or spasticity. There is no atrophy noted in the muscles. Muscle bulk is normal, there is no tenderness to palpation, no myotonia to percussion, and no fasciculations seen. Sensory examination is intact to touch and pin throughout all 4 limbs diffusely. Reflexes are 1/4 in the biceps, triceps, and brachioradialis tendons bilaterall y. quadriceps and Achilles tendon reflexes were absent bilaterally. There is no clonus bilaterally. Toes are downgoing with plantar stimulation bilaterally. Peripheral pulses are present and of normal quality distally in all 4 limbs. There is no peripheral edema noted in the limbs. Results & Data ([facility]) Vital Signs (Past 12 Hours) Vital Signs Temp Pulse Pulse Resp BP BP Pulse Ox 03/04/22 01:40 36.9 C 73 18 124/57 L 97 03/04/22 01:57 03/03/22 23:05 36.8 C 104 H 16 135/55 L 99 03/04/22 00:30 77 22 130/48 L 100 03/04/22 00:00 78 20 123/52 L 100 03/03/22 23:20 89 L 03/03/22 23:44 80 18 128/62 99 03/03/22 23:20 36.9 C 91 H 20 135/55 L 89 L O2 Del Method O2 Flow Rate 03/04/22 01:40 Room Air 03/04/22 01:57 Nasal Cannula 2 03/03/22 23:05 Nasal Cannula 4 03/04/22 00:30 03/04/22 00:00 Nasal Cannula 2 03/03/22 23:20 Nasal Cannula 03/03/22 23:44 Nasal Cannula 4 03/03/22 23:20 Room Air PG Care Time/CCT Total # of Minutes Spent Total Time Spent with Patient: Total time spent is greater than 50% in coordination of care (as documented) at patient's floor/unit and/or counseling patient: Coding Level of Care Code 81179 Initial Inpt Care Lvl 3 Diagnoses Seizure R56.9 Post-ictal state R56.9 Dementia F03.90 Time Spent (min) 60
--- NOTE | 2022-03-04 07:50 | Electrocardiogram Report ---
Test Reason : Blood Pressure : / mmHG Vent. Rate : 087 BPM Atrial Rate : 087 BPM P-R Int : 144 ms QRS Dur : 082 ms QT Int : 372 ms P-R-T Axes : 071 076 073 degrees QTc Int : 447 ms Normal sinus rhythm Normal ECG When compared with ECG of 29-OCT-2019 23:10, No significant change was found Confirmed by Fredy Campbell ([id number]) on 03/04/2022 7:50:02 AM Referred By: REFERRED SELF Confirmed By:Fredy Campbell
--- NOTE | 2022-03-04 07:52 | Electrocardiogram Report ---
Test Reason : Blood Pressure : / mmHG Vent. Rate : 072 BPM Atrial Rate : 072 BPM P-R Int : 142 ms QRS Dur : 080 ms QT Int : 402 ms P-R-T Axes : 032 057 074 degrees QTc Int : 440 ms Normal sinus rhythm When compared with ECG of 03-MAR-2022 23:26, Minor ST elevation in multiple leads now present Confirmed by Fredy Campbell ([id number]) on 03/04/2022 7:52:13 AM Referred By: REFERRED SELF Confirmed By:Fredy Campbell
--- NOTE | 2022-03-04 08:05 | CT Scan Report ---
HEAD CT NONCONTRAST CT DOSE: HISTORY: Stroke Like Symptoms TECHNIQUE: Multiaxial CT images of the head were performed without the use of intravenous contrast. A utomated exposure control was utilized for this study. A dose lowering technique was utilized adheri ng to the principles of ALARA. Comparison: Head CT 10/30/2019. Findings: The paranasal sinuses and mastoid air cells are clear. The calvarium and skull base are int act. There is no mass, hematoma, midline shift, acute infarct. White matter hypodensity is nonspecifi c but suggestive of microvascular ischemic change. The ventricles and sulci demonstrate mild age-rela valeriy involutional changes. Impression: No acute intracranial abnormality. ACT 112: Negative or not required by law. Electronically signed by: Asif Szymanski M.D. 03/04/2022 8:04 AM
--- NOTE | 2022-03-04 08:06 | CT Scan Report ---
HEAD & NECK CTA HISTORY: Stroke Like Symptoms TECHNIQUE: Multiaxial CT images of the head were performed following the intravenous administration o f contrast to evaluate the major cerebral vessels. Multiaxial CT images of the neck were also perform ed following the intravenous administration of contrast to evaluate the major cervical vessels. Maxim um intensity projection images were also obtained. A dose lowering technique was utilized adhering to the principles of ALARA. COMPARISON: Carotid Doppler 10/30/2019. Chest CT 08/22/2021. FINDINGS: There is no mass, hematoma, midline shift, or acute infarct. Visualized intracranial internal carotid arteries, distal vertebral arteries, and basilar artery are widely patent. There is no significant s tenosis, occlusion, or aneurysm seen within the bilateral ACAs, MCAs, or chief optometry service. Persistent bilateral p osterior circulations The aortic arch and proximal great vessels are widely patent. There is no significant stenosis, occ lusion, or dissection identified within the bilateral common carotid, internal carotid, or vertebral arteries. Emphysema. A 4 mm nodule within the right upper lobe on image 13. A 5 mm nodule within the left upper lobe on image 66. These remain stable. IMPRESSION: 1. No significant stenosis, occlusion, or aneurysm within the [place]. 2. No significant stenosis, occlusion, or dissection identified within the carotid or vertebral arter ies. ACT 112: Negative or not required by law. Electronically signed by: Asif Szymanski M.D. 03/04/2022 8:04 AM
--- NOTE | 2022-03-04 08:06 | CT Scan Report ---
HEAD & NECK CTA HISTORY: Stroke Like Symptoms TECHNIQUE: Multiaxial CT images of the head were performed following the intravenous administration o f contrast to evaluate the major cerebral vessels. Multiaxial CT images of the neck were also perform ed following the intravenous administration of contrast to evaluate the major cervical vessels. Maxim um intensity projection images were also obtained. A dose lowering technique was utilized adhering to the principles of ALARA. COMPARISON: Carotid Doppler 10/30/2019. Chest CT 08/22/2021. FINDINGS: There is no mass, hematoma, midline shift, or acute infarct. Visualized intracranial internal carotid arteries, distal vertebral arteries, and basilar artery are widely patent. There is no significant s tenosis, occlusion, or aneurysm seen within the bilateral ACAs, MCAs, or cafe operator. Persistent bilateral p osterior circulations The aortic arch and proximal great vessels are widely patent. There is no significant stenosis, occ lusion, or dissection identified within the bilateral common carotid, internal carotid, or vertebral arteries. Emphysema. A 4 mm nodule within the right upper lobe on image 13. A 5 mm nodule within the left upper lobe on image 66. These remain stable. IMPRESSION: 1. No significant stenosis, occlusion, or aneurysm within the [place]. 2. No significant stenosis, occlusion, or dissection identified within the carotid or vertebral arter ies. ACT 112: Negative or not required by law. Electronically signed by: Asif Szymanski M.D. 03/04/2022 8:04 AM
--- NOTE | 2022-03-04 08:34 | XRay Report ---
XR chest 1V portable HISTORY: Altered mental status. COMPARISON: Chest 10/29/2019. FINDINGS: No pneumothorax. There is mild elevation of the left hemidiaphragm, unchanged. The heart is mildly enlarged. There is progressive interstitial/vascular thickening consistent with mild congesti ve change. Left basilar linear densities remain stable and favor subsegmental atelectasis or scarring . IMPRESSION: Cardiomegaly with mild congestive change. ACT 112: Negative or not required by law. Electronically signed by: Asif Szymanski M.D. 03/04/2022 8:32 AM
[2022-03-04] MEDS ORDERED: metroNIDAZOLE 0.75% TOPICAL GEL 45 GM TUBE TOP SCH (09:00)
[2022-03-04] MEDS ORDERED: CLOPIDOGREL BISULFATE 75 MG TAB PO SCH (09:00)
[2022-03-04] MEDS ORDERED: levETIRAcetam 500 MG TAB PO SCH (09:00)
[2022-03-04] MEDS ORDERED: UMECLIDINIUM/VILANTEROL 62.5/25MCG 7 PUFFS/INHALER INH SCH (09:00)
[2022-03-04] MEDS ORDERED: CALCIUM 600MG + VIT D 400 IU TAB PO SCH (09:00)
[2022-03-04] MEDS ORDERED: PANTOprazole 40 MG TAB PO SCH (09:00)
--- NOTE | 2022-03-04 13:08 | Hospitalist Progress Note ---
Date of Service March 04, 2022 Assessment & Plan (1) Seizure: Plan: Acute seizure activity with postictal state on admission. Now back to baseline. - Continue Keppra 500 mg p.o. twice daily - MRI brain pending - No need for EEG per neurology. (2) Post-ictal state: Plan: - Resolved (3) History of TIA (transient ischemic attack): Plan: - Continue clopidogrel (4) Acid reflux: Plan: - Continue omeprazole/pantoprazole (5) Bilateral pulmonary embolism: Plan: - Continue Xarelto (6) RAJEEV on CPAP: Plan: - CPAP at bedtime as needed (7) Hypothyroid: Plan: TSH was 1.0 this admission. - Continue levothyroxine 112 mcg daily (8) Breast cancer: Plan: - MRI brain as above for any concern for brain mets, but quite low. (9) Graves disease: Admission and Anticipated Discharge Date Admission Date: March 04, 2022 Subjective Not willing to discuss much today. Per IV team, she just got a new IV placed, and she was quite unhappy with them. For me she denies any issues, but really doesn't open her eyes or participate much Reports no fevers/chills, chest pain, shortness of breath, abdominal pain, nausea, or vomiting. Physical Exam Constitutional: WD/WN, vitals as above Eyes: EOM intact bilaterally; no conjunctival abnormality ENMT: external ear and nose normal, oropharynx normal Neck: trachea midline, no thyromegaly normal visual inspection Respiratory: normal respiratory effort, lungs clear to auscultation no respiratory distress Cardiovascular: RRR, no murmur, no edema Gastrointestinal (Abdomen): Inspection/Auscultation: abdomen normal to inspection; abdomen not distended Musculoskeletal: no cyanosis or clubbing, extremities motor strength 5/5 Skin: no rashes, warm and dry Neurologic: moves all extremities and awake Psychiatric: Orientation: alert, oriented to person and cooperative Results & Data Results & Data ([facility]) Vital Signs (Past 12 Hours) Vital Signs Temp Pulse Pulse Resp BP Pulse Ox O2 Del Method 03/04/22 08:00 73 03/04/22 01:40 36.9 C 73 18 124/57 L 97 Room Air 03/04/22 01:57 Nasal Cannula O2 Flow Rate 03/04/22 08:00 03/04/22 01:40 03/04/22 01:57 2 PG Care Time/CCT Total # of Minutes Spent Total Time Spent with Patient: Total time spent is greater than 50% in coordination of care (as documented) at patient's floor/unit and/or counseling patient: Coding Level of Care Code 17088 Subseq Hosp Care Lvl 2 Diagnoses Seizure R56.9 Post-ictal state R56.9 History of TIA (transient ischemic attack) Z86.73 Acid reflux K21.9 Esophagitis presence: esophagitis presence not specified Bilateral pulmonary embolism I26.99 RAJEEV on CPAP G47.33; Z99.89 Hypothyroid E03.9 Hypothyroidism type: unspecified Breast cancer C50.919 Breast location: unspecified site of breast Estrogen receptor status: unspecified Patient sex: female Laterality: unspecified laterality Graves disease E05.00 (1) Acid reflux Esophagitis presence: esophagitis presence not specified Qualified Code(s): K21.9 - Gastro-esophageal reflux disease without esophagitis (2) Hypothyroid Hypothyroidism type: unspecified Qualified Code(s): E03.9 - Hypothyroidism, unspecified (3) Breast cancer Breast location: unspecified site of breast Estrogen receptor status: unspecified Patient sex: female Laterality: unspecified laterality Qualified Code(s): C50.919 - Malignant neoplasm of unspecified site of unspecified female breast
[2022-03-04] MEDS ORDERED: GADOBUTROL 7.5ML VIAL IV ONE (14:11)
--- NOTE | 2022-03-04 15:59 | Magnetic Resonance Report ---
Brain MRI WITH AND WITHOUT CONTRAST HISTORY: seizure activity TECHNIQUE: Multiplanar multisequence MRI of the brain was performed both before and after the intrave nous administration of contrast. COMPARISON STUDY: Head CT 03/03/2022. Brain MRI 08/31/2011. FINDINGS: There is no mass, hematoma, midline shift, or acute infarct. The paranasal sinuses are patrice r. The mastoid air cells are clear. The ventricles and sulci demonstrate mild age-related involutiona l changes. Scattered foci of T2 hyperintensity seen within the periventricular and subcortical white matter are nonspecific but suggestive of mild microvascular ischemic changes. The major vascular flow voids at the skull base are well-maintained. Bilateral lens replacements are noted. The bilateral te mporal lobes are symmetric. IMPRESSION: No acute intracranial abnormality. ACT 112: Negative or not required by law. Electronically signed by: Asif Szymanski M.D. 03/04/2022 3:57 PM
[2022-03-04] MEDS ORDERED: RIVAROXABAN 20 MG TAB PO SCH (16:30)
--- NOTE | 2022-03-05 15:30 | Discharge Summary ---
Date of Service March 04, 2022 Admission HPI Per Admitting Provider The patient is a 81-year-old female with a past medical history including breast cancer, Graves' disease, GERD, sacroiliitis, lumbago, history of TIA, bilateral pulmonary embolism, acute saddle pulmonary embolus, RAJEEV on CPAP, DVT, hypothyroidism, syncope, pulmonary nodules, severe RAJEEV and osteopenia. Upon arrival to the ED, the patient was unresponsive with eyes open, and a blank gaze. She was taken to the CT scanner, and when she returned to the emergency department, she gradually became more alert, began answer questions, and able to follow commands. She was able to move all extremities equally, but had mild generalized weakness. Her did arrive while she was in the emergency department, and was able to relate her history and review of systems, as the patient was unable to do so. CT of the head, CTA head and neck were all negative for acute findings. The patient was presumed to have a new onset seizure, and was given Keppra and milligrams IV by the ED. The did report that there have been a couple of episodes in her past, that were similar to this present episode, however, the patient came to very quickly and did not have any persistent symptoms thereafter. Principal Diagnosis New onset seizure Discharge Exam Constitutional WD/WN, vitals as above Eyes EOM intact bilaterally; no conjunctival abnormality ENMT external ear and nose normal, oropharynx normal Neck trachea midline, no thyromegaly normal visual inspection Respiratory normal respiratory effort, lungs clear to auscultation no respiratory distress Cardiovascular RRR, no murmur, no edema Gastrointestinal (Abdomen) Inspection/Auscultation: abdomen normal to inspection; abdomen not distended Musculoskeletal no cyanosis or clubbing, extremities motor strength 5/5 Skin no rashes, warm and dry Neurologic moves all extremities and awake Psychiatric Orientation: alert, oriented to person and cooperative Discharge Data Allergies Allergy/AdvReac Type Severity Reaction Status Date / Time morphine Allergy Severe RASH, Verified 03/03/22 23:30 DROPS BLOOD PRESSURE DRASTICALLY ampicillin [From Principen] Allergy Unknown Unknown Verified 03/03/22 23:30 doxycycline Allergy Unknown UNKNOWN Verified 03/03/22 23:30 nystatin [From Mycostatin] Allergy Unknown Unknown Verified 03/03/22 23:30 Sulfa (Sulfonamide Allergy Unknown Unknown Verified 03/03/22 23:30 Antibiotics) Consultations 03/03/22 23:51 ED Decision to Admit Stat 03/04/22 01:40 Consult Neurology Routine Ordered Studies 03/03/22 22:57 CT angio head w con Stat CT angio neck with con Stat CT head/brain wo con Stat 03/04/22 01:46 MR brain seizure wo/w con Routine Hospital Course (1) Seizure: Acute seizure activity with postictal state on admission. Now back to baseline. - Continue Keppra 500 mg p.o. twice daily - MRI brain on 03/04 without any concerning findings. - No need for EEG per neurology. -> Cleared by neurology for discharge. Follow up with a neuro provider in 1-2 weeks. (2) Post-ictal state: - Resolved (3) History of TIA (transient ischemic attack): - Continue clopidogrel (4) Acid reflux: - Continue omeprazole/pantoprazole (5) Bilateral pulmonary embolism: - Continue Xarelto (6) RAJEEV on CPAP: - CPAP at bedtime as needed (7) Hypothyroid: TSH was 1.0 this admission. - Continue levothyroxine 112 mcg daily (8) Breast cancer: - MRI brain as above without any concern for brain mets. (9) Graves disease: Total Time Total Time Spent Total Time Spent (In Minutes): 35 Discharge Plan Discharge Items Patient Disposition: Home - Self-Care Reason For Visit: NEW ONSET SEIZURES Discharge Diagnosis: New seizure Activity: Resume your previous activity Non-emergency contact: Primary Care Provider and Neurologist Call non-emergency contact if: your symptoms worsen Follow-up/Referrals: Froy Rossi MD [Physician] - 03/13/22 10:30 am (Please see Dr. Rossi or another neurology provider in 1-2 weeks after discharge. 03/13/[address] CLARKE) Renato Perez, [Primary Care Provider] - Diet: Heart Healthy Addtl Attending Provider Instructions: Ms. Young, You were admitted to the hospital with a new seizure. Sometimes this happens for a reason, and sometimes it just occurs without any underlying cause. Dr. Rossi feels like you should be on an anti-seizure medication until you see him or another neurology provider in 1-2 weeks. Your MRI looked great, and we have no concerns for any stroke or other issues. Pending Studies at Discharge: No Stand-Alone Forms: My Txt4, Smoking Cessation Medications and DC Order Prescriptions: New levetiracetam [Keppra] 500 mg Tablet 500 mg PO BID Qty: 60 0RF Continued sennosides-docusate sodium [Senokot-S] 8.6-50 mg tablet 1 tab PO BID PRN (Reason: Constipation) lidocaine 5 % adhesive patch,medicated 1 patch topical DAILY PRN (Reason: pain) Qty: 90 1RF ipratropium bromide 42 mcg (0.06 %) spray,non-aerosol 2 spray INTNAS BID PRN (Reason: allergy symptoms) Qty: 15 5RF omeprazole 20 mg capsule,delayed release(DR/EC) 20 mg PO Q2D Qty: 60 5RF ergocalciferol (vitamin D2) 1,250 mcg (50,000 unit) capsule 50,000 unit PO WEEKLY Qty: 14 3RF Rx Instructions: takes sunday levothyroxine 112 mcg tablet 112 mcg PO DAILY Qty: 90 3RF clopidogrel 75 mg tablet 75 mg PO Q2D Qty: 90 3RF calcium carbonate-vitamin D3 600 mg calcium- 200 unit capsule 2 cap PO DAILY clotrimazole-betamethasone 1-0.05 % cream 1 appln topical DIRECTED PRN (Reason: Skin Irritation) Qty: 1 fluocinonide 0.05 % gel 1 appln topical DIRECTED Qty: 1 Rx Instructions: apply to scalp Anoro Ellipta 62.5-25 mcg/actuation blister with device 1 inh inhalation DAILY Qty: 60 8RF albuterol sulfate 90 mcg/actuation HFA aerosol inhaler 2 puff INH Q6H PRN (Reason: Shortness Of Breath Or Wheezing) Qty: 18 3RF acetaminophen [Tylenol Extra Strength] 500 mg Tablet 500 - 1,000 mg PO Q6H PRN (Reason: Pain) metronidazole 0.75 % Gel 1 applic TOPICAL DAILY Rx Instructions: apply to face Xarelto 20 mg tablet 20 mg PO HS Rx Instructions: must administer with evening meal Discharge Orders: Discharge Order (Routine); Ordered 03/04/22 Ordered By: Epi Walker Admission Data Admit Date/Time: 03/04/22 00:19 Attending Provider: Epi Walker Admit Provider: [facility] Primary Care Provider: Renato Perez Other Providers: [facility] ; Froy Rossi Other Interventions: Discharge Summary Assessment (RN) Last Done: 03/04/22 16:58 Coding Level of Care Code D/C DAY MANAGEMENT >30 MINS Diagnoses Seizure R56.9 Post-ictal state R56.9 History of TIA (transient ischemic attack) Z86.73 Acid reflux K21.9 Esophagitis presence: esophagitis presence not specified Bilateral pulmonary embolism I26.99 RAJEEV on CPAP G47.33; Z99.89 Hypothyroid E03.9 Hypothyroidism type: unspecified Breast cancer C50.919 Breast location: unspecified site of breast Estrogen receptor status: unspecified Patient sex: female Laterality: unspecified laterality Graves disease E05.00
== END 2022-03-04 17:54 | disposition home or self-care (01) | DRG 101 ==
LOC: ED 22:59 → 2E 03-04 00:19 → SUATTDRO 03-04 00:19 → 2E 03-04 01:03